=== PATIENT | male | born 1955 | race Caucasian/White ===

== ENCOUNTER 2020-04-15 15:09 | Outpatient (REF) | payer OTHER, SELFPAY | END 2020-04-15 15:10 | disposition home or self-care (01) | LOC: HO.LNP 15:09 | PROVIDERS: Visit Provider Internal Medicine | DX: Z20.828 Contact with and (suspected) exposure to other viral communicable diseases (principal) | CPT/HCPCS: U0003 ==

== ENCOUNTER 2020-08-21 10:48 | Outpatient (REF) | payer OTHER, SELFPAY ==
[2020-08-21 13:49] LABS: MANUAL DIFF FLAG NO
[2020-08-21 13:53] LABS: Basophils Percent Auto 0.5 % (0-2); Eosinophils Absolute Auto 0.4 X10*3/uL (0.0-0.4); Eosinophils Percent Auto 4.9 % (0-4); Hematocrit 45.4 % (42-52); Hemoglobin 14.7 g/dl (14.0-18.0); Imm Gran Abs Auto 0.04 X10*3/uL (0.00-0.03); Imm Gran Pct Auto 0.5 % (0.0-0.4); Lymphocytes Absolute Auto 2.1 X10*3/uL (1.2-4.9); Lymphocytes Percent Auto 26.3 % (20-40); Mean Corpuscular HGB Conc 32.4 g/dl (31.0-36.0); Mean Corpuscular Hemoglobin 25.2 pg (27.0-33.0); Mean Corpuscular Volume 77.7 fL (80-98); Mean Platelet Volume 9.8 fL (9.4-12.4); Monocytes Absolute Auto 0.7 X10*3/uL (0.1-1.2); Monocytes Percent Auto 8.3 % (2-11); Neutrophils Absolute Auto 4.6 X10*3/uL (2.0-8.3); Neutrophils Percent Auto 59.5 % (45-73); Platelet Count 201 X10*3/uL (160-400); Red Blood Count 5.84 X10*6/uL (4.60-5.80); Red Cell Distribution Width 14.2 % (11.0-16.0); White Blood Count 7.8 X10*3/uL (4.8-10.8)
[2020-08-21 14:07] LABS: Estimated Average Glucose 263 mg/dL; Hemoglobin A1c % 10.8 %
[2020-08-21 14:26] LABS: Alanine Aminotransferase 37 U/L (0-40); Albumin Level 4.2 g/dL (3.5-5.0); Alkaline Phosphatase 53 U/L (39-117); Anion Gap 18 (12-20); Aspartate Amino Transferase 29 U/L (5-37); Bilirubin Total 0.6 mg/dL (0.0-1.0); Blood Urea Nitrogen 12 mg/dL (9-16); Calcium 9.2 mg/dL (8.4-10.2); Carbon Dioxide 22 mmol/L (22-29); Chloride 100 mmol/L (96-108); Estimated Glomerular Filt Rate > 60; Glucose Fasting 243 mg/dL (60-99); Potassium 4.5 mmol/L (3.3-5.1); Sodium 135 mmol/L (135-145); Total Protein 7.4 g/dL (6.5-8.0)
== END 2020-08-21 10:49 | disposition home or self-care (01) ==
LOC: HO.10HDL 10:48
PROVIDERS: Visit Provider Internal Medicine
DX: K21.9 Gastro-esophageal reflux disease without esophagitis (principal); E11.9 Type 2 diabetes mellitus without complications; I10 Essential (primary) hypertension; E78.00 Pure hypercholesterolemia, unspecified
CPT/HCPCS: 36415; 80053; 83036; 85025

== ENCOUNTER 2021-02-09 11:32 | Outpatient (REF) | payer OTHER, SELFPAY ==
[2021-02-09 13:59] LABS: MANUAL DIFF FLAG NO
[2021-02-09 14:10] LABS: Basophils Percent Auto 0.4 % (0-2); Eosinophils Absolute Auto 0.4 X10*3/uL (0.0-0.4); Eosinophils Percent Auto 4.3 % (0-4); Hematocrit 47.5 % (42-52); Hemoglobin 15.3 g/dl (14.0-18.0); Imm Gran Abs Auto 0.06 X10*3/uL (0.00-0.03); Imm Gran Pct Auto 0.7 % (0.0-0.4); Lymphocytes Absolute Auto 2.4 X10*3/uL (1.2-4.9); Lymphocytes Percent Auto 29.5 % (20-40); Mean Corpuscular HGB Conc 32.2 g/dl (31.0-36.0); Mean Corpuscular Volume 77.6 fL (80-98); Mean Platelet Volume 10.3 fL (9.4-12.4); Monocytes Absolute Auto 0.7 X10*3/uL (0.1-1.2); Monocytes Percent Auto 8.5 % (2-11); Neutrophils Absolute Auto 4.6 X10*3/uL (2.0-8.3); Neutrophils Percent Auto 56.6 % (45-73); Platelet Count 232 X10*3/uL (160-400); Red Blood Count 6.12 X10*6/uL (4.60-5.80); Red Cell Distribution Width 14.2 % (11.0-16.0); White Blood Count 8.2 X10*3/uL (4.8-10.8)
[2021-02-09 14:25] LABS: Estimated Average Glucose 246 mg/dL; Hemoglobin A1c % 10.2 %
[2021-02-09 14:36] LABS: Alanine Aminotransferase 34 U/L (0-40); Albumin Level 4.4 g/dL (3.5-5.0); Alkaline Phosphatase 47 U/L (39-117); Anion Gap 18 (12-20); Aspartate Amino Transferase 31 U/L (5-37); Bilirubin Total 0.7 mg/dL (0.0-1.0); Blood Urea Nitrogen 9 mg/dL (9-16); Calcium 9.8 mg/dL (8.4-10.2); Carbon Dioxide 23 mmol/L (22-29); Chloride 101 mmol/L (96-108); Estimated Glomerular Filt Rate > 60; Glucose Random 260 mg/dL (60-115); Potassium 4.8 mmol/L (3.3-5.1); Sodium 137 mmol/L (135-145); Total Protein 7.4 g/dL (6.5-8.0)
== END 2021-02-09 11:33 | disposition home or self-care (01) ==
LOC: HO.10HDL 11:32
PROVIDERS: Visit Provider Internal Medicine
DX: E11.9 Type 2 diabetes mellitus without complications (principal); I25.10 Atherosclerotic heart disease of native coronary artery without angina pectoris; I10 Essential (primary) hypertension
CPT/HCPCS: 36415; 80053; 83036; 85025

== ENCOUNTER 2021-05-25 11:28 | Outpatient (REF) | payer OTHER, SELFPAY ==
[2021-05-25 13:41] LABS: Alanine Aminotransferase 33 U/L (0-40); Albumin Level 4.3 g/dL (3.5-5.0); Alkaline Phosphatase 50 U/L (39-117); Anion Gap 17 (12-20); Aspartate Amino Transferase 23 U/L (5-37); Bilirubin Total 0.6 mg/dL (0.0-1.0); Blood Urea Nitrogen 14 mg/dL (9-16); Carbon Dioxide 27 mmol/L (22-29); Chloride 100 mmol/L (96-108); Estimated Average Glucose 258 mg/dL; Estimated Glomerular Filt Rate > 60; Glucose Random 344 mg/dL (60-115); Hemoglobin A1c % 10.6 %; Potassium 4.9 mmol/L (3.3-5.1); Sodium 139 mmol/L (135-145); Total Protein 7.5 g/dL (6.5-8.0)
== END 2021-05-25 11:29 | disposition home or self-care (01) ==
LOC: HO.10HDL 11:28
PROVIDERS: Visit Provider Internal Medicine
DX: E11.9 Type 2 diabetes mellitus without complications (principal); I10 Essential (primary) hypertension; I25.10 Atherosclerotic heart disease of native coronary artery without angina pectoris
CPT/HCPCS: 36415; 80053; 83036

== ENCOUNTER 2022-03-18 11:19 | Outpatient (REF) | payer OTHER, SELFPAY ==
[2022-03-18 13:37] LABS: MANUAL DIFF FLAG NO
[2022-03-18 13:40] LABS: Basophils Absolute Auto 0.1 X10*3/uL (0.0-0.2); Basophils Percent Auto 0.6 % (0-2); Eosinophils Absolute Auto 0.5 X10*3/uL (0.0-0.4); Eosinophils Percent Auto 4.6 % (0-4); Hematocrit 47.5 % (42.0-52.0); Hemoglobin 14.9 g/dl (14.0-18.0); Imm Gran Abs Auto 0.07 X10*3/uL (0.00-0.03); Imm Gran Pct Auto 0.7 % (0.0-0.4); Lymphocytes Absolute Auto 2.6 X10*3/uL (1.2-4.9); Lymphocytes Percent Auto 25.9 % (20-40); Mean Corpuscular HGB Conc 31.4 g/dl (31.0-36.0); Mean Corpuscular Hemoglobin 24.5 pg (27.0-33.0); Mean Corpuscular Volume 78.1 fL (80.0-98.0); Mean Platelet Volume 9.7 fL (9.4-12.4); Monocytes Absolute Auto 0.9 X10*3/uL (0.1-1.2); Monocytes Percent Auto 9.1 % (2-11); Neutrophils Absolute Auto 5.8 x10*3/uL (2.0-8.3); Neutrophils Percent Auto 59.1 % (45-73); Platelet Count 228 X10*3/uL (160-400); Red Blood Count 6.08 X10*6/uL (4.60-5.80); Red Cell Distribution Width 14.1 % (11.0-16.0); White Blood Count 9.8 X10*3/uL (4.8-10.8)
[2022-03-18 13:50] LABS: Estimated Average Glucose 229 mg/dL; Hemoglobin A1c % 9.6 %
[2022-03-18 14:14] LABS: Alanine Aminotransferase 31 U/L (0-40); Albumin Level 4.2 g/dL (3.5-5.0); Alkaline Phosphatase 58 U/L (39-117); Anion Gap 19 (12-20); Aspartate Amino Transferase 31 U/L (5-37); Blood Urea Nitrogen 17 mg/dL (9-16); Calcium 9.8 mg/dL (8.4-10.2); Carbon Dioxide 23 mmol/L (22-29); Chloride 98 mmol/L (96-108); Cholesterol 185 mg/dL; Estimated Glomerular Filt Rate > 60; Glucose Fasting 281 mg/dL (60-99); HDL Cholesterol 32 mg/dL; Potassium 5.3 mmol/L (3.3-5.1); Sodium 135 mmol/L (135-145); Total Protein 7.6 g/dL (6.5-8.0); Triglycerides 582 mg/dL
[2022-03-18 14:19] LABS: Prostate Specific Antigen Scr 0.42 ng/mL (<0.05-4.0)
[2022-03-18 14:29] LABS: Microalbum/Creatinine Ratio Ur 18.8 ug/mg cr
[2022-03-18 14:49] LABS: Bilirubin Total 0.8 mg/dL (0.0-1.0)
== END 2022-03-18 11:20 | disposition home or self-care (01) ==
LOC: HO.10HDL 11:19
PROVIDERS: Visit Provider Internal Medicine
DX: Z12.5 Encounter for screening for malignant neoplasm of prostate (principal); E11.9 Type 2 diabetes mellitus without complications; I25.10 Atherosclerotic heart disease of native coronary artery without angina pectoris; E78.5 Hyperlipidemia, unspecified; G47.33 Obstructive sleep apnea (adult) (pediatric); N40.0 Benign prostatic hyperplasia without lower urinary tract symptoms
CPT/HCPCS: 36415; 80053; 80061; 82043; 83036; 84153; 85025

== ENCOUNTER 2023-06-03 12:11 | Outpatient (REF) | payer MEDICARE, SELFPAY | END 2023-06-03 12:12 | disposition home or self-care (01) | LOC: HO.LAB 12:11 | PROVIDERS: PCP Internal Medicine; Visit Provider Internal Medicine | DX: E11.9 Type 2 diabetes mellitus without complications (principal); E78.00 Pure hypercholesterolemia, unspecified; I25.10 Atherosclerotic heart disease of native coronary artery without angina pectoris | CPT/HCPCS: 36415; 80053; 80061; 82043; 82570; 83036; 85025 ==

== ENCOUNTER 2024-06-05 08:24 | Outpatient (REF) | payer MEDICARE, SELFPAY ==
--- OUTSIDE RECORDS SUMMARY | 2024-06-05 08:36 | XMS_ITS ---
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 This section includes the names of all active insurance providers for the patient. Insurance Provider Type of Coverage Plan Name Start of Policy Coverage End of Policy Coverage Group Number Member ID Insurance Provider's Telephone Number Policy Workman's Name Patient's Relationship to Policy Workman [employer] [facility] (WNR) MEDICARE ADVANTAGE [facility] (WNR) May 30, 2023 [id number] AG [place]PENTER PATIENT MEDICAID MEDICAID [facility] May 30, 2017 MEDICAI D [id number] AG [place]PENTER PATIENT Selected Encounter This section includes the information on record at [place] for the Encounter. Date/Time Encounter Type Encounter Description Reason Pro vider Source May 01, 2024 03:37 PM Outpatient Encounter ADMIN PAT ACTIVTIES (MASNONCT) IHE Encounter Template Text not used by [place] Plan of Treatment: Future Appointments (+ 6 months) and Future Tests (+/- 45 days) The Plan of Treatment section includes future care activities for the patient from all [facility] treatmentfacilities. This section includes future appointments and future orders which are active, pending or scheduled. Future Appointments This section includes appointments that were scheduled to occur 6 months from the date of the Encounter, up to a maximum of 20 appointments. The data comes from all [place] treatment facilities. Appointment Date/Time Appointment Type Appointme nt Facility Name Jul 10, 2024 01:30 PM AMBULATORY - [place]ICINE [place] [facility] [place] [facility] Advance Directives: All historical and current Section Date Range: From patient's date of to the date document was created. This section includes ALL of a patient's completed or amended VA Advance and Rescinded Directives. The entries below indicate that a directive exists for the patient, but an actual copy is not included with this document. The data comes from all [place] facilities. Date Advance Directives Provider Source Jun 15, 2018 ADVANCE DIRECTIVE ROYA ARCE [facility] Encounter Notes: All associated encounter notes This section contains the clinical notes associated to the Encounter. Date/Time Encounter Note(s) Provider Source May 01, 2024 04:15 PM ADDENDUM: LOCAL TITLE: Addendum STANDARD TITLE: ADDENDUM DATE OF NOTE: MAY 01, 2024@16:15:13 ENTRY DATE: MAY 01, 2024@16:15:14 AUTHOR: EULALIA BRAXTON EXP COSIGNER: URGENCY: STATUS: COMPLETED Will forward to [facility]. /lynnette/ EULALIA BRAXTON RN REGISTERED NURSE Signed: 05/01/2024 16:15 Receipt Acknowledged By: 05/02/2024 07:40 /lynnette/ Marilynn Stack, PharmD, BCPS, BCACP VISN1 [facility] PACT Clinical Pharmacist Practitioner === --- Original Document --- 05/01/24 OUTPATIENT MEDICATION REQUEST: Medication Request Date of Request: Apr Is this a New Medication? No GLUCOSE SENSOR FREESTYLE VLADISLAV 3 (N/F) [facility]: [id number] Verb: USE (3) *Dosage: 1 SENSOR *Route: MISCELLANEOUS *Schedule: Q14D The following actions were performed: PACT Team RN and Provider added as additional Signers to this request *Please let patient know that this request may take up to 72 hours to process.* /nuzhat QUEZADA Signed: 05/01/2024 15:38 Receipt Acknowledged By: 05/01/2024 16:15 /nuzhat BRAXTON RN REGISTERED NURSE * AWAITING SIGNATURE * JORDY PONCE [facility] May 01, 2024 03:37 PM MEDICATION MGT NOT E: LOCAL TITLE: OUTPATIENT MEDICATION REQUEST STANDARD TITLE: MEDICATION MGT NOTE DATE OF NOTE: MAY 01, 2024@15:37 ENTRY DATE: MAY 01, 2024@15:38:06 AUTHOR: FARRUKH QUEZADA EXP COSIGNER: URGENCY: STATUS: COMPLETED OUTPATIENT MEDICATION REQUEST Has ADDENDA Medication Request Date of Request: Apr Is this a New Medication? No GLUCOSE SENSOR FREESTYLE VLADISLAV 3 (N/F) [facility]: [id number] Verb: USE (3) *Dosage: 1 SENSOR *Route: MISCELLANEOUS *Schedule: Q14D The following actions were performed: PACT Team RN and Provider added as additional Signers to this request *Please let patient know that this request may take up to 72 hours to process.* /nuzhat QUEZADA Signed: 05/01/2024 15:38 Receipt Acknowledged By: 05/01/2024 16:15 /lynnette/ EULALIA BRAXTON RN REGISTERED NURSE 05/02/2024 13:38 /lynnette/ JORDY PONCE MD Primary Care Physician 05/01/2024 ADDENDUM STATUS: COMPLETED Will forward to [facility]. /nuzhat BRAXTON RN REGISTERED NURSE Signed: 05/01/2024 16:15 Receipt Acknowledged By: 05/02/2024 07:40 /lynnette/ Marilynn Stack, PharmD, BCPS, BCACP VISN1 [facility] PACT Clinical Pharmacist Practitioner FARRUKH QUEZADA [facility]
--- OUTSIDE RECORDS SUMMARY | 2024-06-05 08:36 | XMS_ITS ---
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 Date/Time Encounter Type Encounter Description Reason Pro vider Source Mar 13, 2024 10:27 AM Outpatient Encounter PRIMARY CARE/MEDICINE IHE Encounter Template Text not used by VA Plan of Treatment: Future Appointments (+ 6 [...] 20 appointments. The data comes from all [place] treatment facilities. Appointment Date/Time Appointment Type Appointme nt Facility Name Jul 10, 2024 01:30 PM AMBULATORY - MEDICINE [place] [facility] [place] [facility] Advance Directives: All historical and current Section Date Range: From patient's date of to the date document was created. This section includes ALL of a patient's completed or amended VA Advance and Rescinded Directives. The entries below indicate that a directive exists for the patient, but an actual copy is not included with this document. The data comes from all [place] facilities. Date Advance Directives Provider Source Jun 15, 2018 ADVANCE DIRECTIVE ROYA ARCE [facility] Encounter Notes: All associated encounter notes This section contains the clinical notes associated to the Encounter. Date/Time Encounter Note(s) Provider Source Mar 13, 2024 10:32 AM NURSING ADMINISTRA TIVE NOTE: LOCAL TITLE: NON-VA PRESCRIPTION STANDARD TITLE: NURSING ADMINISTRATIVE NOTE DATE OF NOTE: MAR 13, 2024@10:32 ENTRY DATE: MAR 13, 2024@10:33:10 AUTHOR: EULALIA BRAXTON EXP COSIGNER: URGENCY: STATUS: COMPLETED NON VA Prescription Date: Feb Prescriber Name/Tel/Fax : Skinny Garcia MD PH: [phone] RX : Atorvastatin 40 mg tablet Sig: Take 1 tab by mouth daily QTY: 90 Refills: 3 DOSAGE CHANGE: NO RX : Lisinopril 5 mg tablet Sig: Take 1 tab by mouth daily QTY: 90 Refills: 3 DOSAGE CHANGE: NO RX : Glipizide 5 mg tablet Sig: Take 1 tab by mouth twice a day QTY: 360 Refills: 3 DOSAGE CHANGE: NO 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 Jul /lynnette/ EULALIA BRAXTON RN REGISTERED NURSE Signed: 03/13/2024 10:35 Receipt Acknowledged By: 03/13/2024 15:21 /nuzhat PONCE MD Primary Care Physician EULALIA BRAXTON Mar 13, 2024 10:27 AM NURSING ADMINISTRA TIVE NOTE: LOCAL TITLE: NON-VA PRESCRIPTION STANDARD TITLE: NURSING ADMINISTRATIVE NOTE DATE OF NOTE: MAR 13, 2024@10:27 ENTRY DATE: MAR 13, 2024@10:27:37 AUTHOR: EULALIA BRAXTON EXP COSIGNER: URGENCY: STATUS: COMPLETED NON VA Prescription Date: Feb Prescriber Name/Tel/Fax : Skinny Garcia MD PH: [phone] RX : Metoprolol Succinate SA 100 mg tablet Sig: Take 1 tab by mouth daily QTY: 90 Refills: 3 DOSAGE CHANGE: NO PICK-UP SAMEER [facility]PENTER [facility] /lynnette/ EULALIA BRAXTON RN REGISTERED NURSE Signed: 03/13/2024 10:32 Receipt Acknowledged By: 03/15/2024 05:38 /nuzhat PONCE MD Primary Care Physician EULALIA BRAXTON
--- OUTSIDE RECORDS SUMMARY | 2024-06-05 08:37 | XMS_ITS | Encounter Summary ---
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 Date/Time Encounter Type Encounter Description Reason Provider Source Nov 09, 2023 01:00 PM PSYTX W PT 30 MINUTES PCMHI INDIV ICD-10-CM F32.A Depression, unspecified SAGAR LAZARO Encounter Template Text not used by VA Assessments - Encounter Diagnoses This section includes the primary and secondary diagnoses documented for the Encounter. Date/Time Primary/Secondary Diagnosis Diagnosis Name Provider Source Nov 10, 2023 10:59 PM PRIMARY Depression, unspecified SAGAR LAZARO Plan of Treatment: Future Appointments (+ 6 months) and Future Tests (+/- 45 days) The Plan of Treatment section includes future care activities for the patient from all [place] [facility]. This section includes future appointments and future orders which are active, pending or scheduled. Future Appointments This section includes appointments that were scheduled to occur 6 months from the date of the Encounter, up to a maximum of 20 appointments. The data comes from all [place] treatment facilities. Appointment Date/Time Appointment Type Appointme nt Facility Name Nov 10, 2023 01:00 PM AMBULATORY - MEDICINE [facility] Nov 15, 2023 01:00 PM [facility]ULAT[facility] - MEDICINE [facility] Jan 11, 2024 12:30 PM [facility]ULAT[facility] - MEDICINE [facility] Feb 29, 2024 01:00 PM AMBULATORY - PSYCHIATRY [facility] Social History: Smoking Status (Most current) and Tobacco Use (All prior to encounter date) This section includes the most current, and the historical, smoking and tobacco- related health factors from the [place] facility where the Encounter took place. Current Smoking Status This section includes the most current smoking, or tobacco-related health factor, from the [place] facility where the Encounter took place. Date/Time Current Smoking Status Comment Facil ity Jul 13, 2023 12:30 PM VA-TOBACCO FORMER USER [place] Tobacco Use History This section includes a history of the smoking, or tobacco-related health factors, that were collected on or before the date of the Encounter. The data comes from the [place] facility where the Encounter took place. Date/Time Smoking Status/Tobacco Use Comment F acility Jul 13, 2023 12:30 PM VA-TOBACCO QUIT 5 TO < 15 YRS [place] Jul 13, 2022 01:30 PM VA-TOBACCO FORMER USER [place] Jul 13, 2022 01:30 PM VA-TOBACCO QUIT 5 TO < 15 YRS [place] Jun 24, 2021 02:00 PM VA-TOBACCO FORMER USER [place] Jun 24, 2021 02:00 PM VA-TOBACCO QUIT 15 YRS OR MORE [place] October 25, 2018 02:45 PM VA-TOBACCO FORMER USER [place] October 25, 2018 02:45 PM VA-TOBACCO QUIT 5 TO < 15 YRS [place] October 10, 2017 09:12 AM QUIT TOBACCO USE > 7 YEARS AGO [facility] Advance Directives: All historical and current Section Date Range: From patient's date of to the date document was created. This section includes ALL of a patient's completed or amended VA Advance and Rescinded Directives. The entries below indicate that a directive exists for the patient, but an actual copy is not included with this document. The data comes from all [place] facilities. Date Advance Directives Provider Source Jun 15, 2018 ADVANCE DIRECTIVE ROYA ARCE [facility] Encounter Notes: All associated encounter notes This section contains the clinical notes associated to the Encounter. Date/Time Encounter Note(s) Provider Source Nov 09, 2023 01:00 PM MENTAL HEALTH OUTP ATIENT NOTE: LOCAL TITLE: PRIMARY MENTAL HEALTH OUTPATIENT FOLLOW UP NOTE STANDARD TITLE: MENTAL HEALTH OUTPATIENT NOTE DATE OF NOTE: NOV 09, 2023@13:00 ENTRY DATE: NOV 09, 2023@13:57:36 AUTHOR: SAGAR LAZARO COSIGNER: URGENCY: STATUS: COMPLETED VISIT DURATION: 30 min VISIT TYPE: Individual, [id number], follow-up visit PCP: JORDY PONCE DIAGNOSIS: Depressive Disorder, unspecified REASON FOR FOLLOW UP: Anger, depression, insomnia. VET'S STATEMENT OF GOAL AND CONCERNS: The reports he is doing excellent . He is very pleased to have learned he will be scheduled for cataract surgery in the near term. He reports he has been biking on a local trail 1-2x/wk. 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 I am trying to take things as they come . MEDICATION: VENLAFAXINE - Maybe more relaxed since dose was increased INTERVENTION: Reviewed progress toward goal of improving mood and better managing anger. DIAGNOSTIC IMPRESSIONS/PLAN: is a 68-year-old single man referred by clinical pharmacist to [facility] psychologist for anger, depression and insomnia. The [place] is coping with mild symptoms of depression and anxiety with mild interference in psychosocial functioning at this time. Today, he expresses feeling as though his situation has improved and voices adequate coping. No [facility] follow-up planned at this time. CURRENT IMPRESSION OF LETHALITY RISK / PLAN FOR RISK MANAGEMENT: presents at low risk of harm to self or others at this time. INTERDICIPLINARY TREATMENT PLANNING INVOLVING: PACT PLAN FOR FOLLOW-UP: Treatment goals met. [facility] will call for [facility] follow-up visit as needed in the future. /lynnette/ SAGAR LAZARO PSYD CLINICAL PSYCHOLOGIST Signed: 11/10/2023 23:00 SAGAR LAZARO
--- OUTSIDE RECORDS SUMMARY | 2024-06-05 08:37 | XMS_ITS | Encounter Summary ---
Author Name [facility] [place] [facility] [place] Address [address] [place] [address] Care Team Providers Care Bucket Turner Name Role Phone ROSARIOJORDY Primary Care Provider Unavailabl e Insurance Providers: [...] Workman's Name Patient's Relationship to Policy Workman [facility] (WNR) MEDICARE ADVANTAGE [facility] (WNR) May 30, 2023 [id number] AG CARPENTER PATIENT MEDICAID MEDICAID [facility] May 30, 2017 MEDICAI D [id number] AG CARPENTER PATIENT Selected Encounter This section includes the information on record at CT for the Encounter. Date/Time Encounter Type Encounter Description Reason Provider Source Aug 10, 2023 01:00 PM MTMS BY PHARM ADDL 15 MIN CLINICAL PHARMACY ICD-10-CM E11.9 Type 2 diabetes mellitus without complications BELIA FLOR Keshia Encounter Template Text not used by CT Assessments - Encounter Diagnoses This section includes the primary and secondary diagnoses documented for the Encounter. Date/Time Primary/Secondary Diagnosis Diagnosis Name Provider Source Aug 10, 2023 02:48 PM PRIMARY Type 2 diabetes mellitus without complications BELIA FLOR Plan of Treatment: Future Appointments (+ 6 months) and Future Tests (+/- 45 days) The Plan of Treatment section includes future care activities for the [facility] This section includes future appointments and future orders which are active, pending or scheduled. Future Appointments This section includes appointments that were scheduled to occur 6 months from the date of the Encounter, up to a maximum of 20 appointments. The data comes from all [facility]. Appointment Date/Time Appointment Type Appointme nt Facility Name Sep 21, 2023 12:30 PM AMBULATORY - MEDICINE [facility] C [facility] [place] [facility] October 17, 2023 01:00 PM AMBULATORY - PSYCHIATRY [facility] Nov 08, 2023 02:30 PM AMBULATORY - MEDICINE [facility] C [facility] [place] [facility] Nov 09, 2023 01:00 PM AMBULATORY - PSYCHIATRY [facility] Nov 10, 2023 01:00 PM AMBULATORY - MEDICINE [facility] C [facility] [place] [facility] Nov 15, 2023 01:00 PM AMBULATORY - MEDICINE [facility] Jan 11, 2024 12:30 PM [facility] Lab Results: +/- 30 days of the encounter This section includes the Chemistry and Hematology Lab Results on record with CT for the patient. Radiology Reports and Pathology Reports are provided separately, in subsequent sections. Lab Results This section contains the Chemistry/Hematology Results that were resulted 30 days before or 30 daysafter the date of the Encounter. Date/Time Source Result Type Result - Unit Interpretation Reference Range Comment Jul 12, 2023 02:27 PM [facility] MICROALBUMIN CREATININE RATIO PANEL Specimen Type: URINE No comment entered. Ordering Provider: JORDY PONCE Report Released Date/Time: Jul 13, 2022 05:58 AM Reporting Lab: [facility] [address] [id number] Performing Lab: [facility] [address] [id number] MICROALBUMIN/C REATININE RATIO 64.7 mg/g H 0-29.9 MICROALBUMIN,Q UANTITATIVE 3.8 mg/dL RR UNAVAIL CREATININE URINE 58.70 mg/dL Social History: Smoking Status (Most current) and Tobacco Use (All prior to encounter date) This section includes the most current, and the historical, smoking and tobacco- related health factors from the [place] facility where the Encounter took place. Current Smoking Status This section includes the most current smoking, or tobacco-related health factor, from the [place] facility where the Encounter took place. Date/Time Current Smoking Status Comment Mg ity Jul 13, 2023 12:30 PM VA-TOBACCO FORMER USER [place] Tobacco Use History This section includes a history of the smoking, or tobacco-related health factors, that were collected on or before the date of the Encounter. The data comes from the [facility] where the Encounter took place. Date/Time Smoking Status/Tobacco Use Comment F acility Jul 13, 2023 12:30 PM VA-TOBACCO QUIT 5 TO < 15 YRS [place] Jul 13, 2022 01:30 PM VA-TOBACCO FORMER USER [place] Jul 13, 2022 01:30 PM VA-TOBACCO QUIT 5 TO < 15 YRS [place] Jun 24, 2021 02:00 PM VA-TOBACCO FORMER USER [place] Jun 24, 2021 02:00 PM VA-TOBACCO QUIT 15 YRS OR MORE [place] October 25, 2018 02:45 PM VA-TOBACCO FORMER USER [place] October 25, 2018 02:45 PM VA-TOBACCO QUIT 5 TO < 15 YRS [place] October 10, 2017 09:12 AM QUIT TOBACCO USE > 7 YEARS AGO [facility] Advance Directives: All historical and current Section Date Range: From patient's date of to the date document was created. This section includes ALL of a patient's completed or amended CT Advance and Rescinded Directives. The entries below indicate that a directive exists for the patient, but an actual copy is not included with this document. The data comes from all [facility]. Date Advance Directives Provider Source Jun 15, 2018 ADVANCE DIRECTIVE ROYA ARCE [facility] Encounter Notes: All associated encounter notes This section contains the clinical notes associated to the Encounter. Date/Time Encounter Note(s) Provider Source Aug 10, 2023 02:58 PM DIABETOLOGY NOTE: LOCAL TITLE: INSULIN PUMP/CGM DOWNLOAD (T) STANDARD TITLE: DIABETOLOGY NOTE DATE OF NOTE: AUG 10, 2023@14:58 ENTRY DATE: AUG 10, 2023@14:58:08 AUTHOR: BELIA FLOR EXP COSIGNER: URGENCY: STATUS: COMPLETED Please select: Personal Continuous Glucose Monitor - [facility] 3 Date of Documentation:Jul Please see attached scanned document in [facility]. /lynnette/ Belia lFor PharmD Clinical Pharmacist Practitioner Signed: 08/10/2023 14:58 BELIA FLOR [place] Aug 10, 2023 01:04 PM PHARMACY OUTPATIEN T NOTE: LOCAL TITLE: PHARMACY CLINIC NOTE STANDARD TITLE: PHARMACY OUTPATIENT NOTE DATE OF NOTE: AUG 10, 2023@13:04 ENTRY DATE: AUG 10, 2023@13:04:36 AUTHOR: BELIA FLOR EXP COSIGNER: URGENCY: STATUS: COMPLETED Briefly, SAMEER CARPENTER is a 68 year old WHITE MALE referred to the [facility] clinical pharmacist practitioner clinic for comprehensive medication management. Patient's identity was confirmed using at least two indicators. Subjective: CURRENT DIABETES MEDICATIONS: - Empagliflozin 25mg/metformin 1000mg SA once daily - Insulin glargine - using 25 units QHS - Glipizide 5mg BID - still thinks he might be taking 10mg BID - mixed bottles of 5 and 10mg takes morning with food and evening at bedtime - Trulicity 0.75mg qweekly PREVIOUS DIABETES MEDICATIONS: - GI side effects with metformin > 1000mg/day Medication Adherence: States he rarely misses doses. Tobacco: None since [place] in 2010 Alcohol: 2-3 drinks most weeks, sometimes a little more. Only drinks socially Marijuana/Illicit Drugs: None Typical Diet: Eating more salads again B: Coffee and PB toast L: Usually skips unless he goes out; [place] or chicken wrap D: Sauce with meatballs (with or without pasta); protein with salad; baked potato Snacks: carrots with ranch; tortilla chips; potato chips; cutting back on ice cream Drinks: Water, coffee Exercise/Activity: less lately -Activities: Walks during warmer months -Minutes/week spent doing moderate intensity or greater: Not much lately SMBG: Summary of [facility] Report (see [facility] for full report) Date >250 181-250 70-180 <70 <54 Avg Gluc GMI (%) ----(mg/dl) (%) 08/10/23 4% 17% 78% 1% 0% 142 6.7% *used 4 week report d/t missing data 07/13/23 14% 29% 57% 0% 0% 179 7.6% 06/29/23 1% 10% 84% 5% 0% 119 6.2 05/31/23 1% 19% 80% 0% 0% 140 6.7% Hypoglycemia: had a few low readings overnight, asymptomatic. Treats with bread Objectives: Vitals SVSO - Vital Select Outpat. Measurement DT TEMP RESP PULSE POx BP F(C) (L/MIN)(%) 07/13/2023 14:00 130/76 Labs: HEMOGLOBIN A1C TREND Collection DT Spec HGBA1c 07/08/2023 12:04 BLOOD 6.5 H 04/07/2023 13:21 BLOOD 6.4 H 12/17/2022 11:22 BLOOD 6.8 H 09/23/2022 10:51 BLOOD 7.4 H 07/07/2022 10:56 BLOOD 9.7 H BMP (NONFASTING) Collection DT Specimen Test Name Result Units Ref Range 07/08/2023 12:04 SERUM UREA NITROGEN 26 H mg/dL 7 - 25 07/08/2023 12:04 SERUM GLUCOSE 131 H mg/dL 65 - 100 07/08/2023 12:04 SERUM SODIUM 136 mmol/L 135 - 145 07/08/2023 12:04 SERUM POTASSIUM 4.7 mmol/L 3.5 - 5.0 07/08/2023 12:04 SERUM CHLORIDE 105 mmol/L 100 - 110 07/08/2023 12:04 SERUM CO2 21 mEq/L 20 - 30 07/08/2023 12:04 SERUM CREATININE, Serum 1.09 mg/dL 0.50 - 1.40 07/08/2023 12:04 SERUM eGFR(CKD-EPI 2020 75 mL/min Ref: >=60 CBC TREND Collection DT Spec WBC RBC HGB HCT MCV MCH PLT 07/08/2023 12:04 BLOOD 8.06 5.82 H 14.6 46.1 79.2 L 25.1 L 192 07/07/2022 10:56 BLOOD 8.07 5.99 H 14.7 46.9 78.3 L 24.5 L 194 05/27/2021 09:58 BLOOD 7.81 5.89 H 14.7 47.0 79.8 L 25.0 L 198 12/05/2018 13:22 BLOOD 8.31 6.32 H 16.0 50.1 79.3 L 25.3 L 237 12/02/2017 11:03 BLOOD 7.18 6.07 H 15.1 47.3 77.9 L 24.9 L 191 LIVER PANEL TREND Collection DT Spec AST ALT T BILI ALK DANIA T. PROT ALBUMIN 07/08/2023 12:04 SERUM 28 35 0.5 39 L 7.3 3.9 07/07/2022 10:56 SERUM 26 30 0.5 48 7.4 3.7 05/27/2021 09:58 SERUM 27 32 0.5 48 7.3 3.6 06/11/2019 11:20 SERUM 23 34 0.5 51 7.4 3.9 12/05/2018 13:22 SERUM 39 H 46 0.8 57 7.9 4.1 LIPID PANEL TREND Collection DT Spec CHOL HDL CHO/HDL LDL-d LDL-c TRIG 07/08/2023 12:04 SERUM 178 34 L 5.2 106 Reflex to dLDL 320 H 12/17/2022 11:22 SERUM 133 31 L 4.3 49 264 H 09/23/2022 10:51 SERUM 154 33 L 4.7 74 234 H 07/07/2022 10:56 SERUM 189 35 L 5.4 92 Reflex to dLDL 493 H 05/27/2021 09:58 SERUM 184 34 L 5.4 83 Reflex to dLDL 493 H THYROID PANEL Collection DT Specimen Test Name Result Units Ref Range 07/07/2022 10:56 SERUM TSH 1.30 uIU/mL 0.35 - 5.00 VITAMIN D 25-OH Collection DT Specimen Test Name Result Units Ref Range 05/27/2021 09:58 SERUM VITAMIN D (25-OH) 29 ng/mL 20 - 50 Medications: Active and Recently Outpatient Medications (including Supplies): Active Outpatient Medications Status 1) ATORVASTATIN CALCIUM 40MG TAB TAKE ONE TABLET BY ACTIVE MOUTH ONCE DAILY FOR HIGH CHOLESTEROL 2) EMPAGLIFLOZIN 25/METFORM 1000MG 24HR TAB TAKE 1 ACTIVE TABLET BY MOUTH ONCE DAILY FOR TYPE 2 DIABETES 3) FENOFIBRATE 145MG TAB TAKE ONE TABLET BY MOUTH ONCE ACTIVE DAILY FOR HIGH CHOLESTEROL REPLACES GEMFIBROZIL 4) GLIPIZIDE 5MG TAB TAKE ONE TABLET BY MOUTH TWICE ACTIVE DAILY BEFORE A MEAL FOR TYPE 2 DIABETES MELLITUS 5) GLUCOSE SENSOR FREESTYLE LAMAR 3 USE 1 SENSOR ACTIVE DIRECTED EVERY 14 DAYS 6) LISINOPRIL 5MG TAB TAKE ONE TABLET BY MOUTH ONCE ACTIVE DAILY TO CONTROL BLOOD PRESSURE (FROM DR FABBY MEDINA) 7) METOPROLOL SUCCINATE 100MG SA TAB TAKE ONE TABLET BY ACTIVE MOUTH ONCE DAILY FOR CHRONIC HEART FAILURE FOR BLOOD PRESSURE/HEART Inactive Outpatient Medications Status 1) ACCU-CHEK GUIDE (GLUCOSE) TEST STRIP USE 1 STRIP TO TEST BLOOD SUGARS TWICE DAILY 2) LANCET,SOFTCLIX USE 1 LANCET TOPICALLY TWICE DAILY TO TEST BLOOD SUGAR Active Non-VA Medications Status 1) Non-VA ASPIRIN 81MG EC TAB 81MG BY MOUTH DAILY ACTIVE 2) Non-VA DULAGLUTIDE 0.75MG/0.5ML INJ PEN 0.75MG ACTIVE SUBCUTANEOUSLY ONCE A WEEK 3) Non-VA INSULIN,GLARGINE-YFGN 100UNIT/ML PEN 3ML 25 ACTIVE UNITS SUBCUTANEOUSLY ONCE DAILY 4) Non-VA METOPROLOL SUCCINATE 25MG SA TAB 25MG BY MOUTH ACTIVE AT BEDTIME 5) Non-VA MULTIVITAMIN/MINERALS CAP/TAB 1 TABLET BY ACTIVE MOUTH ONCE DAILY 6) Non-VA VENLAFAXINE HCL 75MG TAB 75MG BY MOUTH ONCE ACTIVE DAILY 15 Total Medications Remote Medications: No Active Remote Medications for this patient Allergy Assessment: Patient has answered NKA Assessment: DIABETES Diabetes control is at goal with some overnight hypoglycemia. Adherence to glipizide dose and adherence to taking it with meals might help mitigate some of these lows. If not, he can slightly taper his insulin. Hypoglycemia may be in part due to improved diet, as well. Hgb A1c Goal Fasting/Preprandial BG Goal Bedtime BG Goal <7-7.5% 80-130 mg/dL 80-180 mg/dL CARDIOVASCULAR - Hypertension - Blood Pressure - at goal - ASCVD - CPK was elevated with rosuvastatin and complained of muscle pain. Muscle pain has improved since changing back to atorvastatin. PREVENTIVE CARE - Most recent visit to Podiatry: Consult was discontinued by Podiatry - Most recent visit to Optometry: 11/05/22: Type II diabetes without retinopathy or macular edema OU. Plan: -Only take glipizide with meals, and throw out old glipizide bottle to assure 5mg dose -If continued hypoglycemia, reduce insulin glargine-yfgn to 23 units once daily -Reviewed signs, symptoms, and treatmetn of hypoglycemia. -Medications reconciled -Otherwise continue current medications EDUCATION -A shared decision-making approach was used in the development of this plan, involving the Carey, clinician, and any caregivers present. The Carey was provided the opportunity express questions or concerns, and the plan was adjusted as needed to address these concerns. -Reviewed with Carey any new medications, changes to the medication list, education, and plan from today's visit. Patient (and/or caregiver) verbalized understanding of the plan, including possible known risks and benefits, and had no additional questions. RTC: 4 weeks Time spent with patient: 30 minutes PharmD tool: PBAbby PharmGregoria Pharmacotherapy Rem V12: PHARMACIST INTERVENTIONS: TYPE 2 DIABETES MELLITUS Medication Intervention(s) Adjust dose or frequency of current medication due to hypoglycemia Address adherence Medication reconciliation (changes to active VA and non-VA medication lists to reconcile differences) No changes to medication lists made (medication review completed, no discrepancies identified) /es/ Belia Flor PharmD Clinical Pharmacist Practitioner Signed: 08/10/2023 14:57 BELIA FLOR
--- OUTSIDE RECORDS SUMMARY | 2024-06-05 08:37 | XMS_ITS ---
Author Name [facility] [place] [facility] [place] Address [address] [place] [address] Care Team Providers Care Dermatological Surgeon Name Role Phone JORDY PONCE Primary Care [...] Workman's Name Patient's Relationship to Policy Workman [facility] MCR (WNR) MEDICARE ADVANTAGE M[facility] (WNR) May 30, 2023 [id number] AG CARPENTER PATIENT MEDICAID MEDICAID [facility] May 30, 2017 MEDICAI D [id number] AG CARPENTER PATIENT Selected Encounter This section includes the information on record at [place] for the Encounter. Date/Time Encounter Type Encounter Description Reason Pro vider Source Nov 21, 2023 06:25 PM Outpatient Encounter [facility] CONSULT IHE Encounter Template Text not used by [...] 20 appointments. The data comes from all [place] treatment facilities. Appointment Date/Time Appointment Type Appointme nt Facility Name Jan 11, 2024 12:30 PM AMBULATORY [place]ICINE [place] [facility] Feb 29, 2024 01:00 PM AMBULATORY - PSYCHIATRY [facility] Advance Directives: All historical and current Section Date Range: From patient's date of to the date document was created. This section includes ALL of a patient's completed or amended [place] Advance and Rescinded Directives. The entries below indicate that a directive exists for the patient, but an actual copy is not included with this document. The data comes from all [place] facilities. Date Advance Directives Provider Source Jun 15, 2018 ADVANCE DIRECTIVE ROYA ARCE [facility] Encounter Notes: All associated encounter notes This section contains the clinical notes associated to the Encounter. Date/Time Encounter Note(s) Provider Source Nov 21, 2023 06:25 PM ADMINISTRATIVE NOTE: LOCAL TITLE: ADMINISTRATIVE NOTE STANDARD TITLE: ADMINISTRATIVE NOTE DATE OF NOTE: NOV 21, 2023@18:25 ENTRY DATE: NOV 21, 2023@18:25:57 AUTHOR: DRAKE ANN EXP COSIGNER: URGENCY: STATUS: COMPLETED ADMINISTRATIVE NOTE Has ADDENDA Patient is seen in [xx] [facility] [] [facility] [] [facility] [] [facility] [place] leaving message on [facility] Call Center voicemail wanting to: [] Speak to provider (name): Concern: [] Schedule a new appointment/ reschedule missed appt.: [] Cancelling an existing appt. [xx] Other: Referral to Ophthalmology Clinic: ([place]) [x] [facility] calling to check on status of referral from Dr. Vazquez to [facility] Dr. Byrne to make sure everything is in order for his appt. which 's message states is scheduled for next week. Vet [xx] would like [] does not need [] did not specify if they wanted a call back regarding this matter. Call back phone number left on confirmed same as phone contact on file: /lynnette/ ZHENG SCHNEIDER PHYSICAL THERAPIST Signed: 11/21/2023 18:30 Receipt Acknowledged By: 11/24/2023 15:28 /lynnette/ [employer] TENDERADJUNCT FACULTY INSTRUCTOR [facility] 11/24/2023 ADDENDUM STATUS: COMPLETED Made attempts to reach LVM 11/24/23 with my contact information, also remailing veterans referral letter which is good for 9 more visits until 11/10/2024. /lynnette/ [employer] TENDERADJUNCT FACULTY INSTRUCTOR [facility] Signed: 11/24/2023 15:31 DRAKE ANN [place] [facility]
--- OUTSIDE RECORDS SUMMARY | 2024-06-05 08:37 | XMS_ITS | Encounter Summary ---
Author Name [facility] [place] [facility] [place] [facility] [place] Address [address] [place] [address] Care Team Providers Care Slate Worker Name Role Phone JORDY PONCE Primary Care [...] Workman's Name Patient's Relationship to Policy Workman [facility] (WNR) MEDICARE ADVANTAGE [facility] (WNR) May 30, 2023 [id number] AG CARPENTER PATIENT MEDICAID MEDICAID [facility] May 30, 2017 MEDICAI D [id number] AG CARPENTER PATIENT Selected Encounter This section includes the information on record at [place] for the Encounter. Date/Time Encounter Type Encounter Description Reason Provider Source October 17, 2023 01:00 PM PSYTX W PT 45 MINUTES PCMHI INDIV ICD-10-CM F32.A Depression, unspecified SAGAR LAZARO Encounter Template Text not used by VA Assessments - Encounter Diagnoses This section includes the primary and secondary diagnoses documented for the Encounter. Date/Time Primary/Secondary Diagnosis Diagnosis Name Provider Source Nov 04, 2023 01:47 PM PRIMARY Depression, unspecified SAGAR LAZARO Plan of Treatment: Future Appointments (+ 6 months) and Future Tests (+/- 45 days) The Plan of Treatment section includes future care activities for the patient from [facility] [place] [facility] This section includes future appointments and future orders which are active, pending or scheduled. Future Appointments This section includes appointments that were scheduled to occur 6 months from the date of the Encounter, up to a maximum of 20 appointments. The data comes from all [facility]. Appointment Date/Time Appointment Type Appointme nt Facility Name Nov 08, 2023 02:30 PM [facility] Nov 09, 2023 01:00 PM [facility]ULAT[facility] - [facility]ATRY [facility] Nov 10, 2023 01:00 PM [facility] Nov 15, 2023 01:00 PM [facility] [place] [place] [facility] [place] [facility] Jan 11, 2024 12:30 PM AMBULATORY - MEDICINE [place] [facility] [place] [facility] Feb 29, 2024 01:00 PM AMBULATORY - PSYCHIATRY [facility] Social History: Smoking Status (Most current) and Tobacco Use (All prior to encounter date) This section includes the most current, and the historical, smoking and tobacco- related health factors from the [place] facility where the Encounter took place. Current Smoking Status This section includes the most current smoking, or tobacco-related health factor, from the [facility] where the Encounter took place. Date/Time Current Smoking Status Comment Facil ity Jul 13, 2023 12:30 PM VA-TOBACCO FORMER USER [facility] Tobacco Use History This section includes a history of the smoking, or tobacco-related health factors, that were collected on or before the date of the Encounter. The data comes from the [facility] where the Encounter took place. Date/Time Smoking Status/Tobacco Use Comment F acility Jul 13, 2023 12:30 PM VA-TOBACCO QUIT 5 TO < 15 YRS [facility] Jul 13, 2022 01:30 PM VA-TOBACCO FORMER USER [facility] Jul 13, 2022 01:30 PM VA-TOBACCO QUIT 5 TO < 15 YRS [facility] Jun 24, 2021 02:00 PM VA-TOBACCO FORMER USER [facility] Jun 24, 2021 02:00 PM VA-TOBACCO QUIT 15 YRS OR MORE [facility] October 25, 2018 02:45 PM VA-TOBACCO FORMER USER [facility] October 25, 2018 02:45 PM VA-TOBACCO QUIT 5 TO < 15 YRS [facility] October 10, 2017 09:12 AM QUIT TOBACCO USE > 7 YEARS AGO [facility] Advance Directives: All historical and current Section Date Range: From patient's date of to the date document was created. This section includes ALL of a patient's completed or amended [place] Advance and Rescinded Directives. The entries below indicate that a directive exists for the patient, but an actual copy is not included with this document. The data comes from all [place] facilities. Date Advance Directives Provider Source Jun 15, 2018 ADVANCE DIRECTIVE ROYA ARCE [facility] Encounter Notes: All associated encounter notes This section contains the clinical notes associated to the Encounter. Date/Time Encounter Note(s) Provider Source October 17, 2023 01:03 PM MENTAL HEALTH CONS ULT: LOCAL TITLE: PC-MH INTEGRATION/CONSULT REPORT STANDARD TITLE: MENTAL HEALTH CONSULT DATE OF NOTE: OCTOBER 17, 2023@13:03 ENTRY DATE: OCTOBER 17, 2023@13:03:26 AUTHOR: SAGAR LAZARO COSIGNER: URGENCY: STATUS: COMPLETED VISIT DURATION: 50 min VISIT TYPE: Individual REFERRED BY: Aj Roblero, PharmD PCP: DR. PONCE REFERRAL TYPE: Scheduled Consult Visit DIAGNOSIS: Depressive disorder, unspecified REASON FOR REFERRAL / CHIEF COMPLAINT: Anger, depression, insomnia. [facility] Psychologist's role was explained to the [place]. Informed consent and limits of confidentiality were reviewed. SCREENING: PHQ-9, 8, MILD symptoms of Depression, Somewhat Difficult ROYER-7, 4, MILD symptoms of Anxiety, Not Difficult at All SESSION FOCUS: Initial Assessment of Presenting Symptoms and Concerns VET'S STATEMENT OF GOAL AND CONCERNS: The [place] shares that for the past few years, his anger has been triggered by specific things, e.g. 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 He states, I went off on her . He relfects that he is psychologically minded and they were able to talk things out and come to an understanding. He expresses feeling pleased that she incorporated some of his ideas. I am always the nice naif and what is it getting me? MEDICATION: VENLAFAXINE, 75mg for years. Increased to 150mg two weeks ago. No noticable effect. PAST BEHAVIORAL HEALTH TREATMENT: Saw psychologist twice before d/t loss of parents. In saw Riccardo Cohen in [place]. FUNCTIONAL ASSESSMENT: o CLOSE RELATIONSHIPS: Lives alone in apartment. Comfortable there. Likes to live alone. Takes care of others. 42yo niece with breast cancer. Father and sister had strokes. Both parents are . Had 5 siblings. Always put in friend zone . Family hx of mild depression. o ETOH: Socially o TOBACCO: Quit 2010. o NON-PRESCRIPTION DRUGS: Denies o HEALTH AND MEDICAL CONCERNS: Cataract. Heart attack 12 years ago, led to weight gain. Went as high as 330, goal 200. Currently 275 lbs. Diabetes - has brought A1C down. o MOOD: Frustrated, depressed, angry. Frustration vs anger - swearing is the difference . Gets very quiet, shuts down, avoids others. States he is currently getting along with people. Ago APPETITE: Has gone down. Enjoys food. Eats at irregular hours. -Peanut butter toast and coffee -Dinner - restaurant leftovers, or eggs, salad, chicken tenders, deli meat and cheese. Stopped buying ice cream. More protein, fewer carbs. o SLEEP: Worked second shift for [employer] for many years 4pm-12am. to bed 11pm, falls asleep between 3-6am. Wakes 2x during night, back to sleep, sometimes does not wake until noon. Sometimes does not sleep for 2 days. 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 Stopped using it. Uses Z-Quil on occasion. o PAIN (0-10) Pain everywhere - back. Can't wear flop-flops anymore, cannot curl toes. o PHYSICAL ACTIVITY: Less active since heart attack. Less energy. Used to work out at [employer], walking. Would like to be more active again. Has a bike and local path. Weather is big factor. 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 Helps two friends who are disabled. o WORK: Retired -laid off in 2016, worked a couple of jobs after that. A big loss. Misses the people at work. 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 INTERVENTION: Assessed presenting symptoms and concerns and impact on psychosocial functioning Assessed suicide and homicide risk - Denies SI/HI Advised about treatment options -[place] is agreeable to [facility] follow-up. Elicited 's goals for change: - I want to win the lottery ...fantasizes about it a lot, buying an RV and traveling, bringing friends on vacation. MEANING AND PURPOSE: Singing and helping friends. DIAGNOSTIC IMPRESSIONS/PLAN: [place] is a 68-year-old single man referred by clinical pharmacist to [facility] psychologist for anger, depression and insomnia. Based on initial assessment, the [place] is coping with mild symptoms of depression and anxiety with mild interference in psychosocial functioning at this time. He is agreeable to [facility] follow-up visit, at which time we will clarify treatment goals. No immediate risk concerns. LETHALITY Suicidal or homicidal ideation: No Suicidal or homicidal plans: No Suicidal or homicidal intention: No RISK LEVEL IMPRESSION: [place] presents at low risk of harm to self or others at this time. INTERDICIPLINARY TREATMENT PLANNING INVOLVING: PACT FOLLOW-UP: Return to [facility] in 3 weeks, f2f. PCP PROVIDED WITH FEEDBACK: View Augie /lynnette/ SAGAR LAZARO PSYD CLINICAL PSYCHOLOGIST Signed: 11/04/2023 13:48 SAGAR LAZARO
--- OUTSIDE RECORDS SUMMARY | 2024-06-05 08:37 | XMS_ITS ---
Author Name [facility] [place] Organization [facility] [place] Address [address] [place] [address] Care Team Providers Care Back Office Medical Assistant Name Role Phone JORDY PONCE Primary Care [...] Name Patient's Relationship to Policy [facility] ([facility]) MEDICARE ADVANTAGE [facility] (WNR) May 30, 2023 [id number] 62 AG CARPENTER PATIENT MEDICAID MEDICAID [facility] May 30, 2017 MEDICAI D [id number] AG CARPENTER PATIENT Selected Encounter This section includes the information on record at [place] for the Encounter. Date/Time Encounter Type Encounter Description Reason Pro vider Source Nov 10, 2023 12:00 AM Outpatient Encounter COMMUNITY CARE CONSULT IHE Encounter [...] 20 appointments. The data comes from all [place] treatment facilities. Appointment Date/Time Appointment Type Appointme nt Facility Name Nov 15, 2023 01:00 PM AMBULATORY - MEDICINE [facility] Jan 11, 2024 12:30 PM AMBULATORY - MEDICINE [facility] Feb 29, 2024 01:00 PM AMBULATORY - PSYCHIATRY [facility] Advance Directives: All historical and current Section Date Range: From patient's date of to the date document was created. This section includes ALL of a patient's completed or amended [place] Advance and Rescinded Directives. The entries below indicate that a directive exists for the patient, but an actual copy is not included with this document. The data comes from all [place] facilities. Date Advance Directives Provider Source Jun 15, 2018 ADVANCE DIRECTIVE ROYA ARCE [facility] Encounter Notes: All associated encounter notes This section contains the clinical notes associated to the Encounter. Date/Time Encounter Note(s) Provider Source Nov 10, 2023 12:00 AM NONVA CONSULT: LOCAL TITLE: COMMUNITY CARE-CONSULT RESULT NOTE STANDARD TITLE: NONVA CONSULT DATE OF NOTE: NOV 10, 2023 ENTRY DATE: MAR 07, 2024@11:59:32 AUTHOR: FREDERICK MURILLO EXP COSIGNER: URGENCY: STATUS: COMPLETED VistA Imaging - Scanned Document SCANNED DOCUMENT SIGNATURE NOT REQUIRED Electronically Filed: 03/07/2024 by: FREDERICK MURILLO TRACK PATROL FREDERICK MURILLO [facility]
--- OUTSIDE RECORDS SUMMARY | 2024-06-05 08:37 | XMS_ITS | Encounter Summary ---
Author Name [facility] [place] Address [address] [place] [address] Care Team Providers Care Trade Analyst Name Role Phone JORDY PONCE Primary Care [...] Name Patient's Relationship to Policy Workman AARP [facility] (WNR) MEDICARE ADVANTAGE [facility] (WNR) May 30, 2023 [id number] AG CARPENTER PATIENT MEDICAID MEDICAID [facility] May 30, 2017 MEDICAI D [id number] AG CARPENTER PATIENT Selected Encounter This section includes the information on record at [place] for the Encounter. Date/Time Encounter Type Encounter Description Reason Provider Source Sep 22, 2023 12:14 PM QNHP OL DIG ASSMT&MGMT 5-10 CLINICAL PHARMACY ICD-10-CM I51.9 Heart disease, unspecified GDULA,ARYA A IHE Encounter Template Text not used by VA Assessments - Encounter Diagnoses This section includes the primary and secondary diagnoses documented for the Encounter. Date/Time Primary/Secondary Diagnosis Diagnosis Name Provider Source Sep 22, 2023 12:20 PM PRIMARY Heart disease, unspecified [facility] Plan of Treatment: Future Appointments (+ 6 months) and Future Tests (+/- 45 days) The Plan of Treatment section includes future care activities for the [place] [facility] [place] [facility]. This section includes future appointments and future orders which are active, pending or scheduled. Future Appointments This section includes appointments that were scheduled to occur 6 months from the date of the Encounter, up to a maximum of 20 appointments. The data comes from all [facility]. Appointment Date/Time Appointment Type Appointme nt Facility Name October 17, 2023 01:00 PM AMBULATORY - PSYCHIATRY [facility] Nov 08, 2023 02:30 PM [facility] Nov 09, 2023 01:00 PM AMBULATORY - PSYCHIATRY [facility] Nov 10, 2023 01:00 PM AMBULATORY MEDICINE [facility] Nov 15, 2023 01:00 PM [facility] Jan 11, 2024 12:30 PM [facility] Feb 29, 2024 01:00 PM AMBULATORY - PSYCHIATRY [facility] Advance Directives: All historical and current Section Date Range: From patient's date of to the date document was created. This section includes ALL of a patient's completed or amended [place] Advance and Rescinded Directives. The entries below indicate that a directive exists for the patient, but an actual copy is not included with this document. The data comes from all [facility]. Date Advance Directives Provider Source Jun 15, 2018 ADVANCE DIRECTIVE ROYA ARCE [facility] Encounter Notes: All associated encounter notes This section contains the clinical notes associated to the Encounter. Date/Time Encounter Note(s) Provider Source Sep 22, 2023 12:14 PM MEDICATION MGT CON SULT: LOCAL TITLE: CONSULT REPORT/NON FORMULARY PADR STANDARD TITLE: MEDICATION MGT CONSULT DATE OF NOTE: SEP 22, 2023@12:14 ENTRY DATE: SEP 22, 2023@12:15:03 AUTHOR: ARYA LOVELL EXP COSIGNER: URGENCY: STATUS: COMPLETED The medical record has been reviewed with regard to this restricted drug request. Medication requested: ICOSAPENT ETHYL 1GM CAP Medication indication: CAD Medical history relevant to this request: SERUM Jul 082023 12:04 Units Ranges -- CHOL 178 mg/dL <7 - 199 TRIG 320 H mg/dL 0 - 150 HDL 34 L mg/dL 40 - 60 LDL-d 106 mg/dL <10 - 120 LDL Reflex to dLDL mg/dL0 - 129 BLOOD Jul 08 Apr 07 Reference 2023 2022 12:04 13:21 Units Ranges -- HgbA1c Hgb-A1c % 4.4 - 6.1 Hgb-A1c % 3 - 6.1 HGB A1C % 4.4 - 6.4 Hgb-A1C % 3.4 - 6.1 HGB-A1c 6.5 H 6.4 H % 4 - 5.6 SERUM Jul 08 Apr 07 Reference 2023 2022 12:04 13:21 Units Ranges -- GLUCOSE 131 H 159 H mg/dL 65 - 100 BUN 26 H 15 mg/dL 7 - 25 CREATININE 1.09 1.03 mg/dL .5 - 1.4 eGFR(IDMS) Ref: >=60 CREAT mg/dL .5 - 1.5 eGFR See Eval Ref: See Eval Sodium 136 137 mmol/L 135 - 145 K+/Pot 4.7 4.6 mmol/L 3.5 - 5 CL 105 103 mmol/L 100 - 110 CO2 21 23 mEq/L 20 - 30 CA mg/dL 8.5 - 10.2 UricAci mg/dL 3.5 - 7.2 NH3/Amm PO4 mg/dL 2.5 - 5 T. PROT 7.3 g/dL 6 - 8.3 ALBUMIN 3.9 g/dL 3.5 - 5 T BILI 0.5 mg/dL .2 - 1.2 D. BILI mg/dL 0 - .5 AST 28 U/L 5 - 34 ALT 35 U/L <6 - 55 GGT U/L 10 - 65 ALK DANIA 39 L U/L 40 - 150 Exclusion Criteria If the answer to ANY item below is met, then the patient should NOT receive icosapent ethyl. [] Contraindication: History of hypersensitivity to icosapent ethyl or to any of its components1 [] Not on a statin or unable to tolerate statins [] Severe NYHA Class IV congestive heart failure [] Severe renal insufficiency (e.g., creatinine clearance <30 mL/min) or on dialysis [] Severe comorbid non-cardiovascular condition(s) expected to limit life expectancy to <2 years [] Uncontrolled or poorly controlled diabetes (e.g., HGB A1C > 10 %) [x]> 45 years of age with established cardiovascular disease* [x] Receiving a moderate to high dose statin (or maximally tolerated statin) and LDL is between 41 mg/dL and 100 mg/dL. Statin doses should be maximized (as tolerated) prior to adding icosapent ethyl. [x] Fasting triglyceride level of > 150 mg/dL The request is approved - A documented therapeutic failure of the preferred formulary alternative(s) exists Time spent: 5 mins /lynnette/ ARYA LOVELL PHARMD,BCPS CLINICAL PHARMACY PRACTITIONER Signed: 09/22/2023 12:20 ARYA LOVELL [facility]
--- OUTSIDE RECORDS SUMMARY | 2024-06-05 08:37 | XMS_ITS | Encounter Summary ---
Author Name [facility] Organization [facility] Address [address] [place] [address] Care Team Providers Care Architect Internship Name Role Phone JORDY PONCE Primary Care [...] Workman's Name Patient's Relationship to Policy Workman [facility] (WNR) MEDICARE ADVANTAGE [facility] (WNR) May 30, 2023 [id number] AG CARPENTER PATIENT MEDICAID MEDICAID [facility] May 30, 2017 MEDICAI D [id number] AG CARPENTER PATIENT Selected Encounter This section includes the information on record at MD for the Encounter. Date/Time Encounter Type Encounter Description Reason Provider Source Jul 13, 2023 01:30 PM OFFICE O/P EST MOD 30 MIN PRIMARY CARE/MEDICINE ICD-10-CM I10 Essential (primary) hypertension JORDY PONCE Encounter Template Text not used by [facility] Assessments - Encounter Diagnoses This section includes the primary and secondary diagnoses documented for the Encounter. Date/Time Primary/Secondary Diagnosis Diagnosis Name Provider Source Jul 13, 2023 02:13 PM PRIMARY Essential (primary) hypertension JORDY PONCE Jul 13, 2023 02:13 PM SECONDARY Heart disease, unspecified JORDY PONCE [place] Jul 13, 2023 02:13 PM SECONDARY Hyperlipidemia, unspecified JORDY PONCE [place] Jul 13, 2023 02:13 PM SECONDARY Obesity, unspecified JORDY PONCE [place] Jul 13, 2023 02:13 PM SECONDARY Type 2 diabetes mellitus without complications JORDY PONCE [place] Plan of Treatment: Future Appointments (+ 6 months) and Future Tests (+/- 45 days) The Plan of Treatment section includes future care activities for the [facility] This section includes future appointments and future orders which are active, pending or scheduled. Future Appointments This section includes appointments that were scheduled to occur 6 months from the date of the Encounter, up to a maximum of 20 appointments. The data comes from all MD treatment facilities. Appointment Date/Time Appointment Type Appointme nt Facility Name Aug 10, 2023 01:00 PM AMBULATORY - MEDICINE [facility] Sep 21, 2023 12:30 PM AMBULATORY - MEDICINE [facility] [place] [facility] October 17, 2023 01:00 PM AMBULATORY - PSYCHIATRY [facility] Nov 08, 2023 02:30 PM AMBULATORY - MEDICINE [facility] [place] Nov 09, 2023 01:00 PM AMBULATORY - PSYCHIATRY [facility] Nov 10, 2023 01:00 PM AMBULATORY - MEDICINE [facility] [place] Nov 15, 2023 01:00 PM AMBULATORY - MEDICINE [facility] [place] Jan 11, 2024 12:30 PM AMBULATORY - MEDICINE [facility] Lab Results: +/- 30 days of the encounter This section includes the Chemistry and Hematology Lab Results on record with MD for the patient. Radiology Reports and Pathology Reports are provided separately, in subsequent sections. Lab Results This section contains the Chemistry/Hematology Results that were resulted 30 days before or 30 daysafter the date of the Encounter. Date/Time Source Result Type Result - Unit Interpretation Reference Range Comment Jul 12, 2023 02:27 PM [facility] MICROALBUMIN CREATININE RATIO PANEL Specimen Type: URINE No comment entered. Ordering Provider: JORDY PONCE Report Released Date/Time: Jul 13, 2022 05:58 AM Reporting Lab: [address] [address] Performing Lab: [address] [address] MICROALBUMIN/C REATININE RATIO 64.7 mg/g H 0-29.9 MICROALBUMIN,Q UANTITATIVE 3.8 mg/dL RR UNAVAIL CREATININE URINE 58.70 mg/dL Jul 08, 2023 12:04 PM [facility] LIPID PANEL FASTING Specimen Type: SERUM No comment entered. Ordering Provider: JORDY PONCE Report Released Date/Time: Jul 13, 2022 05:58 AM Reporting Lab: [address] [phone] Performing Lab: [address] [address] CHOLESTEROL 178 mg/dL TRIGLYCERIDE 320 mg/dL H 0-150 LDL calculated Reflex to dLD L mg/dL 0-129 CHOL/HDL 5.2 HDL CHOLESTEROL 34 mg/dL L 40-60 LDL DIRECT 106 mg/dL Jul 08, 2023 12:04 PM [facility] LIVER FUNCTION Specimen Type: SERUM No comment entered. Ordering Provider: JORDY PONCE Report Released Date/Time: Jul 13, 2022 05:58 AM Reporting Lab: [address] [address] Performing Lab: [address] [address] PROTEIN,TOTAL 7.3 g/dL 6.0-8.3 ALBUMIN 3.9 g/dL 3.5-5.0 ALKALINE PHOSPHATASE 39 U/L L 40-150 AST 28 U/L 5-34 ALT 35 U/L BILIRUBIN, TOTAL 0.5 mg/dL 0.2-1.2 Jul 08, 2023 12:04 PM [facility] HEMOGLOBIN A1C PANEL Specimen Type: BLOOD Comment: Values obtained from A1C measurements can vary. For atypical A1C assays, a reported value of 7.0 could actually be between 6.72 and 7.28 if measured by a reference method. A reported value of 9.0 could actually be between 8.73 and 9.27. Ref: http://www.ngs p.org/CAPdata. asp Ordering Provider: JORDY PONCE Report Released Date/Time: Jul 13, 2022 05:58 AM Reporting Lab: [address] [address] Performing Lab: [address] [address] HEMOGLOBIN A1C 6.5 H 4.0-5.6 Jul 08, 2023 12:04 PM [facility] BASIC METABOLIC PANEL (fasting) Specimen Type: SERUM No comment entered. Ordering Provider: JORDY PONCE Report Released Date/Time: Jul 13, 2022 05:58 AM Reporting Lab: [address] [address] Performing Lab: [address] [address] UREA NITROGEN 26 mg/dL H 7-25 GLUCOSE 131 mg/dL H 65-100 SODIUM 136 mmol/L 135-145 POTASSIUM 4.7 mmol/L 3.5-5.0 CHLORIDE 105 mmol/L 100-110 CO2 21 meq/L 20-30 CREATININE, Serum 1.09 mg/dL 0.50-1.40 eGFR(CKD-EPI 2020) 75 mL/min >60 Jul 08, 2023 12:04 PM [facility] CBC Specimen Type: BLOOD No comment entered. Ordering Provider: JORDY PONCE Report Released Date/Time: Jul 13, 2022 05:58 AM Reporting Lab: [address] [address] Performing Lab: [address] [address] WBC 8.06 10*3/uL 4.50-11.00 RBC 5.82 10*6/uL H 4.23-5.66 HGB 14.6 g/dL 12.8-17 HCT 46.1 39.2-50.4 MCV 79.2 fL L 82-99 MCHC 31.7 g/dL 30.8-35.1 PLT 192 10*3/uL 140-360 RDW-CV 14.3 12.0-16.0 MCH 25.1 pg L 26.2-32.6 Social History: Smoking Status (Most current) and Tobacco Use (All prior to encounter date) This section includes the most current, and the historical, smoking and tobacco- related health factors from the MD facility where the Encounter took place. Current Smoking Status This section includes the most current smoking, or tobacco-related health factor, from the MD facility where the Encounter took place. Date/Time Current Smoking Status Comment Facil ity Jul 13, 2023 12:30 PM VA-TOBACCO FORMER USER [place] Tobacco Use History This section includes a history of the smoking, or tobacco-related health factors, that were collected on or before the date of the Encounter. The data comes from the MD facility where the Encounter took place. Date/Time Smoking Status/Tobacco Use Comment F acility Jul 13, 2023 12:30 PM VA-TOBACCO QUIT 5 TO < 15 YRS [place] Jul 13, 2022 01:30 PM VA-TOBACCO FORMER USER [place] Jul 13, 2022 01:30 PM VA-TOBACCO QUIT 5 TO < 15 YRS [place] Jun 24, 2021 02:00 PM VA-TOBACCO FORMER USER [place] Jun 24, 2021 02:00 PM VA-TOBACCO QUIT 15 YRS OR MORE [place] October 25, 2018 02:45 PM VA-TOBACCO FORMER USER [place] October 25, 2018 02:45 PM VA-TOBACCO QUIT 5 TO < 15 YRS [place] October 10, 2017 09:12 AM QUIT TOBACCO USE > 7 YEARS AGO [place] Advance Directives: All historical and current Section Date Range: From patient's date of to the date document was created. This section includes ALL of a patient's completed or amended MD Advance and Rescinded Directives. The entries below indicate that a directive exists for the patient, but an actual copy is not included with this document. The data comes from all [facility]. Date Advance Directives Provider Source Jun 15, 2018 ADVANCE DIRECTIVE ROYA ARCE [facility] Encounter Notes: All associated encounter notes This section contains the clinical notes associated to the Encounter. Date/Time Encounter Note(s) Provider Source Jul 13, 2023 02:00 PM PREVENTIVE MEDICIN E NURSING NOTE: LOCAL TITLE: CLINICAL REMINDERS/NURSING STANDARD TITLE: PREVENTIVE MEDICINE NURSING NOTE DATE OF NOTE: JUL 13, 2023@14:00 ENTRY DATE: JUL 13, 2023@14:00:50 AUTHOR: KALYAN BROWN EXP COSIGNER: URGENCY: STATUS: COMPLETED Tobacco Pack Year History: Patient used cigarettes in the past, but quit and does not currently use them: Quit smoking LESS THAN 15 years. Year the patient quit smoking: Date: 2022 ? Exact date is unknown How many years has the patient smoked? # of years 8 Average number of packs/day over the entire time patient smoked: Packs/day 1 BMI>30/>24.99 High Risk: Patient declines to discuss weight management. Patient declined weight discussion. Discussed revisiting at a future visit. Pneumococcal Conjugate Vaccine (PCV15/PCV20): Refuses PCV vaccine Immunization: PNEUMOCOCCAL CONJUGATE, UNSPECIFIED FORMULATION Refusal Reason: PATIENT DECISION Patient refuses all immunization(s) in the PneumoPCV group Date Documented: 07/13/23 14:02 Herpes Zoster (Shingles) Vaccine: The patient declines to receive the recommended dose of zoster (shingles) vaccine. Immunization: ZOSTER RECOMBINANT Refusal Reason: PATIENT DECISION Patient refuses all immunization(s) in the ZOSTER group Date Documented: 07/13/23 14:02 /lynnette/ KALYAN BROWN LPN PACT 10 Signed: 07/13/2023 14:03 KALYAN BROWN [place] Jul 13, 2023 06:55 AM PHYSICIAN NOTE: LOCAL TITLE: MD NOTE STANDARD TITLE: PHYSICIAN NOTE DATE OF NOTE: JUL 13, 2023@06:55 ENTRY DATE: JUL 13, 2023@06:55:56 AUTHOR: JORDY PONCE EXP COSIGNER: URGENCY: STATUS: COMPLETED HISTORY OF PRESENT ILLNESS: SAMEER CARPENTER, is a 67 yo MALE [place], who presents at the [facility] for his annual visit. He maintains a nonVA PCP: Dr Medina and a nonVA Veterinary Technician: Dr Beal. utilizes [facility] the [facility]. Active problems - Computerized Problem List is the source for the followin. Obesity 2. Obstructive sleep apnea syndrome 3. HTN - Hypertension 4. Hyperlipidemia 5. Diabetes Mellitus Type 2 6. Coronary artery disease 7. NON VA PCP 8. Colonoscopy Screening 9. History of IN Active and Recently Outpatient Medications (including Supplies): Active Outpatient Medications Status ======= 1) ACCU-CHEK GUIDE (GLUCOSE) TEST STRIP USE 1 STRIP TO ACTIVE TEST BLOOD SUGARS TWICE DAILY 2) ATORVASTATIN CALCIUM 40MG TAB TAKE ONE TABLET BY ACTIVE MOUTH ONCE DAILY FOR HIGH CHOLESTEROL 3) EMPAGLIFLOZIN 25/METFORM 1000MG 24HR TAB TAKE 1 ACTIVE TABLET BY MOUTH ONCE DAILY FOR TYPE 2 DIABETES 4) FENOFIBRATE 145MG TAB TAKE ONE TABLET BY MOUTH ONCE ACTIVE DAILY FOR HIGH CHOLESTEROL REPLACES GEMFIBROZIL 5) GLIPIZIDE 5MG TAB TAKE ONE TABLET BY MOUTH TWICE ACTIVE DAILY BEFORE A MEAL FOR TYPE 2 DIABETES MELLITUS 6) GLUCOSE SENSOR FREESTYLE VLADISLAV 3 USE 1 SENSOR ACTIVE DIRECTED EVERY 14 DAYS 7) LANCET,SOFTCLIX USE 1 LANCET TOPICALLY TWICE DAILY TO ACTIVE TEST BLOOD SUGAR 8) LISINOPRIL 5MG TAB TAKE ONE TABLET BY MOUTH ONCE ACTIVE DAILY TO CONTROL BLOOD PRESSURE (FROM DR FABBY MEDINA) 9) METOPROLOL SUCCINATE 100MG SA TAB TAKE ONE TABLET BY ACTIVE MOUTH ONCE DAILY FOR CHRONIC HEART FAILURE FOR BLOOD PRESSURE/HEART Inactive Outpatient Medications Status ======= 1) MEDICATION DISPOSAL PATIENT PKT USE 1 ENVELOPE DIRECTED ONE TIME TO DISPOSE OF UNUSED MEDICATIONS Active Non-VA Medications Status ======= 1) Non-VA ASPIRIN 81MG EC TAB 81MG [...] TAB 75MG BY MOUTH ONCE ACTIVE DAILY 16 Total Medications ALLERGIES: ========= Patient has answered NK[facility] LAB HISTORY: CHEM 7 TREND Collection DT Spec GLUCOSE BUN CREATIN Sodium K+/Pot CL CO2 07/08/2023 12:04 SERUM 131 H 26 H 1.09 136 4.7 105 21 04/07/2023 13:21 SERUM 159 H 15 1.03 137 4.6 103 23 12/17/2022 11:22 SERUM 102 H 20 1.08 138 4.8 103 23 09/23/2022 10:51 SERUM 84 14 0.98 138 4.4 103 25 07/07/2022 10:56 SERUM 215 H 15 1.01 135 5.1 H 99 L 27 CBC TREND Collection DT Spec WBC RBC [...] 15.1 47.3 77.9 L 24.9 L 191 HEMOGLOBIN A1C TREND Collection DT Spec HGBA1c 07/08/2023 12:04 BLOOD 6.5 H 04/07/2023 13:21 BLOOD 6.4 H 12/17/2022 11:22 BLOOD 6.8 H 09/23/2022 10:51 BLOOD 7.4 H 07/07/2022 10:56 BLOOD 9.7 H LIPID PANEL TREND Collection DT Spec CHOL [...] 5.4 83 Reflex to dLDL 493 H LIVER PANEL TREND Collection DT Spec AST ALT T BILI ALK DANIA T. PROT ALBUMIN 07/08/2023 12:04 SERUM 28 35 0.5 39 L 7.3 3.9 07/07/2022 10:56 SERUM 26 30 0.5 48 7.4 3.7 05/27/2021 09:58 SERUM 27 32 0.5 48 7.3 3.6 06/11/2019 11:20 SERUM 23 34 0.5 51 7.4 3.9 12/05/2018 13:22 SERUM 39 H 46 0.8 57 7.9 4.1 HISTORY: PERIOD OF SERVICE - [place] [facility] [employer] FROM Jun TO Mar COMBAT SERVICE INDICATED: No VITAL SIGNS: Blood Pressure 130/76 (07/13/2023 14:00) Pulse 80 (07/13/2023 13:47) Respiration 16 (07/13/2022 13:34) Pulse Oximetry 96% (07/13/2023 13:47) Temperature 98.6 F [37.0 C] (07/13/2022 13:34) Pain 0 (07/13/2022 13:34) Height 68 in [172.7 cm] (07/13/2022 13:34) Weight 275.6 lb [125.01 kg] (07/13/2022 13:34) BMI BMI: 42.0 REVIEW OF SYSTEMS: CARDIOVASCULAR: No chest pain RESPIRATORY: No SOB, no wheezing GASTROINTESTINAL: No abd pain, no N/V/D GENITOURINARY: No dysuria, no hematuria MUSCULOSKELETAL: No joint pain, no joint swelling PSYCHIATRIC: No anxiety, no trouble sleeping, no depression NEUROLOGIC: No H/A, no numbness, no weakness, no tingling EXAMINATION: GENERAL: WD/WN , pleasant & in NAD HEENT: Moist mucosa NECK: Supple, no carotid bruits HEART: RRR, S1-S2, no murmurs LUNGS: CTA B/L, no wheezes ABDOMEN: Soft, NT/ND, + BS x 4 Quads PERIPH PULSES: 2+ B/L EXTREMITIES: FROM x 4, no edema NEUROLOGIC: AAO x3, no focal neurological deficits PSYCHIATRIC: Good eye contact, affect normal ASSESSMENT/PLAN: 1. CAD s/p IN 07/13/2010 (totally occluded RCA): managed by cardiology/Dr Beal annually, on nitroglycerin 0.4mg prn 2. Hypertension: well controlled on lisinopril 5mg/day and metoprolol succinate 100mg/QAM and 25mg/QHS 3. Mixed Hyperlipidemia: well controlled on atorvastatin 80mg/QHS and fenofibrate 145mg/day Collection DT Spec CHOL HDL CHO/HDL LDL-d LDL-c TRIG 07/08/2023 12:04 SERUM 178 34 L 5.2 106 320 H 4. DM II: well controlled on empagliflozin/metformin 25mg/1000mg BID and glipizide 5mg BID, and basaglar qwikpen (Glargine) 30U/QHS, managed by MD DM pharm FBS 131 - A1c 6.5% Eye exam: 11/04/22 - [facility] neg DR Podiatry exam: 2022 - nonVA PCP - pos PVD Microalbuminuria: 07/08/23 - mildly pos 5. Sleep Apnea: compliant with CPAP 6. Obesity: BMI ~42, counseled on weight loss 7. Depression and Anxiety: on medication >12 yrs now, stable on venlafaxine 75mg/day 8. Colonoscopy Screening: due 06/06/24 - Dr Arriaza FOLLOW UP: 1 year - Annual - FBW prior ========= UPCOMING APPOINTMENTS: 07/13/2023 12:30 CWM/SO/PHARM PACT 3 11/08/2023 14:30 CWM/NO/OPTOMETRY/MERHAR No barriers; Patient understands and agrees to current treatment plan. If pt has any questions, concerns, or changes in current health status he/she will call or come in to the [facility]. Medication Reconciliation: Outpatient: Has the patient been taking medications as documented in the EMLR? YES: The patient has been taking medications as documented in the EMLR. Essential Medication List for Review used to complete this medication reconciliation. INCLUDED IN THIS LIST: Alphabetical list of active outpatient prescriptions dispensed from this VA (local) and dispensed from another VA or DoD facility (remote) as well as inpatient orders (local, pending and active), local clinic medications, locally documented non-VA medications, and local prescriptions that have or been discontinued in the past 90 days. - All changes in medications, including all non-VA/Herbal/OTC medications were entered into CPRS. - If there were any medications the patient should no longer take, they were discontinued. - The patient/caregiver was instructed to update this list, discard old lists, and take this list to the next appointment, whether with a VA or non-VA provider. JLV Link Data on this list may not be complete. Please check JLV. Allergies/ADRs (Tool #5) FACILITY ALLERGY/ADR -------- No Remote Allergy/ADR Data available for this patient [facility] [place] [facility] No Known Allergies Med Recon NoGlossary (Tool #1) INCLUDED IN THIS LIST: Alphabetical list of active outpatient prescriptions dispensed from this MD (local) and dispensed from another VA or DoD facility (remote) as well as inpatient orders (local pending and active), local clinic medications, locally documented non-VA medications, and local prescriptions that have or been discontinued in the past 90 days. Non-VA Meds Last Documented On: Jul 13, 2023 NOTE The display of VA prescriptions dispensed from another VA or DoD facility (remote) is limited to active outpatient prescription entries matched to National Drug File at the originating site and may not include some items such as investigational drugs, compounds, etc. NOT INCLUDED IN THIS LIST: Medications self-entered by the patient into personal health records (i.e. [employer]) are NOT included in this list. Non-VA medications documented outside this MD, remote inpatient orders (regardless of status) and remote clinic medications are NOT included in this list. The patient and provider must always discuss medications the patient is taking, regardless of where the medication was dispensed or obtained. ------ Non-VA ASPIRIN 81MG EC TAB TAKE ONE TABLET BY MOUTH DAILY Non-VA medication not recommended by VA provider. OUTPT ATORVASTATIN CALCIUM 40MG TAB (Status = Active) TAKE ONE TABLET BY MOUTH ONCE DAILY FOR HIGH CHOLESTEROL Rx# [id number] Last Released: 07/08/23 Qty/Days Supply: Rx Expiration Date: 04/12/24 Refills Remainin Indication: FOR HIGH CHOLESTEROL Non-VA DULAGLUTIDE 0.75MG/0.5ML INJ PEN INJECT 0.75MG SUBCUTANEOUSLY ONCE A WEEK Medication prescribed by Non-VA provider. by Dr. Medina Indication: FOR TYPE 2 DIABETES MELLITUS OUTPT EMPAGLIFLOZIN 25/METFORM 1000MG 24HR TAB (Status = Active) TAKE 1 TABLET BY MOUTH ONCE DAILY FOR TYPE 2 DIABETES Rx# [id number] Last Released: 07/12/23 Qty/Days Supply: Rx Expiration Date: 05/31/24 Refills Remainin Indication: FOR TYPE 2 DIABETES OUTPT EMPAGLIFLOZIN 25MG TAB (Status = Discontinued) TAKE ONE TABLET BY MOUTH ONCE DAILY Rx# [id number] Last Released: 03/17/23 Qty/Days Supply: Rx Expiration Date: 11/11/23 Refills Remainin Indication: FOR TYPE 2 DIABETES MELLITUS OUTPT FENOFIBRATE 145MG TAB (Status = Active) TAKE ONE TABLET BY MOUTH ONCE DAILY FOR HIGH CHOLESTEROL REPLACES GEMFIBROZIL Rx# [id number] Last Released: 05/19/23 Qty/Days Supply: 90/90 Rx Expiration Date: 02/16/24 Refills Remainin Indication: FOR HIGH CHOLESTEROL OUTPT GLIPIZIDE 10MG TAB (Status = Discontinued) TAKE ONE TABLET BY MOUTH TWICE DAILY Rx# [id number] Last Released: 04/25/23 Qty/Days Supply: 180/90 Rx Expiration Date: 02/16/24 Refills Remainin OUTPT GLIPIZIDE 5MG TAB (Status = Active) TAKE ONE TABLET BY MOUTH TWICE DAILY BEFORE A MEAL FOR TYPE 2 DIABETES MELLITUS Rx# [id number] Last Released: 05/31/23 Qty/Days Supply: 120/60 Rx Expiration Date: 05/31/24 Refills Remainin Indication: FOR TYPE 2 DIABETES MELLITUS Non-VA INSULIN,GLARGINE-YFGN 100UNIT/ML PEN 3ML INJECT 25 UNITS SUBCUTANEOUSLY ONCE DAILY Medication prescribed by Non-VA provider. actually Lantus OUTPT LISINOPRIL 5MG TAB (Status = Active) TAKE ONE TABLET BY MOUTH ONCE DAILY TO CONTROL BLOOD PRESSURE (FROM DR FABBY MEDINA) Rx# [id number] Last Released: 07/08/23 Qty/Days Supply: 9090 Rx Expiration Date: 02/16/24 Refills Remainin OUTPT METFORMIN HCL 500MG 24HR SA TAB (Status = Discontinued) TAKE ONE TABLET BY MOUTH EVERY MORNING AND TAKE ONE TABLET EVERY EVENING Rx# [id number] Last Released: 08/20/22 Qty/Days Supply: 180/90 Rx Expiration Date: 08/19/23 Refills Remainin Indication: FOR TYPE 2 DIABETES MELLITUS OUTPT METOPROLOL SUCCINATE 100MG SA TAB (Status = Active) TAKE ONE TABLET BY MOUTH ONCE DAILY FOR CHRONIC HEART FAILURE FOR BLOOD PRESSURE/HEART Rx# [id number] Last Released: 05/31/23 Qty/Days Supply: 9090 Rx Expiration Date: 01/01/24 Refills Remainin Indication: FOR CHRONIC HEART FAILURE Non-VA METOPROLOL SUCCINATE 25MG SA TAB TAKE ONE TABLET BY MOUTH AT BEDTIME Non-VA medication not recommended by VA provider. Medication prescribed by Non-VA provider. Non-VA MULTIVITAMIN/MINERALS CAP/TAB TAKE ONE TABLET BY MOUTH ONCE DAILY Non-VA medication not recommended by VA provider. Indication: UNKNOWN Non-VA VENLAFAXINE HCL 75MG TAB TAKE ONE TABLET BY MOUTH ONCE DAILY Medication prescribed by Non-VA provider. ------ SUPPLIES ------ OUTPT ACCU-CHEK GUIDE (GLUCOSE) TEST STRIP (Status = Active) USE 1 STRIP TO TEST BLOOD SUGARS TWICE DAILY Rx# [id number] Last Released: 04/07/23 Qty/Days Supply: 100/50 Rx Expiration Date: 07/22/23 Refills Remainin OUTPT GLUCOSE SENSOR FREESTYLE VLADISLAV 2 (Status = Discontinued) USE 1 SENSOR DIRECTED EVERY 14 DAYS Rx# [id number] Last Released: 05/19/23 Qty/Days Supply: 07/27 Rx Expiration Date: 04/13/24 Refills Remainin OUTPT GLUCOSE SENSOR FREESTYLE VLADISLAV 3 (Status = Active) USE 1 SENSOR DIRECTED EVERY 14 DAYS Rx# [id number] Last Released: 07/08/23 Qty/Days Supply: 07/27 Rx Expiration Date: 05/31/24 Refills Remainin OUTPT LANCET,SOFTCLIX (Status = Active) USE 1 LANCET TOPICALLY TWICE DAILY TO TEST BLOOD SUGAR Rx# [id number] Last Released: 04/07/23 Qty/Days Supply: 100/50 Rx Expiration Date: 07/22/23 Refills Remainin OUTPT MEDICATION DISPOSAL PATIENT PKT (Status = ) USE 1 ENVELOPE DIRECTED ONE TIME TO DISPOSE OF UNUSED MEDICATIONS Rx# [id number] Last Released: 05/31/23 Qty/Days Supply: 06/28 Rx Expiration Date: 06/30/23 Refills Remainin Screen for Abd Aortic Aneurysm: The patient declines to undergo ultrasound to screen for possible abdominal aortic aneurysm. Comment: performed by outside provider /lynnette/ JORDY PONCE MD Primary Care Physician Signed: 07/13/2023 14:37 JORDY PONCE
--- OUTSIDE RECORDS SUMMARY | 2024-06-05 08:37 | XMS_ITS ---
Author Name [facility] [place] [facility] [place] [facility] [place] Address [address] [place] [address] Care Team Providers Care Technical Professional Name Role Phone JORDY PONCE Primary Care Provider Unavaildenzel e Insurance Providers: All historical and current [...] Workman's Name Patient's Relationship to Policy [facility] (WNR) MEDICARE ADVANTAGE [facility] (WNR) May 30, 2023 [id number] AG CARPENTER PATIENT MEDICAID MEDICAID [facility] May 30, 2017 MEDICAI D [id number] AG CARPENTER PATIENT Selected Encounter This section includes the information on record at [place] for the Encounter. Date/Time Encounter Type Encounter Description Reason Pro vider Source Nov 09, 2023 10:24 AM Outpatient Encounter [facility] INDIV E Encounter Template Text not used by VA [...] 20 appointments. The data comes from all [place] treatment facilities. Appointment Date/Time Appointment Type Appointme nt Facility Name Nov 10, 2023 01:00 PM AM[place]ULATORY [place]ICINE [place] [facility] [place] [facility] Nov 15, 2023 01:00 PM AM[place]UL[place]ORY [place] [facility] Jan 11, 2024 12:30 PM AM[place]ULATORY [place]ICINE [place] [facility] [facility] Feb 29, 2024 01:00 PM AMBULATORY - PSYCHIATRY [facility] Advance Directives: All historical and current Section Date Range: From patient's date of to the date document was created. This section includes ALL of a patient's completed or amended [place] Advance and Rescinded Directives. The entries below indicate that a directive exists for the patient, but an actual copy is not included with this document. The data comes from all [facility]. Date Advance Directives Provider Source Jun 15, 2018 ADVANCE DIRECTIVE ROYA ARCE [facility] Encounter Notes: All associated encounter notes This section contains the clinical notes associated to the Encounter. Date/Time Encounter Note(s) Provider Source Nov 09, 2023 10:25 AM MENTAL HEALTH DIAG NOSTIC STUDY NOTE: LOCAL TITLE: MENTAL HEALTH DIAGNOSTIC STUDY STANDARD TITLE: MENTAL HEALTH DIAGNOSTIC STUDY NOTE DATE OF NOTE: NOV 09, 2023@10:25:30 ENTRY DATE: NOV 09, 2023@10:25:30 AUTHOR: SAGAR LAZARO COSIGNER: URGENCY: STATUS: COMPLETED These assessments were completed by SAMEER CARPENTER via provider direct entry on 11/09/2023 10:24:25 AM. PATIENT HEALTH QUESTIONNAIRE-9 (PHQ-9) The patient reported some symptoms of depression; symptoms are not consistent with a major depressive episode. Patient reported being bothered by the following over the last 2 weeks: 1. Little interest or pleasure: Several Days 2. Feeling down, depressed or hopeless: Not at all 3. Trouble sleeping: Nearly every day 4. Tired, low energy: More than half the days 5. Poor appetite, over-eating: Several Days 6. Feelings of failure, guilt: Several Days 7. Trouble concentrating: Not at all 8. Motor retardation, agitation: Not at all 9. Thoughts better off /hurting self: Not at all PHQ-9 total score = 8 1-4 = minimal symptoms 5-9= mild symptoms 10-14= moderate symptoms 15-19= moderately severe symptoms 20-27= severe depressive symptoms The patient stated that the depressive symptoms made it somewhat difficult to work, take care of things at home, or get along with others. GENERAL ANXIETY DISORDER-7 (ROYER-7) Patient reported being bothered by the following over the last two weeks: 1. Feeling nervous, anxious or on edge: Not at all 2. Not being able to stop or control worrying: Not at all 3. Worrying too much about different things: Several days 4. Trouble relaxing: Not at all 5. Feeling restless (hard to sit still): Not at all 6. Becoming easily annoyed or irritable: Several days 7. Afraid as if something awful might happen: More than half the days ROYER-7 total score = 4 0-4=minimal symptoms 5-9=mild symptoms 10-14=moderate symptoms 15-21=severe symptoms The patient stated that the anxiety symptoms made it not at all difficult to work, take care of things at home, or get along with others. /lynnette/ SAGAR LAZARO PSYD CLINICAL PSYCHOLOGIST Signed: 11/09/2023 12:45 SAGAR LAZARO [place]
--- OUTSIDE RECORDS SUMMARY | 2024-06-05 08:37 | XMS_ITS ---
Author Name [facility] [place] Organization [facility] [place] Address [address] [place] [address] Care Team Providers Care Cigar Packer And Shader Name Role Phone JORDY PONCE Primary Care [...] Workman's Name Patient's Relationship to Policy Workman [facility] MCR (WNR) MEDICARE ADVANTAGE [facility] (WNR) May 30, 2023 [id number] 62 AG CARPENTER PATIENT MEDICAID MEDICAID [facility] May 30, 2017 MEDICAI D [id number] AG CRAPENTER PATIENT Selected Encounter This section includes the information on record at [place] for the Encounter. Date/Time Encounter Type Encounter Description Reason Pro vider Source Mar 09, 2024 12:27 PM Outpatient Encounter PRIMARY CARE/MEDICINE [facility] Encounter Template Text not used by [place] Plan of Treatment: Future Appointments (+ 6 [...] 20 appointments. The data comes from all [place] treatment facilities. Appointment Date/Time Appointment Type Appointme nt Facility Name Jul 10, 2024 01:30 PM AM[place]ULATORY - [place]ICINE [place] [facility] [place] [facility] Advance Directives: All historical and current Section Date Range: From patient's date of to the date document was created. This section includes ALL of a patient's completed or amended [place] Advance and Rescinded Directives. The entries below indicate that a directive exists for the patient, but an actual copy is not included with this document. The data comes from all [place] facilities. Date Advance Directives Provider Source Jun 15, 2018 ADVANCE DIRECTIVE ROYA ARCE [facility] Encounter Notes: All associated encounter notes This section contains the clinical notes associated to the Encounter. Date/Time Encounter Note(s) Provider Source Mar 09, 2024 12:39 PM ADDENDUM: LOCAL TITLE: Addendum STANDARD TITLE: ADDENDUM DATE OF NOTE: MAR 09, 2024@12:39:01 ENTRY DATE: MAR 09, 2024@12:39:01 AUTHOR: ANA LAURA GOMEZ EXP COSIGNER: URGENCY: STATUS: COMPLETED Prscriptions placed in provider's box for review. 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 /lynnette/ ANA LAURA ROMAN Signed: 03/09/2024 12:40 Receipt Acknowledged By: 03/13/2024 10:27 /es/ EULALIA BRAXTON RN REGISTERED NURSE 03/13/2024 09:38 /es/ KALYAN BROWN LPN PACArya 10 ====== --- Original Document --- 03/09/24 WALK-IN NOTE PRIMARY CARE (T): <====Click to Start Advanced Medical Support presents to the Primary Care clinic with the following request: [ X ]Medication Renewal/Refill [ ]Consultation with Team RN [ ]Symptoms [ ]Other The states they are: [ ]Waiting [ X ]Not Waiting No Walk in visit scheduled with PACT Nurse [ X ] At this encounter the [employer]'s demographics were verified. [ X ] At this encounter the [employer]'s Insurance information was verified. [ X ] At this encounter the below scheduled visits for the were discussed and appointment reminder card was offered. Future appointments: 07/12/2024 13:00 CWM/SO/PACT 11/12/2024 15:30 CWM/NO/OPTOMETRY/[place] [employer] dropped off four prescriptions from Dr. Skinny Garcia for: metoprolol Atorvastatin Lisinopril Glipizide /es/ ANA LAURA ROMAN Signed: 03/09/2024 12:38 ANA LAURA GOMEZ [place] Mar 09, 2024 12:27 PM PRIMARY CARE NOTE: LOCAL TITLE: WALK-IN NOTE PRIMARY CARE (T) STANDARD TITLE: PRIMARY CARE NOTE DATE OF NOTE: MAR 09, 2024@12:27 ENTRY DATE: MAR 09, 2024@12:27:44 AUTHOR: ANA LAURA GOMEZ EXP COSIGNER: URGENCY: STATUS: COMPLETED WALK-IN NOTE PRIMARY CARE (T) Has ADDENDA <====Click to Start Advanced Medical Support [employer] presents to the Primary Care clinic with the following request: [ X ]Medication Renewal/Refill [ ]Consultation with Team RN [ ]Symptoms [ ]Other The states they are: [ ]Waiting [ X ]Not Waiting No Walk in visit scheduled with PACT Nurse [ X ] At this encounter the 's demographics were verified. [ X ] At this encounter the [employer]'s Insurance information was verified. [ X ] At this encounter the below scheduled visits for the [employer] were discussed and appointment reminder card was offered. Future appointments: 07/12/2024 13:00 CWM/SO/PACT 11/12/2024 15:30 CWM/NO/OPTOMETRY/[place] dropped off four prescriptions [address] Dr. Skinny Garcia for: metoprolol Atorvastatin Lisinopril Glipizide /es/ ANA LAURA ROMAN Signed: 03/09/2024 12:38 03/09/2024 ADDENDUM STATUS: COMPLETED Prscriptions placed in provider's box for review. 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 /lynnette/ ANA LAURA ROMAN Signed: 03/09/2024 12:40 Receipt Acknowledged By: 03/13/2024 10:27 /lynnette/ EULALIA BRAXTON RN REGISTERED NURSE 03/13/2024 09:38 /lynnette/ KALYAN BROWN LPN PACT 10 03/13/2024 ADDENDUM STATUS: COMPLETED Medication requests sent to the provider. /lynnette/ EULALIA BRAXTON RN REGISTERED NURSE Signed: 03/13/2024 10:36 ANA LAURA GOMEZ
--- OUTSIDE RECORDS SUMMARY | 2024-06-05 08:37 | XMS_ITS | Encounter Summary ---
Author Name [facility] [place] [facility] [place] Address [address] [place] [address] Care Team Providers Care Warehouse Handler Name Role Phone JORDY PONCE Primary Care [...] Workman's Name Patient's Relationship to Policy Workman [facility] (WNR) MEDICARE ADVANTAGE [facility] (WNR) May 30, 2023 [id number] 62 AG CARPENTER PATIENT MEDICAID MEDICAID [facility] May 30, 2017 MEDICAI D [id number] AG CARPENTER PATIENT Selected Encounter This section includes the information on record at [place] for the Encounter. Date/Time Encounter Type Encounter Description Reason Provider Source Feb 29, 2024 01:00 PM PSYTX W PT 30 MINUTES [facility] INDIV ICD-10-CM F32.A Depression, unspecified SAGAR LAZARO Encounter Template Text not used by [place] Assessments - Encounter Diagnoses This section includes the primary and secondary diagnoses documented for the Encounter. Date/Time Primary/Secondary Diagnosis Diagnosis Name Provider Source Feb 29, 2024 02:10 PM PRIMARY Depression, unspecified SAGAR LAZARO Plan of Treatment: Future Appointments (+ 6 months) and Future Tests (+/- 45 days) The Plan of Treatment section includes future care activities for the patient from all [place] treatmentfacilities. This section includes future appointments and future orders which are active, pending or scheduled. Future Appointments This section includes appointments that were scheduled to occur 6 months from the date of the Encounter, up to a maximum of 20 appointments. The data comes from all [place] treatment facilities. Appointment Date/Time Appointment Type Appointme nt Facility Name Jul 10, 2024 01:30 PM AM[place]ULATORY - MEDICINE [place] [facility] [place] [facility] Social History: Smoking Status (Most current) and Tobacco Use (All prior to encounter date) This section includes the most current, and the historical, smoking and tobacco- related health factors from the [place] facility where the Encounter took place. Current Smoking Status This section includes the most current smoking, or tobacco-related health factor, from the [place] facility where the Encounter took place. Date/Time Current Smoking Status Comment Facil ity Jul 13, 2023 12:30 PM VA-TOBACCO FORMER USER [facility] Tobacco Use History This section includes a history of the smoking, or tobacco-related health factors, that were collected on or before the date of the Encounter. The data comes from the [place] facility where the Encounter took place. Date/Time Smoking Status/Tobacco Use Comment F acility Jul 13, 2023 12:30 PM VA-TOBACCO QUIT 5 TO < 15 YRS [facility] Jul 13, 2022 01:30 PM VA-TOBACCO FORMER USER [facility] Jul 13, 2022 01:30 PM VA-TOBACCO QUIT 5 TO < 15 YRS [facility] Jun 24, 2021 02:00 PM VA-TOBACCO FORMER USER [facility] Jun 24, 2021 02:00 PM VA-TOBACCO QUIT 15 YRS OR MORE [facility] October 25, 2018 02:45 PM VA-TOBACCO FORMER USER [facility] October 25, 2018 02:45 PM VA-TOBACCO QUIT 5 TO < 15 YRS [facility] October 10, 2017 09:12 AM QUIT TOBACCO USE > 7 YEARS AGO [facility] Advance Directives: All historical and current Section Date Range: From patient's date of to the date document was created. This section includes ALL of a patient's completed or amended [place] Advance and Rescinded Directives. The entries below indicate that a directive exists for the patient, but an actual copy is not included with this document. The data comes from all [place] facilities. Date Advance Directives Provider Source Jun 15, 2018 ADVANCE DIRECTIVE ROYA ARCE [facility] Encounter Notes: All associated encounter notes This section contains the clinical notes associated to the Encounter. Date/Time Encounter Note(s) Provider Source Feb 29, 2024 01:00 PM MENTAL HEALTH OUTP ATIENT NOTE: LOCAL TITLE: PRIMARY MENTAL HEALTH OUTPATIENT FOLLOW UP NOTE STANDARD TITLE: MENTAL HEALTH OUTPATIENT NOTE DATE OF NOTE: FEB 29, 2024@13:00 ENTRY DATE: FEB 29, 2024@14:02:51 AUTHOR: SAGAR LAZARO EXP COSIGNER: URGENCY: STATUS: COMPLETED VISIT DURATION: 35 min VISIT TYPE: Individual, adwe-ox-htlc, follow-up visit PCP: JORDY PONCE DIAGNOSIS: Depressive Disorder, unspecified REASON FOR FOLLOW UP: Anger, depression, insomnia. 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 Stressors: Concerned about a large bill for cataract surgery. [facility] paid a [facility]. Unclear if claims were sent to secondary insurance. He will look into it. Sleep: Struggling with sleep onset insomnia Bedtime between 11pm-1am, falls asleep around 6am Wakes around 11am, though time out of bed is inconsistent Exercise: Not active lately. has been considering engaging in exercise with a friend who recently has cardiac surgery, for their mutual benefit. MEDICATION: VENLAFAXINE - Maybe more relaxed since dose was increased INTERVENTION: Reviewed progress toward goal of improving mood and better managing anger. -Denies anger, mood is generally good. Discussed sleep-related behavior change: -Benefits from breathing, white noise machine -Will try to limit cell phone internet use -Will try to end the night with reading on his Tyra instead the phone, so he does not stay up later than intended. Tyra makes him sleepy. DIAGNOSTIC IMPRESSIONS/PLAN: [place] is a 68-year-old single man referred by clinical pharmacist to [facility] psychologist for anger, depression and insomnia. The is coping with mild symptoms of depression and anxiety with mild interference in psychosocial functioning at this time. Today, he expresses feeling as though his situation has improved and voices adequate coping. No [facility] follow-up planned at this time. CURRENT IMPRESSION OF LETHALITY RISK / PLAN FOR RISK MANAGEMENT: [place] presents at low risk of harm to self or others at this time. INTERDICIPLINARY TREATMENT PLANNING INVOLVING: PACT PLAN FOR FOLLOW-UP: Treatment goals met. [place] will call for [facility] follow-up visit as needed in the future. /lynnette/ SAGAR LAZARO PSYD CLINICAL PSYCHOLOGIST Signed: 02/29/2024 14:11 SAGAR LAZARO
--- OUTSIDE RECORDS SUMMARY | 2024-06-05 08:37 | XMS_ITS | Encounter Summary ---
Author Name [facility] [place] Address [address] [place] [address] Care Team Providers Care Powerhouse Attendant Name Role Phone ROSARIOJORDY Primary Care Provider [...] Workman's Name Patient's Relationship to Policy Workman [facility] (WNR) MEDICARE ADVANTAGE [facility] (WNR) May 30, 2023 [id number] AG CARPENTER PATIENT MEDICAID MEDICAID [facility] May 30, 2017 MEDICAI D [id number] AG CARPENTER PATIENT Selected Encounter This section includes the information on record at [place] for the Encounter. Date/Time Encounter Type Encounter Description Reason Provider Source Jan 11, 2024 12:30 PM MTMS BY PHARM ADDL 15 MIN CLINICAL PHARMACY ICD-10-CM E11.9 Type 2 diabetes mellitus without complications BELIA FLOR K[place]ia Encounter Template Text not used by [place] Assessments - Encounter Diagnoses This section includes the primary and secondary diagnoses documented for the Encounter. Date/Time Primary/Secondary Diagnosis Diagnosis Name Provider Source Jan 11, 2024 12:50 PM PRIMARY Type 2 diabetes mellitus without complications BELIA FLOR Plan of Treatment: Future Appointments (+ 6 months) and Future Tests (+/- 45 days) The Plan of Treatment section includes future care activities for the patient from all [place] [facility]. This section includes future appointments and future orders which are active, pending or scheduled. Future Appointments This section includes appointments that were scheduled to occur 6 months from the date of the Encounter, up to a maximum of 20 appointments. The data comes from all [place] treatment facilities. Appointment Date/Time Appointment Type Appointme nt Facility Name Feb 29, 2024 01:00 PM AMBULATORY - PSYCHIATRY [facility] Jul 10, 2024 01:30 PM AMBULATORY - MEDICINE [facility] Lab Results: +/- 30 days of the encounter This section includes the Chemistry and Hematology Lab Results on record with [place] for the patient. Radiology Reports and Pathology Reports are provided separately, in subsequent sections. Lab Results This section contains the Chemistry/Hematology Results that were resulted 30 days before or 30 daysafter the date of the Encounter. Date/Time Source Result Type Result - Unit Interpretation Reference Range Comment Jan 11, 2024 01:05 PM [facility] HEMOGLOBIN A1C PANEL Specimen Type: BLOOD Comment: Values obtained from A1C measurements can vary. For atypical A1C assays, a reported value of 7.0 could actually be between 6.72 and 7.28 if measured by a reference method. A reported value of 9.0 could actually be between 8.73 and 9.27. Ref: http://www.ngs p.org/CAPdata. asp Ordering Provider: BELIA FLOR Report Released Date/Time: Jan 11, 2024 01:00 PM Reporting Lab: [facility] [address] [facility] [id number] Performing Lab: [facility] [address] [facility] [id number] HEMOGLOBIN A1C 6.4 H 4.0-5.6 Social History: Smoking Status (Most current) and Tobacco Use (All prior to encounter date) This section includes the most current, and the historical, smoking and tobacco- related health factors from the [place] facility where the Encounter took place. Current Smoking Status This section includes the most current smoking, or tobacco-related health factor, from the [place] facility where the Encounter took place. Date/Time Current Smoking Status Comment Mg cameron Jul 13, 2023 12:30 PM VA-TOBACCO FORMER USER [place] Tobacco Use History This section includes a history of the smoking, or tobacco-related health factors, that were collected on or before the date of the Encounter. The data comes from the [place] facility where the Encounter took place. Date/Time Smoking Status/Tobacco Use Comment F acility Jul 13, 2023 12:30 PM VA-TOBACCO QUIT 5 TO < 15 YRS [place] Jul 13, 2022 01:30 PM VA-TOBACCO FORMER USER [place] Jul 13, 2022 01:30 PM VA-TOBACCO QUIT 5 TO < 15 YRS [place] Jun 24, 2021 02:00 PM VA-TOBACCO FORMER USER [place] Jun 24, 2021 02:00 PM VA-TOBACCO QUIT 15 YRS OR MORE [place] October 25, 2018 02:45 PM VA-TOBACCO FORMER USER [place] October 25, 2018 02:45 PM VA-TOBACCO QUIT 5 TO < 15 YRS [place] October 10, 2017 09:12 AM QUIT TOBACCO USE > 7 YEARS AGO [place] Advance Directives: All historical and current Section Date Range: From patient's date of to the date document was created. This section includes ALL of a patient's completed or amended [place] Advance and Rescinded Directives. The entries below indicate that a directive exists for the patient, but an actual copy is not included with this document. The data comes from all [facility]. Date Advance Directives Provider Source Jun 15, 2018 ADVANCE DIRECTIVE CLAUDE,ROYA [facility] Encounter Notes: All associated encounter notes This section contains the clinical notes associated to the Encounter. Date/Time Encounter Note(s) Provider Source Jan 11, 2024 04:09 PM LETTERS: LOCAL TITLE: PATIENT LETTER (B) STANDARD TITLE: LETTERS DATE OF NOTE: JAN 11, 2024@16:09 ENTRY DATE: JAN 11, 2024@16:09:11 AUTHOR: BELIA FLOR EXP COSIGNER: URGENCY: STATUS: COMPLETED JAN 11, 2024 SAMEER CARPENTER [address] [place] [address], [phone] Dear , Attached are the results of your laboratory tests. Your A1c is very well controlled, and no changes are indicated. Please contact the clinic if you start having issues with low blood sugar readings (less than 70) on a regular basis. Please contact me if you have any questions. Sincerely, Pharm. DangeloD. Clinical Pharmacist Practitioner Patient Aligned Care Team (PACT) [facility] BLOOD Jan 10 Reference 2023 13:05 Units Ranges HGB-A1c 6.4 H % 4 - 5.6 BELIA FLOR [place] Jan 11, 2024 01:02 PM ADDENDUM: LOCAL TITLE: Addendum STANDARD TITLE: ADDENDUM DATE OF NOTE: JAN 11, 2024@13:02:16 ENTRY DATE: JAN 11, 2024@13:02:17 AUTHOR: BELIA FLRO EXP COSIGNER: URGENCY: STATUS: COMPLETED DM well controlled, tolerating medications with out hypoglycemia. Will hand off to primary care for routine f/u in June. Please refer back to PACT Pharmacy clinic PRN. /es/ Belia Flor PharmD, [facility] Clinical Pharmacist Practitioner (PACT) Signed: 01/11/2024 13:03 Receipt Acknowledged By: 01/11/2024 13:51 /es/ JORDY PONCE MD Primary Care Physician --- Original Document --- 01/11/24 PHARMACY CLINIC NOTE: Briefly, SAMEER CARPENTER is a 68 year old WHITE MALE referred to the PACT clinical pharmacist practitioner clinic for comprehensive medication management. Patient's identity was confirmed using at least two indicators. Subjective: He recently had cataract surgery, was a bit more sedentary. He feels much better. CURRENT DIABETES MEDICATIONS: - Empagliflozin 25mg/metformin 1000mg SA once daily - Insulin glargine - using 23 units QHS - Glipizide 5mg BID - Trulicity 0.75mg qweekly PREVIOUS DIABETES MEDICATIONS: - GI side effects with metformin > 1000mg/day Medication Adherence: States he rarely misses doses. Tobacco: None since [place] in 2010 Alcohol: 2-3 drinks most weeks, sometimes a little more. Only drinks socially Marijuana/Illicit Drugs: None Typical Diet: B: Coffee and PB toast L: Usually skips unless he goes out; [place] or chicken wrap D: Sauce with meatballs (with or without pasta); protein with salad; baked potato Snacks: carrots with ranch; tortilla chips; potato chips; cutting back on ice cream Drinks: Water, coffee Exercise/Activity: -Activities: Walks, rides the bike; hard to do during hot weather -Minutes/week spent doing moderate intensity or greater: a few times per week SMBG: Summary of [facility] Report (see [facility] for full report) Date >250 181-250 70-180 <70 <54 Avg Gluc GMI (%) ----(mg/dl) (%) 01/11/24 4% 21% 75% 0% 0% 146 6.8% 11/15/23 2% 20% 77% 1% 0% 142 6.7% 09/21/23 1% 19% 80% 0% 0% 139 6.6% 08/10/23 4% 17% 78% 1% 0% 142 6.7% *used 4 week report d/t missing data 07/13/23 14% 29% 57% 0% 0% 179 7.6% 06/29/23 1% 10% 84% 5% 0% 119 6.2 05/31/23 1% 19% 80% 0% 0% 140 6.7% Hypoglycemia: No lows in past 2 weeks Objectives: Vitals SVSO - Vital Select Outpat. [...] 12:04 SERUM CO2 21 mEq/L 20 - 07/08/2023 12:04 SERUM CREATININE, Serum 1.09 mg/dL [...] SENSOR ACTIVE DIRECTED EVERY 14 DAYS 6) ICOSAPENT ETHYL 1GM CAP TAKE TWO CAPSULES BY MOUTH ACTIVE TWICE DAILY FOR CORONARY ARTERY DISEASE WITH FOOD 7) LISINOPRIL 5MG TAB TAKE ONE TABLET BY MOUTH ONCE ACTIVE DAILY TO CONTROL BLOOD PRESSURE (FROM DR FABBY MEDINA) Inactive Outpatient Medications Status 1) METOPROLOL SUCCINATE 100MG SA TAB TAKE ONE TABLET BY MOUTH ONCE DAILY FOR CHRONIC HEART FAILURE FOR BLOOD PRESSURE/HEART Active Non-VA Medications Status 1) Non-VA ASPIRIN 81MG EC TAB 81MG BY MOUTH DAILY ACTIVE 2) Non-VA DULAGLUTIDE 0.75MG/0.5ML INJ PEN 0.75MG ACTIVE SUBCUTANEOUSLY ONCE A WEEK 3) Non-VA INSULIN,GLARGINE-YFGN 100UNIT/ML PEN 3ML 23 ACTIVE UNITS SUBCUTANEOUSLY ONCE DAILY 4) Non-VA METOPROLOL SUCCINATE 25MG SA TAB 25MG BY MOUTH ACTIVE AT BEDTIME 5) Non-VA MULTIVITAMIN/MINERALS CAP/TAB 1 TABLET BY ACTIVE MOUTH ONCE DAILY 6) Non-VA VENLAFAXINE HCL 75MG TAB 75MG BY MOUTH ONCE ACTIVE DAILY 14 Total Medications Remote Medications: No Active Remote Medications for this patient Allergy Assessment: Patient has answered NKA Assessment: DIABETES Diabetes control is at goal. He is doing very well. He would like to transition back to routine PCP f/u. He will contact clinic for new referral if his CGM starts showing frequent low readings or excessive high readings. Hgb A1c Goal Fasting/Preprandial BG Goal Bedtime BG Goal <7-7.5% 80-130 mg/dL 80-180 mg/dL CARDIOVASCULAR - Hypertension - Blood Pressure - at goal - ASCVD - on statin, icosapent ethyl, ASA, and cardiorenal protective meds PREVENTIVE CARE - Most recent visit to Podiatry: Consult was discontinued by Podiatry - Most recent visit to Optometry: 11/05/22: Type II diabetes without retinopathy or macular edema [facility]. Plan: -Hand off to primary care -LSM -Medications reconciled -Otherwise continue current medications EDUCATION -A shared decision-making approach was used in the development of this plan, involving the [place], clinician, and any caregivers present. The was provided the opportunity express questions or concerns, and the plan was adjusted as needed to address these concerns. -Reviewed with [place] any new medications, changes to the medication list, education, and plan from today's visit. Patient (and/or caregiver) verbalized understanding of the plan, including possible known risks and benefits, and had no additional questions. RTC: 3 months Time spent with patient: 30 minutes PharmD tool: XUAN Hugo Pharmacotherapy Rem V12: PHARMACIST INTERVENTIONS: TYPE 2 DIABETES MELLITUS Medication monitoring, no dosage change required, continue to monitor and assess Medication reconciliation (changes to active VA and non-VA medication lists to reconcile differences) No changes to medication lists made (medication review completed, no discrepancies identified) /lynnette/ Belia Flor PharmD, [facility] Clinical Pharmacist Practitioner (PACT) Signed: 01/11/2024 13:01 BELIA FLOR [place] Jan 11, 2024 01:01 PM DIABETOLOGY NOTE: LOCAL TITLE: INSULIN PUMP/CGM DOWNLOAD (T) STANDARD TITLE: DIABETOLOGY NOTE DATE OF NOTE: JAN 11, 2024@13:01 ENTRY DATE: JAN 11, 2024@13:01:58 AUTHOR: BELIA FLOR EXP COSIGNER: URGENCY: STATUS: COMPLETED Please select: Personal Continuous Glucose Monitor Date of Documentation:Dec Please see attached scanned document in [facility]. /nuzhat Flor PharmD, [facility] Clinical Pharmacist Practitioner (PACT) Signed: 01/11/2024 13:02 BELIA FLOR [place] Jan 11, 2024 12:38 PM PHARMACY OUTPATIEN T NOTE: LOCAL TITLE: PHARMACY CLINIC NOTE STANDARD TITLE: PHARMACY OUTPATIENT NOTE DATE OF NOTE: JAN 11, 2024@12:38 ENTRY DATE: JAN 11, 2024@12:38:30 AUTHOR: BELIA FLOR EXP COSIGNER: URGENCY: STATUS: COMPLETED PHARMACY CLINIC NOTE Has ADDENDA Briefly, SAMEER CARPENTER is a 68 year old WHITE MALE referred to the PACT clinical pharmacist practitioner clinic for comprehensive medication management. Patient's identity was confirmed using at least two indicators. Subjective: He recently had cataract surgery, was a bit more sedentary. He feels much better. CURRENT DIABETES MEDICATIONS: - Empagliflozin 25mg/metformin 1000mg SA once daily - Insulin glargine - using 23 units QHS - Glipizide 5mg BID - Trulicity 0.75mg qweekly PREVIOUS DIABETES MEDICATIONS: - GI side effects with metformin > 1000mg/day Medication Adherence: States he rarely misses doses. Tobacco: None since [place] in 2010 Alcohol: 2-3 drinks most weeks, sometimes a little more. Only drinks socially Marijuana/Illicit Drugs: None Typical Diet: B: Coffee and PB toast L: Usually skips unless he goes out; [place] or chicken wrap D: Sauce with meatballs (with or without pasta); protein with salad; baked potato Snacks: carrots with ranch; tortilla chips; potato chips; cutting back on ice cream Drinks: Water, coffee Exercise/Activity: -Activities: Walks, rides the bike; hard to do during hot weather -Minutes/week spent doing moderate intensity or greater: a few times per week SMBG: Summary of [place] Report (see [facility] for full report) Date >250 181-250 70-180 <70 <54 Avg Gluc GMI (%) ----(mg/dl) (%) 01/11/24 4% 21% 75% 0% 0% 146 6.8% 11/15/23 2% 20% 77% 1% 0% 142 6.7% 09/21/23 1% 19% 80% 0% 0% 139 6.6% 08/10/23 4% 17% 78% 1% 0% 142 6.7% *used 4 week report d/t missing data 07/13/23 14% 29% 57% 0% 0% 179 7.6% 06/29/23 1% 10% 84% 5% 0% 119 6.2 05/31/23 1% 19% 80% 0% 0% 140 6.7% Hypoglycemia: No lows in past 2 weeks Objectives: Vitals SVSO - Vital Select Outpat. [...] SENSOR ACTIVE DIRECTED EVERY 14 DAYS 6) ICOSAPENT ETHYL 1GM CAP TAKE TWO CAPSULES BY MOUTH ACTIVE TWICE DAILY FOR CORONARY ARTERY DISEASE WITH FOOD 7) LISINOPRIL 5MG TAB TAKE ONE TABLET BY MOUTH ONCE ACTIVE DAILY TO CONTROL BLOOD PRESSURE (FROM DR FABBY MEDINA) Inactive Outpatient Medications Status 1) METOPROLOL SUCCINATE 100MG SA TAB TAKE ONE TABLET BY MOUTH ONCE DAILY FOR CHRONIC HEART FAILURE FOR BLOOD PRESSURE/HEART Active Non-VA Medications Status 1) Non-VA ASPIRIN 81MG EC TAB 81MG BY MOUTH DAILY ACTIVE 2) Non-VA DULAGLUTIDE 0.75MG/0.5ML INJ PEN 0.75MG ACTIVE SUBCUTANEOUSLY ONCE A WEEK 3) Non-VA INSULIN,GLARGINE-YFGN 100UNIT/ML PEN 3ML 23 ACTIVE UNITS SUBCUTANEOUSLY ONCE DAILY 4) Non-VA METOPROLOL SUCCINATE 25MG SA TAB 25MG BY MOUTH ACTIVE AT BEDTIME 5) Non-VA MULTIVITAMIN/MINERALS CAP/TAB 1 TABLET BY ACTIVE MOUTH ONCE DAILY 6) Non-VA VENLAFAXINE HCL 75MG TAB 75MG BY MOUTH ONCE ACTIVE DAILY 14 Total Medications Remote Medications: No Active Remote Medications for this patient Allergy Assessment: Patient has answered NKA Assessment: DIABETES Diabetes control is at goal. He is doing very well. He would like to transition back to routine PCP f/u. He will contact clinic for new referral if his CGM starts showing frequent low readings or excessive high readings. Hgb A1c Goal Fasting/Preprandial BG Goal Bedtime BG Goal <7-7.5% 80-130 mg/dL 80-180 mg/dL CARDIOVASCULAR - Hypertension - Blood Pressure - at goal - ASCVD - on statin, icosapent ethyl, ASA, and cardiorenal protective meds PREVENTIVE CARE - Most recent visit to Podiatry: Consult was discontinued by Podiatry - Most recent visit to Optometry: 11/05/22: Type II diabetes without retinopathy or macular edema [facility]. Plan: -Hand off to primary care -LSM -Medications reconciled -Otherwise continue current medications EDUCATION -A shared decision-making approach was used in the development of this plan, involving the , clinician, and any caregivers present. The [place] was provided the opportunity express questions or concerns, and the plan was adjusted as needed to address these concerns. -Reviewed with any new medications, changes to the medication list, education, and plan from today's visit. Patient (and/or caregiver) verbalized understanding of the plan, including possible known risks and benefits, and had no additional questions. RTC: 3 months Time spent with patient: 30 minutes PharmD tool: PBM PharmD Pharmacotherapy Rem V12: PHARMACIST INTERVENTIONS: TYPE 2 DIABETES MELLITUS Medication monitoring, no dosage change required, continue to monitor and assess Medication reconciliation (changes to active VA and non-VA medication lists to reconcile differences) No changes to medication lists made (medication review completed, no discrepancies identified) /lynnette/ Belia Flor PharmD, [facility] Clinical Pharmacist Practitioner (PACT) Signed: 01/11/2024 13:01 01/11/2024 ADDENDUM STATUS: COMPLETED DM well controlled, tolerating medications with out hypoglycemia. Will hand off to primary care for routine f/u in June. Please refer back to PACT Pharmacy clinic PRN. /lynnette/ Belia Flor, PharmD, [facility] Clinical Pharmacist Practitioner (PACT) Signed: 01/11/2024 13:03 Receipt Acknowledged By: * AWAITING SIGNATURE * JORDY PONCE,BELIA SALAZAR
--- OUTSIDE RECORDS SUMMARY | 2024-06-05 08:37 | XMS_ITS | Encounter Summary ---
Author Name [facility] Address [address] [place] [address] Care Team Providers Care Traffic Engineering Technician Name Role Phone ROSARIOJORDY Primary Care Provider [...] Workman's Name Patient's Relationship to Policy Workman [facility] (WNR) MEDICARE ADVANTAGE [facility] (WNR) May 30, 2023 [id number] AG CARPENTER PATIENT MEDICAID MEDICAID [facility] May 30, 2017 MEDICAI D [id number] AG CARPENTER PATIENT Selected Encounter This section includes the information on record at [facility] for the Encounter. Date/Time Encounter Type Encounter Description Reason Provider Source Sep 21, 2023 12:30 PM MTMS BY PHARM ADDL 15 MIN CLINICAL PHARMACY ICD-10-CM E11.9 Type 2 diabetes mellitus without complications BELIA FLOR [place] Encounter Template Text not used by [facility] Assessments - Encounter Diagnoses This section includes the primary and secondary diagnoses documented for the Encounter. Date/Time Primary/Secondary Diagnosis Diagnosis Name Provider Source Sep 21, 2023 01:24 PM PRIMARY Type 2 diabetes mellitus without complications BELIA FLOR Sep 21, 2023 01:24 PM SECONDARY Hyperlipidemia, unspecified BELIA FLOR [facility] Plan of Treatment: Future Appointments (+ 6 months) and Future Tests (+/- 45 days) The Plan of Treatment section includes future care activities for the [facility] This section includes future appointments and future orders which are active, pending or scheduled. Future Appointments This section includes appointments that were scheduled to occur 6 months from the date of the Encounter, up to a maximum of 20 appointments. The data comes from all [facility] facilities. Appointment Date/Time Appointment Type Appointme nt Facility Name October 17, 2023 01:00 PM AMBULATORY - PSYCHIATRY [facility] Nov 08, 2023 02:30 PM AMBULATORY - MEDICINE [facility] [place] [facility] Nov 09, 2023 01:00 PM AMBULATORY - PSYCHIATRY [facility] Nov 10, 2023 01:00 PM AMBULATORY MEDICINE [facility] [place] [facility] Nov 15, 2023 01:00 PM AMBULATORY MEDICINE [facility] [place] [facility] Jan 11, 2024 12:30 PM AMBULATORY - MEDICINE [facility] [place] [facility] Feb 29, 2024 01:00 PM AMBULATORY - PSYCHIATRY [facility] Social History: Smoking Status (Most current) and Tobacco Use (All prior to encounter date) This section includes the most current, and the historical, smoking and tobacco- related health factors from the ID facility where the Encounter took place. Current Smoking Status This section includes the most current smoking, or tobacco-related health factor, from the ID facility where the Encounter took place. Date/Time Current Smoking Status Comment Mg ity Jul 13, 2023 12:30 PM VA-TOBACCO FORMER USER [facility] Tobacco Use History This section includes a history of the smoking, or tobacco-related health factors, that were collected on or before the date of the Encounter. The data comes from the ID facility where the Encounter took place. Date/Time Smoking Status/Tobacco Use Comment F acility Jul 13, 2023 12:30 PM VA-TOBACCO QUIT 5 TO < 15 YRS [facility] Jul 13, 2022 01:30 PM VA-TOBACCO FORMER USER [facility] Jul 13, 2022 01:30 PM VA-TOBACCO QUIT 5 TO < 15 YRS [facility] Jun 24, 2021 02:00 PM VA-TOBACCO FORMER USER [facility] Jun 24, 2021 02:00 PM VA-TOBACCO QUIT 15 YRS OR MORE [facility] October 25, 2018 02:45 PM VA-TOBACCO FORMER USER [facility] October 25, 2018 02:45 PM VA-TOBACCO QUIT 5 TO < 15 YRS [facility] October 10, 2017 09:12 AM QUIT TOBACCO USE > 7 YEARS AGO [facility] Advance Directives: All historical and current Section Date Range: From patient's date of to the date document was created. This section includes ALL of a patient's completed or amended [facility] Advance and Rescinded Directives. The entries below indicate that a directive exists for the patient, but an actual copy is not included with this document. The data comes from all ID facilities. Date Advance Directives Provider Source Jun 15, 2018 ADVANCE DIRECTIVE ROYA ARCE [facility] Encounter Notes: All associated encounter notes This section contains the clinical notes associated to the Encounter. Date/Time Encounter Note(s) Provider Source Sep 21, 2023 12:42 PM DIABETOLOGY NOTE: LOCAL TITLE: INSULIN PUMP/CGM DOWNLOAD (T) STANDARD TITLE: DIABETOLOGY NOTE DATE OF NOTE: SEP 21, 2023@12:42 ENTRY DATE: SEP 21, 2023@12:42:16 AUTHOR: BELIA FLOR EXP COSIGNER: URGENCY: STATUS: COMPLETED Please select: Personal Continuous Glucose Monitor Date of Documentation:Aug Please see attached scanned document in [facility]. /lynnette/ Belia Flor PharmD Clinical Pharmacist Practitioner Signed: 09/21/2023 13:47 BELIA FLOR [facility] Sep 21, 2023 12:33 PM PHARMACY OUTPATIEN T NOTE: LOCAL TITLE: PHARMACY CLINIC NOTE STANDARD TITLE: PHARMACY OUTPATIENT NOTE DATE OF NOTE: SEP 21, 2023@12:33 ENTRY DATE: SEP 21, 2023@12:33:04 AUTHOR: BELIA FLOR EXP COSIGNER: URGENCY: STATUS: COMPLETED Briefly, JAYDENSAMEER MCKEON is a 68 year old WHITE MALE [place] referred to the [facility] clinical pharmacist practitioner [...] he rarely misses doses. Tobacco: None since ID in 2010 Alcohol: 2-3 drinks most weeks, sometimes a little more. Only drinks socially Marijuana/Illicit Drugs: None Typical Diet: No recent changes, except eating more salads B: Coffee and PB toast L: Usually skips unless he goes out; [place] or chicken wrap D: Sauce with meatballs (with or without pasta); protein with salad; baked potato Snacks: carrots with ranch; tortilla chips; potato chips; cutting back on ice cream Drinks: Water, coffee Exercise/Activity: -Activities: Walks -Minutes/week spent doing moderate intensity or greater: a few times per week SMBG: Summary of [place] Report (see [facility] for full report) Date >250 181-250 70-180 <70 <54 Avg Gluc GMI (%) ----(mg/dl) (%) 09/21/23 1% 19% 80% 0% 0% 139 [...] TAB 75MG BY MOUTH ONCE ACTIVE DAILY 13 Total Medications Remote Medications: No Active Remote Medications for this patient Allergy Assessment: Patient has answered NKA Assessment: DIABETES Diabetes control is at goal. Doing well on current medications and working on diet, especially eating more salads. Hgb A1c Goal Fasting/Preprandial BG Goal Bedtime BG Goal <7-7.5% 80-130 mg/dL 80-180 mg/dL HYPERLIPIDEMIA Interested in pursuing a substitute for fish oil to reduce his risk of cardiovascular events and better control his triglycerides. MENTAL HEALTH CONCERNS -Reporting anger/depression centered around interactions with a person in his social life. After discussion, he is agreeable to [facility] referral. He denied SI/HI or preparatory behavior, and he was given a copy of the number for [facility]. CARDIOVASCULAR - Hypertension - Blood Pressure - at goal - ASCVD - CPK was elevated with rosuvastatin and complained of muscle pain. Muscle pain has improved since changing back to atorvastatin. PREVENTIVE CARE - Most recent visit to Podiatry: Consult was discontinued by Podiatry - Most recent visit to Optometry: 11/05/22: Type II diabetes without retinopathy or macular edema OU. Plan: -NF for icosapent ethyl - reviewed side effects and how to monitor for potential bleeding, including melena [facility] -Adjust insulin glargine dose to reflect current use -Start icosapent ethyl 2 grams twice daily with food -TLC -Medications reconciled -Otherwise continue current medications EDUCATION -A shared decision-making approach was used in the development of this plan, involving the , clinician, and any caregivers present. The [place] was provided the opportunity express questions or concerns, and the plan was adjusted as needed to address these concerns. -Reviewed with [place] any new medications, changes to the medication list, education, and plan from today's visit. Patient (and/or caregiver) verbalized understanding of the plan, including possible known risks and benefits, and had no additional questions. RTC: 8 weeks Time spent with patient: 45 minutes PharmD tool: XUAN Hugo Pharmacotherapy Rem V12: PHARMACIST INTERVENTIONS: LIPID MANAGEMENT Medication Intervention(s) Initiate new medication TYPE 2 DIABETES MELLITUS Medication Intervention(s) Adjust dose or frequency of current medication due to other reason MENTAL HEALTH ADDITIONAL INTERVENTION(S) Referral/consultation made by pharmacist for additional care: Therapeutic support (e.g., therapist, peer support, hardboard supervisor services) Medication reconciliation (changes to active VA and non-VA medication lists to reconcile differences) No changes to medication lists made (medication review completed, no discrepancies identified) Referral/consultation made by pharmacist for additional care Suicide risk assessment, screening and/or education Suicide screening Provided [place] Crisis Hotline number /es/ Belia Flor PharmD Clinical Pharmacist Practitioner Signed: 09/21/2023 13:29 BELIA FLOR [facility]
--- OUTSIDE RECORDS SUMMARY | 2024-06-05 08:37 | XMS_ITS | Encounter Summary ---
Author Name [facility] [place] Organization [place] Address [address] [place] [address] Care Team Providers Care Bundle Helper Name Role Phone JORDY PONCE Primary Care [...] Workman's Name Patient's Relationship to Policy [facility] (WNR) MEDICARE ADVANTAGE [facility] (WNR) May 30, 2023 [id number] AG CARPENTER PATIENT MEDICAID MEDICAID [facility] May 30, 2017 MEDICAI D [id number] AG CARPENTER PATIENT Selected Encounter This section includes the information on record at [place] for the Encounter. Date/Time Encounter Type Encounter Description Reason Provider Source Nov 08, 2023 02:30 PM COMPRE OPH EXAM EST PT 1/> OPTOMETRY ICD-10-CM E11.9 Type 2 diabetes mellitus without complications PITA NOBLES Encounter Template Text not used by [place] Assessments - Encounter Diagnoses This section includes the primary and secondary diagnoses documented for the Encounter. 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 This section includes future appointments and future orders which are active, pending or scheduled. Future Appointments This section includes appointments that were scheduled to occur 6 months from the date of the Encounter, up to a maximum of 20 appointments. The data comes from all [place] treatment facilities. Appointment Date/Time Appointment Type Appointme nt Facility Name Nov 09, 2023 01:00 PM AMBULATORY - PSYCHIATRY [facility] Nov 10, 2023 01:00 PM AMBULATORY [place]ICINE [place] [facility] [place] [facility] Nov 15, 2023 01:00 PM AM[place]ULATORY [place]ICINE [place] [facility] [place] [facility] Jan 11, 2024 12:30 PM AM[place]ULATORY [place]ICINE [place] [facility] [place] [facility] Feb 29, 2024 01:00 PM AMBULATORY - PSYCHIATRY [facility] Advance Directives: All historical and current Section Date Range: From patient's date of to the date document was created. This section includes ALL of a patient's completed or amended [place] Advance and Rescinded Directives. The entries below indicate that a directive exists for the patient, but an actual copy is not included with this document. The data comes from all [facility]. Date Advance Directives Provider Source Jun 15, [address] [facility] Encounter Notes: All associated encounter notes This section contains the clinical notes associated to the Encounter. Date/Time Encounter Note(s) Provider Source Nov 08, 2023 02:35 PM OPTOMETRY NOTE: LOCAL TITLE: OPTOMETRY NOTE STANDARD TITLE: OPTOMETRY NOTE DATE OF NOTE: NOV 08, 2023@14:35 ENTRY DATE: NOV 08, 2023@14:35:31 AUTHOR: PITA NOBLES EXP COSIGNER: URGENCY: STATUS: COMPLETED 68 WHITE MALE NOT OR Last eye exam: 11/04/22 Reason for Visit/CC: patient here for a comprehensive eye exam. Vision in left eye seems much worse for the last few months. He is scheduled to see Dr. Chakraborty on . OHx: 1. Type II diabetes without retinopathy or macular edema OU 2. Combined cataracts OU 3. presbyopia OU (-) Pain: (-) CALLAHAN: (-) Diplopia: (-) Flashes: (-) Floaters: (-) Amaurosis Fugax/Tia's: (-) Eye Injury: (-) Eye Surgery: (-) TBI (-) FOHx: MHx: Code Description E66.9 Obesity ([facility] 965992352) G47.30 Obstructive sleep apnea syndrome ([facility] 24960537) I10. HTN - Hypertension ([facility] 35915528) E78.5 Hyperlipidemia ([facility] 16372578) E11.9 Diabetes Mellitus Type 2 ([facility] 17381195) I51.9 Coronary artery disease ([facility] 76400187) R69. NON VA PCP (ICD-10-CM R69.) R69. Colonoscopy Screening (ICD-10-CM R69.) R69. History of [place] (ICD-10-CM R69.) Other: SYSTEMIC MEDICATIONS/OCULAR MEDICATIONS: Active and Recently Outpatient Medications (excluding Supplies): Active Outpatient Medications Status 1) ATORVASTATIN [...] MEAL FOR TYPE 2 DIABETES MELLITUS 5) ICOSAPENT ETHYL 1GM CAP TAKE TWO CAPSULES BY MOUTH ACTIVE TWICE DAILY FOR CORONARY ARTERY DISEASE WITH FOOD 6) LISINOPRIL 5MG TAB TAKE ONE TABLET [...] MOUTH ONCE ACTIVE DAILY 13 Total Medications ALLERGIES: Patient has answered NKA LAST BP: 130/76 (07/13/2023 14:00) PERTINENT LABS: HEMOGLOBIN A1C; BLOOD Yosef. Date: 07/08/23 12:04 04/07/23 13:21 Test Name Result Units Range HEMOGLOBIN A1C 6.5 H 6.4 H % 4.0 - 5.6 ++++++++++++++++++++++++++ ++++++++++++++++++++++++++ ++++++++++++++++++++++++++ + Patient history, visual acuity, entrance testing, refraction and tonometry all performed now by unit technician and reviewed by attending provider. Dilation drops instilled by unit technician after angle assessment and dilation warning given with verbal consent obtained. ++++++++++++++++++++++++++ ++++++++++++++++++++++++++ ++++++++++++++++++++++++++ + SLE: Lids/Lashes: clear OU Conjunctiva: white and quiet OU Corneas: clear OU Iris: flat and clear OU (-)NVI OU Anterior Chamber: deep and quiet OU Angles: open OU Lens: 2+ NS OU, 1-2+ ACC OS>OD, 2+ PSC OD, 3+ PSC OS DFE: Vitreous: Syneresis OU C/D (Size and Rim Description) OD 0.45 pink & healthy OS 0.40 pink & healthy (-)NVD OU Macula OD flat and clear OS flat and clear - hazy view (-)CSME OU A/V: normal caliber OU Posterior Pole: clear OU Periphery: Flat and intact (-)NVE, holes, tears, detachments 360 OU Assessment/Plan: 1. Type II diabetes without retinopathy or macular edema OU. Pt ed on findings and importance of good blood glucose control. Monitor annually 2. Combined cataracts OU, now with visually significant posterior subcapsular cataract OS>OD. Patient requests cataract surgery consult for Dr. Chakraborty which was entered today. Answered all of patient's questions regarding process. He understands that consult likely won't have been processed by and he may need to utilize other insurance for this visit. 3. presbyopia OU - continue with current Rx RTC 1 year or earlier PRN Patient Education: Diabetes: Patient was educated regarding diabetes and related ocular complications including retinopathy and cataract formation as well as other related systemic complications. The importance of good blood sugar control, blood sugar testing as recommended by their PCP and the importance of timely follow up were all emphasized. patient offered and declined printed medication list Medication Reconciliation: Outpatient: Has the patient been taking medications as documented in the EMLR? YES: The patient has been taking medications as documented in the EMLR. Essential Medication List for Review used to complete this medication reconciliation. INCLUDED IN THIS LIST: Alphabetical list of active outpatient prescriptions dispensed from this VA (local) and dispensed from another VA or [facility] facility (remote) as well as inpatient orders [...] Remote Allergy/ADR Data available for this patient [place] [facility] [place] [facility] No Known Allergies Med Recon NoGlossary [...] 90 days. Non-VA Meds Last Documented On: Sep 21, 2023 NOTE The display of VA prescriptions dispensed from another VA or [facility]D facility (remote) is limited to active outpatient prescription entries matched to National Drug File at the originating site and may not include some items such as investigational drugs, compounds, etc. NOT INCLUDED IN THIS LIST: Medications self-entered by the patient into personal health records (i.e. [employer]) are NOT included in this list. Non-VA medications documented outside this [place], remote inpatient orders (regardless of status) and remote clinic medications are NOT included in this list. The patient and provider must always discuss medications the patient is taking, regardless of where the medication was dispensed or obtained. Non-VA ASPIRIN 81MG EC TAB TAKE ONE TABLET BY MOUTH DAILY Non-VA medication not recommended by VA provider. OUTPT ATORVASTATIN CALCIUM 40MG TAB (Status = Active) TAKE ONE TABLET BY MOUTH ONCE DAILY FOR HIGH CHOLESTEROL Rx# [id number] Last Released: 10/11/23 Qty/Days Supply: Rx Expiration Date: 04/12/24 Refills Remainin Indication: FOR HIGH CHOLESTEROL Non-VA DULAGLUTIDE 0.75MG/0.5ML INJ PEN INJECT 0.75MG SUBCUTANEOUSLY ONCE A WEEK Medication prescribed by Non-VA provider. by Dr. Medina Indication: FOR TYPE 2 DIABETES MELLITUS OUTPT EMPAGLIFLOZIN 25/METFORM 1000MG 24HR TAB (Status = Discontinued) TAKE 1 TABLET BY MOUTH ONCE DAILY FOR TYPE 2 DIABETES Rx# [id number] Last Released: 07/12/23 Qty/Days Supply: Rx Expiration Date: 05/31/24 Refills Remainin Indication: FOR TYPE 2 DIABETES OUTPT EMPAGLIFLOZIN 25/METFORM 1000MG 24HR TAB (Status = Active) TAKE 1 TABLET BY MOUTH ONCE DAILY FOR TYPE 2 DIABETES Rx# [id number] Last Released: 08/11/23 Qty/Days Supply: Rx Expiration Date: 08/10/24 Refills Remainin Indication: FOR TYPE 2 DIABETES OUTPT FENOFIBRATE 145MG TAB (Status = Active) TAKE ONE TABLET BY MOUTH ONCE DAILY FOR HIGH CHOLESTEROL REPLACES GEMFIBROZIL Rx# [id number] Last Released: 08/24/23 Qty/Days Supply: Rx Expiration Date: 02/16/24 Refills Remainin Indication: FOR HIGH CHOLESTEROL OUTPT GLIPIZIDE 5MG TAB (Status = Active) TAKE ONE TABLET BY MOUTH TWICE DAILY BEFORE A MEAL FOR TYPE 2 DIABETES MELLITUS Rx# [id number] Last Released: 09/23/23 Qty/Days Supply: 120/60 Rx Expiration Date: 05/31/24 Refills Remainin Indication: FOR TYPE 2 DIABETES MELLITUS OUTPT ICOSAPENT ETHYL 1GM CAP (Status = Active) TAKE TWO CAPSULES BY MOUTH TWICE DAILY FOR CORONARY ARTERY DISEASE WITH FOOD Rx# [id number] Last Released: 09/26/23 Qty/Days Supply: 120/30 Rx Expiration Date: 09/21/24 Refills Remainin Indication: FOR CORONARY ARTERY DISEASE Non-VA INSULIN,GLARGINE-YFGN 100UNIT/ML PEN 3ML INJECT 23 UNITS SUBCUTANEOUSLY ONCE DAILY Medication prescribed by Non-VA provider. actually Lantus OUTPT LISINOPRIL 5MG TAB (Status = Active) TAKE ONE TABLET BY MOUTH ONCE DAILY TO CONTROL BLOOD PRESSURE (FROM DR FABBY MEDINA) Rx# [id number] Last Released: 07/08/23 Qty/Days Supply: Rx Expiration Date: 02/16/24 Refills Remainin OUTPT METOPROLOL SUCCINATE 100MG SA TAB (Status = Active) TAKE ONE TABLET BY MOUTH ONCE DAILY FOR CHRONIC HEART FAILURE FOR BLOOD PRESSURE/HEART Rx# [id number] Last Released: 09/05/23 Qty/Days Supply: Rx Expiration Date: 01/01/24 Refills Remainin Indication: [...] ONCE DAILY Medication prescribed by Non-VA provider. SUPPLIES OUTPT GLUCOSE SENSOR FREESTYLE VLADISLAV 3 (Status = Active) USE 1 SENSOR DIRECTED EVERY 14 DAYS Rx# [id number] Last Released: 10/17/23 Qty/Days Supply: 07/27 Rx Expiration Date: 05/31/24 Refills Remainin /es/ PITA NOBLES OD Quilting Machine Helper Signed: 11/08/2023 15:30 PITA NOBLES [place] [facility] [place] [facility] Nov 08, 2023 09:12 AM OPTOMETRY TECHNICI AN NOTE: LOCAL TITLE: OPTOMETRY AUTO SERVICE INSTRUCTOR NOTE STANDARD TITLE: OPTOMETRY AUTO SERVICE INSTRUCTOR NOTE DATE OF NOTE: NOV 08, 2023@09:12 ENTRY DATE: NOV 08, 2023@09:12:26 AUTHOR: MAN SAVAGE COSIGNER: URGENCY: STATUS: COMPLETED Active problems - Computerized Problem List is the source for the followin. Obesity 2. Obstructive sleep apnea syndrome 3. HTN - Hypertension ([facility] [id number]) 4. Hyperlipidemia ([facility] 38445056) 5. Diabetes Mellitus Type 2 ([facility] 50386942) 6. Coronary artery disease 7. NON VA PCP 8. Colonoscopy Screening 9. History of [place] Active Outpatient Medications (including Supplies): Active Outpatient Medications [...] 2 DIABETES MELLITUS 5) GLUCOSE SENSOR FREESTYLE VLADISLAV 3 USE 1 SENSOR ACTIVE DIRECTED EVERY 14 DAYS 6) ICOSAPENT ETHYL 1GM CAP TAKE TWO CAPSULES BY MOUTH ACTIVE TWICE DAILY FOR CORONARY ARTERY DISEASE WITH FOOD 7) LISINOPRIL 5MG TAB TAKE ONE TABLET BY MOUTH ONCE ACTIVE DAILY TO CONTROL BLOOD PRESSURE (FROM DR FABBY MEDINA) 8) METOPROLOL SUCCINATE 100MG SA TAB TAKE ONE [...] MOUTH ONCE ACTIVE DAILY 14 Total Medications Allergies: Patient has answered NKA All medications including those prescribed by outside VA's, community providers, and all OTC meds were reviewed and reconciled with patient to the best of their abilities. This 68 year old MALE is seen today for CEE Medical, eye, personal, and social history are all reviewed and is contributory or is not contributory to today's visit. Optometry Science And Operations Officer Attending Provider Note: Date of Last Exam:11/04/2022 Location: [facility] CLAUDIA VISIT 07/2023 Chief Complaint:I'm noticing my catarct left eye is noticable now, like cellopane. Also I get a star like effect with OS, when night driving. Noticed since the beggining of the year. Right eye stable. I did see Pedro Chakraborty MD in 07/2023, and I will see him again 11/10/2023. Can today's notes please be sent to him? HISTORY AND REVIEW OF SYSTEMS: OHX: Cataracts OU Refractive error (-) Pain: (-) CALLAHAN: (-) Diplopia: (-) Flashes: (+) Floaters:not new. (-) Amaurosis Fugax/Tia's: (-) Eye Injury: (-) Eye Surgery: (-) TBI (-) FOHx: (-) Smoker/Length of Time: DIABEIC: Yes LAST A1C: HEMOGLOBIN A1C PANEL BLOOD (LAV-BLOOD) MICHAEL LB #[id number] Collection time: Jul 08, 2023@12:04 Test Name Result Units Range --------- ------ ----- ----- HEMOGLOBIN A1C 6.5 H % 4.0 - 5.6 NEW ALLERGIES TO REPORT: No EYE MEDICATION(S):only lubricants prn CURRENT RX WITH BCVA: Subjective:10/2022 OD plano -0.25 x 165 20/20 OS -0.25 -0.50 x 170 20/20 Add: +2.25 20/20 OU DVA: ( )SC ( )CC (X)Phoropter ( )CL OD: 20/15 OS: 20/200-2 NVA OU: 20/ NVA OU 20/20 (using +3.00 OTC at 16 ) MANIFEST REFRACTION(MRx): OD:no change 20/15 OS:no improvement 20/200-2 ADD:+2.50 OU 20/20 CVF: Appear FTFC OU EOMS: Appear Full OU PUPILS: Appear ERRL(-)APD No NVI seen INTRAOCULAR PRESSURE (IOP) METHOD: Goldmann Time:2:48 OD:18 OS:17 ANTERIOR CHAMBER (AC): Penlight or slit lamp (if available) exam appears unremarkable. Pupils are dilated. Dilation and driving precautions reviewed with patient and patient expresses understanding. Medication: 1% Tropicamide, 2.5% Phenylephrine OU Time:2:50 Visual Imaging Performed Today:none Additional Comments: /lynnette/ MAN SAVAGE OPTOMETRY TECH Signed: 11/08/2023 14:54 MAN SAVAGE [facility]
--- OUTSIDE RECORDS SUMMARY | 2024-06-05 08:37 | XMS_ITS ---
Author Name [facility] [place] Organization [place] Address [address] [place] [address] Care Team Providers Care Seed Service Advisor Name Role Phone JORDY PONCE Primary Care [...] Name Patient's Relationship to Policy Workman [employer] [facility] (WNR) MEDICARE ADVANTAGE [facility] (WNR) May 30, 2023 [id number] AG CARPENTER PATIENT MEDICAID MEDICAID [facility] May 30, 2017 MEDICAI D [id number] AG CARPENTER PATIENT Selected Encounter This section includes the information on record at [place] for the Encounter. Date/Time Encounter Type Encounter Description Reason Pro vider Source Feb 14, 2024 12:52 PM Outpatient Encounter ADMIN PAT ACTIVTIES (MASNONCT) IHE Encounter Template Text not used by [place] Plan of Treatment: Future Appointments (+ 6 [...] 20 appointments. The data comes from all [place] treatment facilities. Appointment Date/Time Appointment Type Appointme nt Facility Name Feb 29, 2024 01:00 PM AMBULATORY - PSYCHIATRY [facility] Jul 10, 2024 01:30 PM AMBULATORY - [place]ICINE [place] [facility] [place] [facility] Advance Directives: All historical and current Section Date Range: From patient's date of to the date document was created. This section includes ALL of a patient's completed or amended VA Advance and Rescinded Directives. The entries below indicate that a directive exists for the patient, but an actual copy is not included with this document. The data comes from all [place] facilities. Date Advance Directives Provider Source Jun 15, 2018 ADVANCE DIRECTIVE ROYA ARCE [facility] Encounter Notes: All associated encounter notes This section contains the clinical notes associated to the Encounter. Date/Time Encounter Note(s) Provider Source Feb 20, 2024 03:21 PM ADDENDUM: LOCAL TITLE: Addendum STANDARD TITLE: ADDENDUM DATE OF NOTE: FEB 20, 2024@15:21:53 ENTRY DATE: FEB 20, 2024@15:21:53 AUTHOR: GABRIEL WALKER EXP COSIGNER: URGENCY: STATUS: COMPLETED Adding covering Prescriber for Aj Ruiz. /lynnette/ GABRIEL WALKER [facility] BRINE TANK SEPARATOR OPERATOR Signed: 02/20/2024 15:22 Receipt Acknowledged By: 02/20/2024 15:35 /lynnette/ Marilynn Stack, PharmD, BCPS, BCACP VISN1 [facility] PACT Clinical Pharmacist Practitioner ========= --- Original Document --- 02/14/24 OUTPATIENT MEDICATION REQUEST: Medication Request Date of Request: Jan Is this a New Medication? No ==> FENOFIBRATE 145MG TAB TAKE ONE TABLET BY MOUTH ONCE ACTIVE DAILY FOR HIGH CHOLESTEROL REPLACES GEMFIBROZIL The following actions were performed: PACT Team RN and Provider added as additional Signers to this request *Please let patient know that this request may take up to 72 hours to process.* /lynnette/ Laisha Dasilva PharmD Clinical Pharmacy Practitioner Signed: 02/14/2024 12:53 Receipt Acknowledged By: 02/14/2024 13:02 /nuzhat BRAXTON RN REGISTERED NURSE 02/14/2024 13:24 /lynnette/ JORDY PONCE MD Primary Care Physician 02/14/2024 13:25 /lynnette/ KALYAN BROWN LPN PACT 10 02/14/2024 ADDENDUM STATUS: COMPLETED Please call pt and inform him we will need a new RX for requested med from his prescriber. Thanks /nuzhat PONCE MD Primary Care Physician Signed: 02/14/2024 13:25 Receipt Acknowledged By: 02/14/2024 13:42 /nuzhat BRAXTON RN REGISTERED NURSE 02/14/2024 ADDENDUM STATUS: COMPLETED Electrocardiograph Operator left a vaoice mail letting Vet know he will need a new script faxed to the [place] in order to fill. /nuzhat BROWN LPN PACT 10 Signed: 02/14/2024 13:27 02/17/2024 ADDENDUM STATUS: COMPLETED Electrocardiograph Operator left a second message asking Vet to get a script faxed to the VA so we could fill his medicaiton. /nuzhat BROWN LPN PACT 10 Signed: 02/17/2024 13:53 GABRIEL WALKER [place] [facility] [facility] Feb 14, 2024 01:24 PM ADDENDUM: LOCAL TITLE: Addendum STANDARD TITLE: ADDENDUM DATE OF NOTE: FEB 14, 2024@13:24:55 ENTRY DATE: FEB 14, 2024@13:24:56 AUTHOR: JORDY PONCE EXP COSIGNER: URGENCY: STATUS: COMPLETED Please call pt and inform him we will need a new RX for requested med from his prescriber. Thanks /nuzhat PONCE MD Primary Care Physician Signed: 02/14/2024 13:25 Receipt Acknowledged By: 02/14/2024 13:42 /es/ EULALIA BRAXTON RN REGISTERED NURSE ========= --- Original Document --- 02/14/24 OUTPATIENT MEDICATION REQUEST: Medication Request Date of Request: Jan Is this a New Medication? No ==> FENOFIBRATE 145MG TAB TAKE ONE TABLET BY MOUTH ONCE ACTIVE DAILY FOR HIGH CHOLESTEROL REPLACES GEMFIBROZIL The following actions were performed: PACT Team RN and Provider added as additional Signers to this request *Please let patient know that this request may take up to 72 hours to process.* /lynnette/ Laisha Dasilva PharmD Clinical Pharmacy Practitioner Signed: 02/14/2024 12:53 Receipt Acknowledged By: 02/14/2024 13:02 /es/ EULALIA BRAXTON RN REGISTERED NURSE 02/14/2024 13:24 /es/ JORDY PONCE MD Primary Care Physician 02/14/2024 13:25 /es/ KALYAN BROWN LPN PACT 10 02/14/2024 ADDENDUM STATUS: COMPLETED Electrocardiograph Operator left a vaoice mail letting Vet know he will need a new script faxed to the [place] in order to fill. /lynnette/ KALYAN BROWN LPN PACT 10 Signed: 02/14/2024 13:27 JORDY PONCE [place] [facility] [facility] Feb 14, 2024 12:52 PM MEDICATION MGT NOT E: LOCAL TITLE: OUTPATIENT MEDICATION REQUEST STANDARD TITLE: MEDICATION MGT NOTE DATE OF NOTE: FEB 14, 2024@12:52 ENTRY DATE: FEB 14, 2024@12:53 AUTHOR: LAISHA DASILVA EXP COSIGNER: URGENCY: STATUS: COMPLETED OUTPATIENT MEDICATION REQUEST Has ADDENDA Medication Request Date of Request: Jan Is this a New Medication? No ==> FENOFIBRATE 145MG TAB TAKE ONE TABLET BY MOUTH ONCE ACTIVE DAILY FOR HIGH CHOLESTEROL REPLACES GEMFIBROZIL The following actions were performed: PACT Team RN and Provider added as additional Signers to this request *Please let patient know that this request may take up to 72 hours to process.* /lynnette/ Laisha Dasilva PharmD Clinical Pharmacy Practitioner Signed: 02/14/2024 12:53 Receipt Acknowledged By: 02/14/2024 13:02 /lynnette/ EULALIA BRAXTON RN REGISTERED NURSE 02/14/2024 13:24 /lynnette/ JORDY PONCE MD Primary Care Physician 02/14/2024 13:25 /lynnette/ KALYAN BROWN LPN PACT 10 02/14/2024 ADDENDUM STATUS: COMPLETED Please call pt and inform him we will need a new RX for requested med from his prescriber. Thanks /lynnette/ JORDY PONCE MD Primary Care Physician Signed: 02/14/2024 13:25 Receipt Acknowledged By: 02/14/2024 13:42 /lynnette/ EULALIA BRAXTON RN REGISTERED NURSE 02/14/2024 ADDENDUM STATUS: COMPLETED Electrocardiograph Operator left a vaoice mail letting Vet know he will need a new script [facility]ed to the [facility] in order to fill. /lynnette/ KALYAN BROWN LPN PACT 10 Signed: 02/14/2024 13:27 02/17/2024 ADDENDUM STATUS: COMPLETED Electrocardiograph Operator left a second message asking Vet to get a script faxed to the [facility] so we could fill his medicaiton. /lynnette/ KALYAN BROWN LPN PACT 10 Signed: 02/17/2024 13:53 02/20/2024 ADDENDUM STATUS: COMPLETED Adding covering Prescriber for Aj Ruiz. /es/ GABRIEL WALKER [facility] BRINE TANK SEPARATOR OPERATOR Signed: 02/20/2024 15:22 Receipt Acknowledged By: 02/20/2024 15:35 /lynnette/ Marilynn Stack PharmD, BETOS, RICARDO CLOUDN1 [facility] PACT Clinical Pharmacist Practitioner 02/20/2024 ADDENDUM STATUS: COMPLETED Renewed Rx for window medicinal plant picker /lynnette/ Marilynn Stack PharmD, CLINT, RICARDO CLOUDN1 [facility] PACT Clinical Pharmacist Practitioner Signed: 02/20/2024 15:38 LAISHA DASILVA [facility]
--- OUTSIDE RECORDS SUMMARY | 2024-06-05 08:37 | XMS_ITS | Encounter Summary ---
Author Name [facility] [place] [facility] [place] [facility] [place] Address [address] [place] [address] Care Team Providers Care Slots Manager Name Role Phone ROSARIOJORDY Primary Care Provider [...] Workman's Name Patient's Relationship to Policy Workman [facility] (WNR) MEDICARE ADVANTAGE [facility] (WNR) May 30, 2023 [id number] AG CARPENTER PATIENT MEDICAID MEDICAID [facility] May 30, 2017 MEDICAI D [id number] AG CARPENTER PATIENT Selected Encounter This section includes the information on record at [place] for the Encounter. Date/Time Encounter Type Encounter Description Reason Provider Source Nov 15, 2023 01:00 PM MTMS BY PHARM ADDL 15 MIN CLINICAL PHARMACY ICD-10-CM E11.9 Type 2 diabetes mellitus without complications BELIA FLOR [place] Encounter Template Text not used by [place] Assessments - Encounter Diagnoses This section includes the primary and secondary diagnoses documented for the Encounter. Date/Time Primary/Secondary Diagnosis Diagnosis Name Provider Source Nov 15, 2023 01:21 PM PRIMARY Type 2 diabetes mellitus without complications BELIA FLOR [place] Nov 15, 2023 01:21 PM SECONDARY Hyperlipidemia, unspecified BELIA FLOR [place] Plan of Treatment: Future Appointments (+ 6 months) and Future Tests (+/- 45 days) The Plan of Treatment section includes future care activities for the patient from all [place] treatmentfacilities. This section includes future appointments and future orders which are active, pending or scheduled. Future Appointments This section includes appointments that were scheduled to occur 6 months from the date of the Encounter, up to a maximum of 20 appointments. The data comes from all [place] treatment facilities. Appointment Date/Time Appointment Type Appointme nt Facility Name Jan 11, 2024 12:30 PM AMBULATORY - MEDICINE [place] C [facility] Feb 29, 2024 01:00 PM AMBULATORY - PSYCHIATRY [facility] Social History: Smoking Status (Most current) and Tobacco Use (All prior to encounter date) This section includes the most current, and the historical, smoking and tobacco- related health factors from the [place] facility where the Encounter took place. Current Smoking Status This section includes the most current smoking, or tobacco-related health factor, from the [place] facility where the Encounter took place. Date/Time Current Smoking Status Comment Facil ity Jul 13, 2023 12:30 PM VA-TOBACCO FORMER USER [place] Tobacco Use History This section includes a history of the smoking, or tobacco-related health factors, that were collected on or before the date of the Encounter. The data comes from the [place] facility where the Encounter took place. Date/Time Smoking Status/Tobacco Use Comment F acility Jul 13, 2023 12:30 PM VA-TOBACCO QUIT 5 TO < 15 YRS [place] Jul 13, 2022 01:30 PM VA-TOBACCO FORMER USER [place] Jul 13, 2022 01:30 PM VA-TOBACCO QUIT 5 TO < 15 YRS [place] Jun 24, 2021 02:00 PM VA-TOBACCO FORMER USER [place] Jun 24, 2021 02:00 PM VA-TOBACCO QUIT 15 YRS OR MORE [place] October 25, 2018 02:45 PM VA-TOBACCO FORMER USER [place] October 25, 2018 02:45 PM VA-TOBACCO QUIT 5 TO < 15 YRS [place] October 10, 2017 09:12 AM QUIT TOBACCO USE > 7 YEARS AGO [place] Advance Directives: All historical and current Section Date Range: From patient's date of to the date document was created. This section includes ALL of a patient's completed or amended [place] Advance and Rescinded Directives. The entries below indicate that a directive exists for the patient, but an actual copy is not included with this document. The data comes from all [place] facilities. Date Advance Directives Provider Source Jun 15, 2018 ADVANCE DIRECTIVE [facility] Encounter Notes: All associated encounter notes This section contains the clinical notes associated to the Encounter. Date/Time Encounter Note(s) Provider Source Nov 15, 2023 01:18 PM DIABETOLOGY NOTE: LOCAL TITLE: INSULIN PUMP/CGM DOWNLOAD (T) STANDARD TITLE: DIABETOLOGY NOTE DATE OF NOTE: NOV 15, 2023@13:18 ENTRY DATE: NOV 15, 2023@13:18:45 AUTHOR: BELIA FLOR EXP COSIGNER: URGENCY: STATUS: COMPLETED Please select: Personal Continuous Glucose Monitor Date of Documentation:Oct Please see attached scanned document in [facility]. /lynnette/ Belia Flor PharmD Clinical Pharmacist Practitioner Signed: 11/15/2023 13:19 BELIA FLOR [place] Nov 15, 2023 01:15 PM PHARMACY OUTPATIEN T NOTE: LOCAL TITLE: PHARMACY CLINIC NOTE STANDARD TITLE: PHARMACY OUTPATIENT NOTE DATE OF NOTE: NOV 15, 2023@13:15 ENTRY DATE: NOV 15, 2023@13:15:52 AUTHOR: BELIA FLOR EXP ANAHYIGNER: URGENCY: STATUS: COMPLETED Briefly, SAMEER CARPENTER is a 68 year old WHITE MALE referred to the [facility] clinical pharmacist practitioner clinic for comprehensive medication management. Patient's identity was confirmed using at least two indicators. Subjective: He states he is doing well. He had some visits with [facility], which he states have been very helpful. He is tolerating the icosapent ethyl well, which he started after last visit. CURRENT DIABETES MEDICATIONS: - Empagliflozin 25mg/metformin 1000mg SA once daily - Insulin glargine - using 23 units QHS - Glipizide 5mg BID - Trulicity 0.75mg qweekly PREVIOUS DIABETES MEDICATIONS: - GI side effects with metformin > 1000mg/day Medication Adherence: States he rarely misses doses. Tobacco: None since [place] in 2010 Alcohol: 2-3 drinks most weeks, sometimes a little more. Only drinks socially Marijuana/Illicit Drugs: None Typical Diet: Fewer salads lately B: Coffee and PB toast L: Usually skips unless he goes out; [place] or chicken wrap D: Sauce with meatballs (with or without pasta); protein with salad; baked potato Snacks: carrots with ranch; tortilla chips; potato chips; cutting back on ice cream Drinks: Water, coffee Exercise/Activity: -Activities: Walks, rides the bike; hard to do during hot weather -Minutes/week spent doing moderate intensity or greater: a few times per week SMBG: Summary of [place] Report (see [facility] for full report) Date >250 181-250 70-180 <70 <54 Avg Gluc GMI (%) ----(mg/dl) (%) 11/15/23 2% 20% 77% 1% 0% 142 [...] Assessment: DIABETES Diabetes control is at goal. Hgb A1c Goal Fasting/Preprandial BG Goal Bedtime [...] without retinopathy or macular edema OU. Plan: -TLC -Medications reconciled -Otherwise continue current medications EDUCATION -A shared decision-making approach was used in the development of this plan, involving the , clinician, and any caregivers present. The [place] was provided the opportunity express questions or concerns, and the plan was adjusted as needed to address these concerns. -Reviewed with any new medications, changes to the medication list, education, and plan from today's visit. Patient (and/or caregiver) verbalized understanding of the plan, including possible known risks and benefits, and had no additional questions. RTC: 8 weeks Time spent with patient: 30 minutes PharmD tool: XUAN PharmGregoria Pharmacotherapy Rem V12: PHARMACIST INTERVENTIONS: LIPID MANAGEMENT Medication monitoring, no dosage change required, continue to monitor and assess TYPE 2 DIABETES MELLITUS Medication monitoring, no dosage change required, continue to monitor and assess Medication reconciliation (changes to active VA and non-VA medication lists to reconcile differences) No changes to medication lists made (medication review completed, no discrepancies identified) /es/ Belia Flor PharmD Clinical Pharmacist Practitioner Signed: 11/15/2023 15:10 BELIA FLOR [place]
--- OUTSIDE RECORDS SUMMARY | 2024-06-05 08:38 | XMS_ITS | Encounter Summary ---
Author Name [facility] [place] Organization [facility] [place] Address [address] [place] [address] Care Team Providers Care Road Inspector Name Role Phone JORDY PONCE Primary Care [...] Workman's Name Patient's Relationship to Policy [facility] ([facility]) MEDICARE ADVANTAGE [facility] (WNR) May 30, 2023 [id number] AG CARPENTER PATIENT MEDICAID MEDICAID [facility] May 30, 2017 MEDICAI D [id number] AG CARPENTER PATIENT Selected Encounter This section includes the information on record at [place] for the Encounter. Date/Time Encounter Type Encounter Description Reason Pro vider Source Jul 13, 2023 03:53 PM Outpatient Encounter TELEPHONE TRIAGE IHE Encounter Template Text not used by [...] 20 appointments. The data comes from all [place] treatment facilities. Appointment Date/Time Appointment Type Appointme nt Facility Name Aug 10, 2023 01:00 PM AMBULATORY - MEDICINE [place] [facility] Sep 21, 2023 12:30 PM AMBULATORY - MEDICINE [facility] October 17, 2023 01:00 PM AMBULATORY - PSYCHIATRY [facility] Nov 08, 2023 02:30 PM AMBULATORY - MEDICINE [place] [facility] [place] [facility] Nov 09, 2023 01:00 PM AMBULATORY - PSYCHIATRY [facility] Nov 10, 2023 01:00 PM AMBULATORY - MEDICINE [facility] Nov 15, 2023 01:00 PM AMBULATORY - MEDICINE [place] [facility] [place] [facility] Jan 11, 2024 12:30 PM AMBULATORY - MEDICINE [place] [facility] [place] [facility] Lab Results: +/- 30 days of the encounter This section includes the Chemistry and Hematology Lab Results on record with [place] for the patient. Radiology Reports and Pathology Reports are provided separately, in subsequent sections. Lab Results This section contains the Chemistry/Hematology Results that were resulted 30 days before or 30 daysafter the date of the Encounter. Date/Time Source Result Type Result - Unit Interpretation Reference Range Comment Jul 12, 2023 02:27 PM [place] [facility] [place] [facility] MICROALBUMIN CREATININE RATIO PANEL Specimen Type: URINE No comment entered. Ordering Provider: JORDY PONCE Report Released Date/Time: Jul 13, 2022 05:58 AM Reporting Lab: [facility] [place] [facility] [address] [phone] Performing Lab: [place] [facility] [place] [facility] [address] [address] MICROALBUMIN/C REATININE RATIO 64.7 mg/g H 0-29.9 MICROALBUMIN,Q UANTITATIVE 3.8 mg/dL RR UNAVAIL CREATININE URINE 58.70 mg/dL Jul 08, 2023 12:04 PM [place] [facility] [place] [facility] LIPID PANEL FASTING Specimen Type: SERUM No comment entered. Ordering Provider: JORDY PONCE Report Released Date/Time: Jul 13, 2022 05:58 AM Reporting Lab: [facility] [address] [address] Performing Lab: [facility] [address] [address] CHOLESTEROL 178 mg/dL TRIGLYCERIDE 320 mg/dL H 0-150 LDL calculated Reflex to dLD L mg/dL 0-129 CHOL/HDL 5.2 HDL CHOLESTEROL 34 mg/dL L 40-60 LDL DIRECT 106 mg/dL Jul 08, 2023 12:04 PM [facility] LIVER FUNCTION Specimen Type: SERUM No comment entered. Ordering Provider: JORDY PONCE Report Released Date/Time: Jul 13, 2022 05:58 AM Reporting Lab: [facility] [address] [address] Performing Lab: [address] [address] PROTEIN,TOTAL 7.3 g/dL 6.0-8.3 ALBUMIN 3.9 g/dL 3.5-5.0 ALKALINE PHOSPHATASE 39 U/L L 40-150 AST 28 U/L 5-34 ALT 35 U/L BILIRUBIN, TOTAL 0.5 mg/dL 0.2-1.2 Jul 08, 2023 12:04 PM [facility] HEMOGLOBIN A1C PANEL Specimen Type: BLOOD [...] Jul 13, 2022 05:58 AM Reporting Lab: [address] [address] Performing Lab: [address] [address] HEMOGLOBIN A1C 6.5 H 4.0-5.6 Jul 08, 2023 12:04 PM [facility] BASIC METABOLIC PANEL (fasting) Specimen Type: SERUM No comment entered. Ordering Provider: JORDY PONCE Report Released Date/Time: Jul 13, 2022 05:58 AM Reporting Lab: [address] [address] Performing Lab: [address] [address] UREA NITROGEN 26 mg/dL H 7-25 GLUCOSE 131 mg/dL H 65-100 SODIUM 136 mmol/L 135-145 POTASSIUM 4.7 mmol/L 3.5-5.0 CHLORIDE 105 mmol/L 100-110 CO2 21 meq/L 20-30 CREATININE, Serum 1.09 mg/dL 0.50-1.40 eGFR(CKD-EPI 2020) 75 mL/min >60 Jul 08, 2023 12:04 PM [facility] CBC Specimen Type: BLOOD No comment entered. Ordering Provider: JORDY PONCE Report Released Date/Time: Jul 13, 2022 05:58 AM Reporting Lab: [address] [address] Performing Lab: [address] [address] WBC 8.06 10*3/uL 4.50-11.00 RBC 5.82 10*6/uL H 4.23-5.66 HGB 14.6 g/dL 12.8-17 HCT 46.1 39.2-50.4 MCV 79.2 fL L 82-99 MCHC 31.7 g/dL 30.8-35.1 PLT 192 10*3/uL 140-360 RDW-CV 14.3 12.0-16.0 MCH 25.1 pg L 26.2-32.6 Vital Signs: All taken on the encounter date This section contains inpatient and outpatient Vital Signs collected on the date of the Encounter. Date/Time Temperature Pulse Blood Pressure Respiratory Rate SP02 Pain Height Weight Body Mass Index Source Jul 13, 2023 02:00 PM 130/76 [facility] [place] Jul 13, 2023 01:47 PM 80 145/80 96 [facility] Advance Directives: All historical and current Section Date Range: From patient's date of to the date document was created. This section includes ALL of a patient's completed or amended [place] Advance and Rescinded Directives. The entries below indicate that a directive exists for the patient, but an actual copy is not included with this document. The data comes from all [place] facilities. Date Advance Directives Provider Source Jun 15, 2018 ADVANCE DIRECTIVE ROYA ARCE [place] [facility] Encounter Notes: All associated encounter notes This section contains the clinical notes associated to the Encounter. Date/Time Encounter Note(s) Provider Source Jul 13, 2023 03:53 PM RN PROGRESS NOTE: LOCAL TITLE: CCC: CLINICAL TRIAGE STANDARD TITLE: RN PROGRESS NOTE DATE OF NOTE: JUL 13, 2023@15:53:22 ENTRY DATE: JUL 13, 2023@15:53:22 AUTHOR: AUGUSTUS ROSS COSIGNER: URGENCY: STATUS: COMPLETED CCC: CLINICAL TRIAGE Has ADDENDA Patient Demographics Patient Name: SAMEER CARPENTER Patient Primary Address: [address] [place] [id number] Patient Primary Phone: [phone] Patient : 1955 Patient Age: 67 Caller/Recipient Relation to Patient: Self Emergency Contact: GIANA CARPENTER Triage Summary Conducted triage/discussed symptoms Utilized the Triage Tool: Yes Chief Complaint: Vision Change System WHEN: Within 8 Hours Nurse's Recommendation / WHEN: Now System WHERE: Urgent care center Nurse's Recommendation / WHERE: ED Other Patient Disposition Patient/Caregiver agrees to plan of care: No Patient WHEN: Within 8 hours Patient is Urgent or Emergent Nursing Plan and Disposition Referred patient to higher level of care Other course(s) of action Instructed to go to Emergency Room (ER) Generated msg to PACT/Provider Provided guidance for worsening symptoms: *Caller/Patient* advised to call facilities [place] Clinical Contact Center or seek immediate medical attention for new or worsening symptoms Nurse Summary Nurse Summary: SITUATION: STATES THAT HE WANTS TO SEE EYE CLINIC. STATES HE HAS 1 MONTH HISTORY OF HAVING A CLOUDY FILM ON THE L EYE. THIS IS CAUSING BLURRY/HAZY VISION MAKING READING AND DRIVING DIFFICULT. STATES THE SYMPTOMS STARTED OFF TEARING OF THE LEFT EYE THEN THE FILM DEVELOPED. DENIES INJURY. *See [facility] details below for additional +/- signs & symptoms. RN RECOMMENDATION: GIVEN TIME OF DAY AND THE SYMPTOMS DESCRIBED, UPTRIAGED TO ER NOW. HE DECLINED, ASKING TO BE SEEN BY EYE CLINIC INSTEAD. WILL FORWARD TO PACT FOR FURTHER OUT REACH. Clinical Contact Center Codes Clinic/Location: V1 CWM PHONE CCC RN [facility] Triage Complete Triage Note: Phone Triage 13 Jul 2023 20:39:24 +0000 UTC Demographics 67 y/o Male Results CC: Vision Change Software suggested: Within 8 Hours Software suggested follow-up location: Urgent care center, consider virtual care Values and Measures Duration of CC: 1 Months Positive Responses HPI: blurry vision, new HPI: corneal opacification Negative Responses Denies: HPI: diplopia, developed over hours to days Denies: HPI: diplopia, episodic Denies: HPI: diplopia, sudden onset Denies: HPI: eye injury Denies: HPI: eye pain Denies: HPI: eye redness Denies: HPI: vision loss, new /nuzhat ROSS [id number] Signed: 07/13/2023 15:53 Receipt Acknowledged By: 07/13/2023 16:21 /lynnette/ EULALIA BRAXTON RN REGISTERED NURSE 07/13/2023 16:23 /lynnette/ KALYAN BROWN LPN PACT 10 07/13/2023 ADDENDUM STATUS: COMPLETED Spoke with the and he spoke with Optometry and they are trying to get him in to be seen. Advised to go to the ER if any further changes or if Optometry is unable to see sooner. /nuzhat BRAXTON RN REGISTERED NURSE Signed: 07/13/2023 16:22 AUGUSTUS ROSS [facility]
--- OUTSIDE RECORDS SUMMARY | 2024-06-05 08:38 | XMS_ITS ---
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 Date/Time Encounter Type Encounter Description Reason Pro vider Source Jul 13, 2023 01:48 PM Outpatient Encounter PRIMARY CARE/MEDICINE [facility] Encounter Template Text not used by [facility] Plan of Treatment: Future Appointments (+ 6 [...] 20 appointments. The data comes from all [place] treatment facilities. Appointment Date/Time Appointment Type Appointme nt Facility Name Aug 10, 2023 01:00 PM AMBULATORY - MEDICINE [facility] [place] [facility] Sep 21, 2023 12:30 PM AMBULATORY - MEDICINE [facility] [place] [facility] October 17, 2023 01:00 PM AMBULATORY - PSYCHIATRY [facility] Nov 08, 2023 02:30 PM AMBULATORY - MEDICINE [facility] [place] [facility] Nov 09, 2023 01:00 PM AMBULATORY - PSYCHIATRY [facility] Nov 10, 2023 01:00 PM AMBULATORY - MEDICINE [facility] [place] [facility] Nov 15, 2023 01:00 PM AMBULATORY - MEDICINE [facility] [place] [facility] Jan 11, 2024 12:30 PM AMBULATORY - MEDICINE [facility] [place] [facility] Lab Results: +/- 30 days of the encounter This section includes the Chemistry and Hematology Lab Results on record with [facility] for the patient. Radiology Reports and Pathology Reports are provided separately, in subsequent sections. Lab Results This section contains the Chemistry/Hematology Results that were resulted 30 days before or 30 daysafter the date of the Encounter. Date/Time Source Result Type Result - Unit Interpretation Reference Range Comment Jul 12, 2023 02:27 PM [facility] [place] [facility] MICROALBUMIN CREATININE RATIO PANEL Specimen Type: URINE No comment entered. Ordering Provider: JORDY PONCE Report Released Date/Time: Jul 13, 2022 05:58 AM Reporting Lab: [facility] [place] [facility] [address] [address] Performing Lab: [facility] [place] [facility] [address] [address] [address] MICROALBUMIN/C REATININE RATIO 64.7 mg/g H 0-29.9 MICROALBUMIN,Q UANTITATIVE 3.8 mg/dL RR UNAVAIL CREATININE URINE 58.70 mg/dL Jul 08, 2023 12:04 PM [facility] [place] [facility] LIPID PANEL FASTING Specimen Type: SERUM No comment entered. Ordering Provider: JORDY PONCE Report Released Date/Time: Jul 13, 2022 05:58 AM Reporting Lab: [facility] [address] [address] Performing Lab: [facility] [address] [address] CHOLESTEROL 178 mg/dL TRIGLYCERIDE 320 mg/dL H 0-150 LDL calculated Reflex to dLD L mg/dL 0-129 CHOL/HDL 5.2 HDL CHOLESTEROL 34 mg/dL L 40-60 LDL DIRECT 106 mg/dL Jul 08, 2023 12:04 PM [facility] LIVER FUNCTION Specimen Type: SERUM No comment entered. Ordering Provider: JORDY PONCE Report Released Date/Time: Jul 13, 2022 05:58 AM Reporting Lab: [facility] [address] [address] [address] Performing Lab: [address] [address] PROTEIN,TOTAL 7.3 g/dL 6.0-8.3 ALBUMIN 3.9 g/dL 3.5-5.0 ALKALINE PHOSPHATASE 39 U/L L 40-150 AST 28 U/L 5-34 ALT 35 U/L BILIRUBIN, TOTAL 0.5 mg/dL 0.2-1.2 Jul 08, 2023 12:04 PM [facility] HEMOGLOBIN A1C PANEL Specimen Type: BLOOD [...] Jul 13, 2022 05:58 AM Reporting Lab: [facility] [address] [address] Performing Lab: [address] [address] HEMOGLOBIN A1C 6.5 H 4.0-5.6 Jul 08, 2023 12:04 PM [facility] BASIC METABOLIC PANEL (fasting) Specimen Type: SERUM No comment entered. Ordering Provider: JORDY PONCE Report Released Date/Time: Jul 13, 2022 05:58 AM Reporting Lab: [address] [address] Performing Lab: [address] [address] UREA NITROGEN 26 mg/dL H 7-25 GLUCOSE 131 mg/dL H 65-100 SODIUM 136 mmol/L 135-145 POTASSIUM 4.7 mmol/L 3.5-5.0 CHLORIDE 105 mmol/L 100-110 CO2 21 meq/L 20-30 CREATININE, Serum 1.09 mg/dL 0.50-1.40 eGFR(CKD-EPI 2020) 75 mL/min >60 Jul 08, 2023 12:04 PM [facility] CBC Specimen Type: BLOOD No comment entered. Ordering Provider: JORDY PONCE Report Released Date/Time: Jul 13, 2022 05:58 AM Reporting Lab: [address] [address] Performing Lab: [address] [address] WBC 8.06 10*3/uL 4.50-11.00 RBC 5.82 10*6/uL [...] Source Jul 13, 2023 02:00 PM 130/76 [facility] Jul 13, 2023 01:47 PM 80 145/80 [facility] Advance Directives: All historical and current Section Date Range: From patient's date of to the date document was created. This section includes ALL of a patient's completed or amended [place] Advance and Rescinded Directives. The entries below indicate that a directive exists for the patient, but an actual copy is not included with this document. The data comes from all [place] facilities. Date Advance Directives Provider Source Jun 15, 2018 ADVANCE DIRECTIVE ROYA ARCE [employer] Encounter Notes: All associated encounter notes This section contains the clinical notes associated to the Encounter. Date/Time Encounter Note(s) Provider Source Jul 13, 2023 01:48 PM PREVENTIVE MEDICIN E NURSING NOTE: LOCAL TITLE: CLINICAL REMINDERS/NURSING STANDARD TITLE: PREVENTIVE MEDICINE NURSING NOTE DATE OF NOTE: JUL 13, 2023@13:48 ENTRY DATE: JUL 13, 2023@13:48:19 AUTHOR: EULALIA BRAXTON COSIGNER: URGENCY: STATUS: COMPLETED Advance Directive Screen MH AD: Patient has an Advance Directive on file at this [facility]. No updates are needed at this time. The patient received education about Advance Directives and written notification of his/her rights. Homelessness/Food Insecurity Screen: In the past 2 months, have you been living in stable housing that you own, rent, or stay in as part of a household? Yes - Living in stable housing. Are you worried or concerned that in the next 2 months you may NOT have stable housing that you own, rent, or stay in as part of a household? No - Not worried about housing near future The reports the following: Within the past 12 months, you worried whether your food would run out before you got money to buy more. Never true Within the past 12 months, the food you bought just didn't last and you didn't have money to get more. Never true Depression Screening: Perform PHQ-2 A PHQ-2 screen was performed. The score was 0 which is a negative screen for depression. Over the past two weeks, how often have you been bothered by the following problems? 1. Little interest or pleasure in doing things Not at all 2. Feeling down, depressed, or hopeless Not at all Pneumococcal Conjugate Vaccine (PCV15/PCV20): The patient may have been vaccinated in the past but written documentation of vaccination is not available today. Patient instructed to obtain a written record of the prior vaccine and bring it to the next appointment. PTSD Screening: PC-PTSD-5 A PTSD screening test (PC-PTSD-5) was negative (score=0). IN THE PAST MONTH, have you ever had any experience that was so frightening, horrible or traumatic. For example: A serious accident or fire a physical or sexual assault or abuse An earthquake or flood A war Seeing someone be killed or seriously injured Having a loved one through homicide or suicide 1. Have you ever experienced this kind of event? NO 2. Had nightmares about the event(s) or thought about the event(s) when you did not want to? Response not required due to responses to other questions. 3. Tried hard not to think about the event(s) or went out of your way to avoid situations that reminded you of the event(s)? Response not required due to responses to other questions. 4. Been constantly on guard, watchful, or easily startled? Response not required due to responses to other questions. 5. [place] numb or detached from people, activities, or your surroundings? Response not required due to responses to other questions. 6. [place] guilty or unable to stop blaming yourself or others for the event(s) or any problems the event(s) may have caused? Response not required due to responses to other questions. Influenza Immunization: The patient has received the seasonal influenza vaccine for the current season at another location. Documented: INFLUENZA, UNSPECIFIED FORMULATION Historical Date Administered: 2023 Exact date unknown Information Source: FROM OTHER PROVIDER COVID-19 Immunization: Refused Moderna Monovalent COVID-19 vaccine Immunization: COVID-19 (MODERNA), MRNA, LNP-S, PF, 50 MCG/0.5 ML (AGES 12+ YEARS) Refusal Reason: PATIENT DECISION Patient refuses all immunization(s) in the COVID-19 group Date Documented: 07/13/23 13:54 HTN Assess for Elevated BP>=140/90: Herpes Zoster (Shingles) Vaccine: Prior Herpes Zoster vaccination The patient has been vaccinated in the past but written documentation of vaccination is not available today. Patient instructed to obtain a written record of the prior vaccine and bring it to the next appointment. RHS Screen: RHS Screen Session Format: Face to Face Environmental Check Upon inquiry, the individual reports that the environment is safe to proceed. Informed Consent to Screen and Document The individual consents to proceed with screening. The individual consents to documentation of responses. PRIMARY SCREEN: In the past 12 months, how often did a current or former intimate partner (e.g., boyfriend, girlfriend, , , sexual partner): 1. Scream or curse at you Never 2. Insult or talk down to you Never 3. Threaten you with harm Never 4. Physically hurt you Never 5. Force or pressure you to have sexual contact against your will, or when you were unable to say no Never ?? The HITS tool (items 1-4 above) is [place] copyright protected by Hill Boyer MD, and the user has full rights to use it throughout the [place] system. PRIMARY SCREEN RESULT: The Primary Screen is NEGATIVE. The individual answered never to all forms of IPV above (i.e., answered never to all 5 items) The individual accepts education and/or resources: Yes - Offered verbal universal education about IPV EDUCATION: The individual indicated readiness to learn. Education offered during this session as noted above. The individual indicated understanding by asking relevant questions and making appropriate comments. No barriers to learning were observed or identified. PAVE Foot Check: Patient refused limb care exam. : will see Podiatry The patient was advised the [place] mandates all patients with diabetes mellitus, end stage renal disease, peripheral vascular disease, or sensory neuropathy should have a complete foot check completed annually. This includes a visual exam of the skin, pedal pulses and a sensory exam. Patients with any abnormality noted during the foot check should be referred to a specialist. /lynnette/ EULALIA BRAXTON RN REGISTERED NURSE Signed: 07/13/2023 13:57 EULALIA BRAXTON
--- OUTSIDE RECORDS SUMMARY | 2024-06-05 08:38 | XMS_ITS | Encounter Summary ---
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 Date/Time Encounter Type Encounter Description Reason Provider Source Jul 13, 2023 12:30 PM MTMS BY PHARM ADDL 15 MIN CLINICAL PHARMACY ICD-10-CM E11.9 Type 2 diabetes mellitus without complications BELIA FLOR Keshia Encounter Template Text not used by [place] Assessments - Encounter Diagnoses This section includes the primary and secondary diagnoses documented for the Encounter. Date/Time Primary/Secondary Diagnosis Diagnosis Name Provider Source Jul 13, 2023 01:33 PM PRIMARY Type 2 diabetes mellitus without complications BELIA FLOR Plan of Treatment: Future Appointments (+ 6 months) and Future Tests (+/- 45 days) The Plan of Treatment section includes future care activities for the patient [facility] This section includes future appointments and future orders which are active, pending or scheduled. Future Appointments This section includes appointments that were scheduled to occur 6 months from the date of the Encounter, up to a maximum of 20 appointments. The data comes from all [facility]. Appointment Date/Time Appointment Type Appointme nt Facility Name Aug 10, 2023 01:00 PM AMBULATORY - MEDICINE [facility] [place] [facility] Sep 21, 2023 12:30 PM AMBULATORY - MEDICINE [facility] [place] [facility] October 17, 2023 01:00 PM AMBULATORY - PSYCHIATRY [facility] Nov 08, 2023 02:30 PM AMBULATORY - MEDICINE [facility] [place] [facility] Nov 09, 2023 01:00 PM AMBULATORY - PSYCHIATRY [facility] Nov 10, 2023 01:00 PM AMBULATORY - MEDICINE [facility] [place] [facility] Nov 15, 2023 01:00 PM AMBULATORY - MEDICINE [facility] [place] [facility] Jan 11, 2024 12:30 PM [facility] Lab Results: +/- 30 days of the encounter This section includes the Chemistry and Hematology Lab Results on record with [place] for the patient. Radiology Reports and Pathology Reports are provided separately, in subsequent sections. Lab Results This section contains the Chemistry/Hematology Results that were resulted 30 days before or 30 daysafter the date of the Encounter. Date/Time Source Result Type Result - Unit Interpretation Reference Range Comment Jul 12, 2023 02:27 PM [facility] MICROALBUMIN CREATININE RATIO PANEL Specimen Type: URINE No comment entered. Ordering Provider: JORDY PONCE Report Released Date/Time: Jul 13, 2022 05:58 AM Reporting Lab: [facility] [address] [facility] [facility] [address] Performing Lab: [facility] [address] [facility] [address] MICROALBUMIN/C REATININE RATIO 64.7 mg/g H 0-29.9 MICROALBUMIN,Q UANTITATIVE 3.8 mg/dL RR UNAVAIL CREATININE URINE 58.70 mg/dL Jul 08, 2023 12:04 PM [facility] LIPID PANEL FASTING Specimen Type: SERUM No comment entered. Ordering Provider: JORDY PONCE Report Released Date/Time: Jul 13, 2022 05:58 AM Reporting Lab: [address] [address] Performing Lab: [address] [address] CHOLESTEROL 178 mg/dL TRIGLYCERIDE 320 mg/dL H 0-150 LDL calculated Reflex to dLD L mg/dL 0-129 CHOL/HDL 5.2 HDL CHOLESTEROL 34 mg/dL L 40-60 LDL DIRECT 106 mg/dL Jul 08, 2023 12:04 PM [facility] LIVER FUNCTION Specimen Type: SERUM No comment entered. Ordering Provider: JORDY PONCE Report Released Date/Time: Jul 13, 2022 05:58 AM Reporting Lab: [address] [address] Performing Lab: [address] [address] PROTEIN,TOTAL 7.3 g/dL 6.0-8.3 ALBUMIN 3.9 g/dL 3.5-5.0 ALKALINE PHOSPHATASE 39 U/L L 40-150 AST 28 U/L 5-34 ALT 35 U/L BILIRUBIN, TOTAL 0.5 mg/dL 0.2-1.2 Jul 08, 2023 12:04 PM [facility] HEMOGLOBIN A1C PANEL Specimen Type: BLOOD [...] Jul 13, 2022 05:58 AM Reporting Lab: [address] [place] [address] Performing Lab: [address] [address] HEMOGLOBIN A1C 6.5 H 4.0-5.6 Jul 08, 2023 12:04 PM [facility] BASIC METABOLIC PANEL (fasting) Specimen Type: SERUM No comment entered. Ordering Provider: JORDY PONCE Report Released Date/Time: Jul 13, 2022 05:58 AM Reporting Lab: [address] [address] Performing Lab: [address] [address] UREA NITROGEN 26 mg/dL H 7-25 GLUCOSE 131 mg/dL H 65-100 SODIUM 136 mmol/L 135-145 POTASSIUM 4.7 mmol/L 3.5-5.0 CHLORIDE 105 mmol/L 100-110 CO2 21 meq/L 20-30 CREATININE, Serum 1.09 mg/dL 0.50-1.40 eGFR(CKD-EPI 2020) 75 mL/min >60 Jul 08, 2023 12:04 PM [facility] CBC Specimen Type: BLOOD No comment entered. Ordering Provider: JORDY PONCE Report Released Date/Time: Jul 13, 2022 05:58 AM Reporting Lab: [address] [address] Performing Lab: [address] [address] WBC 8.06 10*3/uL 4.50-11.00 RBC 5.82 10*6/uL [...] and tobacco- related health factors from the [place] facility where the Encounter took place. Current Smoking Status This section includes the most current smoking, or tobacco-related health factor, from the [place] facility where the Encounter took place. Date/Time Current Smoking Status Comment Mg schultzy Jul 13, 2023 12:30 PM VA-TOBACCO FORMER USER [place] Tobacco Use History This section includes a history of the smoking, or tobacco-related health factors, that were collected on or before the date of the Encounter. The data comes from the [facility] where the Encounter took place. Date/Time Smoking Status/Tobacco Use Comment F acility Jul 13, 2023 12:30 PM VA-TOBACCO QUIT 5 TO < 15 YRS [place] Jul 13, 2022 01:30 PM VA-TOBACCO FORMER USER [place] Jul 13, 2022 01:30 PM VA-TOBACCO QUIT 5 TO < 15 YRS [place] Jun 24, 2021 02:00 PM VA-TOBACCO FORMER USER [place] Jun 24, 2021 02:00 PM VA-TOBACCO QUIT 15 YRS OR MORE [place] October 25, 2018 02:45 PM VA-TOBACCO FORMER USER [place] October 25, 2018 02:45 PM VA-TOBACCO QUIT 5 TO < 15 YRS [place] October 10, 2017 09:12 AM QUIT TOBACCO USE > 7 YEARS AGO [place] Advance Directives: All historical and current Section Date Range: From patient's date of to the date document was created. This section includes ALL of a patient's completed or amended [place] Advance and Rescinded Directives. The entries below indicate that a directive exists for the patient, but an actual copy is not included with this document. The data comes from all [facility]. Date Advance Directives Provider Source Jun 15, 2018 ADVANCE DIRECTIVE ROYA ARCE [facility] Encounter Notes: All associated encounter notes This section contains the clinical notes associated to the Encounter. Date/Time Encounter Note(s) Provider Source Jul 13, 2023 01:36 PM DIABETOLOGY NOTE: LOCAL TITLE: INSULIN PUMP/CGM DOWNLOAD (T) STANDARD TITLE: DIABETOLOGY NOTE DATE OF NOTE: JUL 13, 2023@13:36 ENTRY DATE: JUL 13, 2023@13:36:07 AUTHOR: BELIA FLOR EXP COSIGNER: URGENCY: STATUS: COMPLETED Please select: Personal Continuous Glucose Monitor - Lamar 3 Date of Documentation:Jun Please see attached scanned document in [facility]. 2 documents. One covering the period of 06/16-06/29/23 and one covering 06/30/23- 07/13/23 /lynnette/ Belia Flor PharmD Clinical Pharmacist Practitioner Signed: 07/13/2023 13:37 BELIA FLOR [place] Jul 13, 2023 12:50 PM PHARMACY OUTPATIEN T NOTE: LOCAL TITLE: PHARMACY CLINIC NOTE STANDARD TITLE: PHARMACY OUTPATIENT NOTE DATE OF NOTE: JUL 13, 2023@12:50 ENTRY DATE: JUL 13, 2023@12:51:07 AUTHOR: BELIA FLOR EXP COSIGNER: URGENCY: STATUS: COMPLETED Briefly, CARPENTERSAMEER is a 67 year old WHITE MALE [place] referred to the [facility] clinical pharmacist practitioner clinic for comprehensive medication management. Patient's identity was confirmed using at least two indicators. Subjective: CURRENT DIABETES MEDICATIONS: - Empagliflozin 25mg/metformin 1000mg SA once daily - recently changed from separate pills - Insulin glargine - using 30 units QHS - Glipizide 5mg BID - might have been taking some 10mg, he is not sure - Trulicity 0.75mg qweekly PREVIOUS DIABETES MEDICATIONS: - GI side effects with metformin > 1000mg/day Medication Adherence: States he is quite adherent to this Tobacco: None since [place] in 2010 Alcohol: 2-3 drinks most weeks, sometimes a little more. Only drinks socially Marijuana/Illicit Drugs: None Typical Diet: 2 weeks ago started eating pasta, sausage, fewer salads B: Coffee and PB toast L: Usually skips unless he goes out; [place] or chicken wrap D: Sauce with meatballs (with or without pasta); protein with salad; baked potato Snacks: carrots with ranch; tortilla chips; potato chips; cutting back on ice cream Drinks: Water, coffee Exercise/Activity: No recent changes -Activities: 2 walks per week - about 1.5 mile -Minutes/week spent doing moderate intensity or greater: 60-90 minutes SMBG: Summary of [facility] Report (see [facility] for full report) Date >250 181-250 70-180 <70 <54 Avg Gluc GMI (%) ----(mg/dl) (%) 07/13/23 14% 29% 57% 0% 0% 179 7.6% 06/29/23 1% 10% 84% 5% 0% 119 6.2 05/31/23 1% 19% 80% 0% 0% 140 6.7% Hypoglycemia: had frequent overnight episodes in the 2 weeks 06/16-06/29, virtually none in the time period 06/30-07/13. Objectives: Vitals SVSO - Vital Select Outpat. Measurement DT TEMP RESP PULSE POx BP F(C) (L/MIN)(%) 02/15/2023 13:19 75 96 125/74 Labs: HEMOGLOBIN A1C TREND Collection DT Spec [...] (including Supplies): Active Outpatient Medications Status 1) ACCU-CHEK GUIDE (GLUCOSE) [...] 2 DIABETES MELLITUS 6) GLUCOSE SENSOR FREESTYLE LAMAR 3 USE 1 [...] BLOOD PRESSURE/HEART Inactive Outpatient Medications Status 1) MEDICATION DISPOSAL PATIENT PKT USE 1 ENVELOPE DIRECTED ONE TIME TO DISPOSE OF UNUSED MEDICATIONS Active Non-VA Medications Status 1) Non-VA ASPIRIN 81MG EC TAB 81MG BY MOUTH DAILY ACTIVE 2) Non-VA DULAGLUTIDE 0.75MG/0.5ML INJ PEN 0.75MG ACTIVE SUBCUTANEOUSLY ONCE A WEEK 3) Non-VA INSULIN,GLARGINE,HUMAN 100 UNIT/ML INJ 30 ACTIVE UNITS SUBCUTANEOUSLY AT BEDTIME 4) Non-VA METOPROLOL SUCCINATE 25MG SA TAB 25MG BY MOUTH ACTIVE AT BEDTIME 5) Non-VA MULTIVITAMIN/MINERALS CAP/TAB 1 TABLET BY ACTIVE MOUTH ONCE DAILY 6) Non-VA VENLAFAXINE HCL 75MG TAB 75MG BY MOUTH ONCE ACTIVE DAILY 16 Total Medications Remote Medications: No Active Remote Medications for this patient Allergy Assessment: Patient has answered NKA Assessment: DIABETES Diabetes control is at goal based on most recent A1c. Most recent 2 weeks period saw elevated BG readings, but the prior two week period saw frequent hypoglycemic episodes overnight with very tight glucose control. [place] would like to work on diet and to reduce carbs/red meats and instead eat more salads with leaner proteins. Once switching to that diet, will reduce insulin dose to avoid overnight lows. He prefers 4 week follow-up over anything shorter, but he will contact clinic if having frequent hypoglycemia or excessive hperglycemia. Hgb A1c Goal Fasting/Preprandial BG Goal Bedtime [...] without retinopathy or macular edema OU. Plan: -TLC, diet changes -When diet changes occur, reduce insulin glargine to 25 units once daily -Reviewed hypoglycemia symptoms and treatment -Medications reconciled -Otherwise continue current medications EDUCATION -A shared decision-making approach was used in the development of this plan, involving the [place], clinician, and any caregivers present. The [place] was provided the opportunity express questions or concerns, and the plan was adjusted as needed to address these concerns. -Reviewed with any new medications, changes to the medication list, education, and plan from today's visit. Patient (and/or caregiver) verbalized understanding of the plan, including possible known risks and benefits, and had no additional questions. RTC: 4 weeks Time spent with patient: 45 minutes PharmD tool: PBM PharmD Pharmacotherapy Rem V12: PHARMACIST INTERVENTIONS: TYPE 2 DIABETES MELLITUS Medication Intervention(s) Adjust dose or frequency of current medication due to hypoglycemia Adjust dose or frequency of current medication due to other reason Medication reconciliation (changes to active VA and non-VA medication lists to reconcile differences) No changes to medication lists made (medication review completed, no discrepancies identified) Suicide Screen: C-SSRS Screening Hill-Suicide Severity Rating Scale (C-SSRS Screener) 1. Over the past month, have you wished you were or wished you could go to sleep and not wake up? No 2. Over the past month, have you had any actual thoughts of killing yourself? No 3. Over the past month, have you been thinking about how you might do this? Response not required due to responses to other questions. 4. Over the past month, have you had these thoughts and had some intention of acting on them? Response not required due to responses to other questions. 5. Over the past month, have you started to work out or worked out the details of how to kill yourself? Response not required due to responses to other questions. 6. If yes, at any time in the past month did you intend to carry out this plan? Response not required due to responses to other questions. 7. In your lifetime, have you ever done anything, started to do anything, or prepared to do anything to end your life (for example, collected pills, obtained a gun, gave away valuables, went to the roof but didn't jump)? No 8. If YES, was this within the past 3 months? Response not required due to responses to other questions. Alcohol Use Screen (AUDIT-C): Alcohol Screen: SCREEN FOR ALCOHOL (AUDIT-C) An alcohol screening test (AUDIT-C) was negative (score=3). 1. How often did you have a drink containing alcohol in the past year? Consider a drink to be a 12 ounce can or bottle of regular beer, 8 ounces of malt liquor, a 5 ounce glass of table wine, or a 1.5 ounce shot of liquor (like scotch, gin, or vodka). Two to four times a month 2. How many drinks containing alcohol did you have on a typical day when you were drinking in the past year? Three or four drinks 3. How often did you have six or more drinks on one occasion in the past year? Never Tobacco Use Screening: The patient is a former tobacco user. The patient quit five to less than fifteen years ago. Sexual Orientation: The patient thinks of their sexual orientation as: Straight or Heterosexual /es/ Belia Flor PharmD Clinical Pharmacist Practitioner Signed: 07/13/2023 13:35 BELIA FLORFIELD
[2024-06-05 08:48] LABS: MANUAL DIFF FLAG NO
[2024-06-05 08:56] LABS: Basophils Absolute Auto 0.1 X10*3/uL (0.0-0.2); Basophils Percent Auto 0.6 % (0-2); Eosinophils Absolute Auto 0.5 X10*3/uL (0.0-0.4); Hematocrit 45.6 % (42.0-52.0); Hemoglobin 14.5 g/dl (14.0-18.0); Imm Gran Abs Auto 0.08 X10*3/uL (0.00-0.03); Imm Gran Pct Auto 0.9 % (0.0-0.4); Lymphocytes Absolute Auto 2.5 X10*3/uL (1.2-4.9); Lymphocytes Percent Auto 29.7 % (20-40); Mean Corpuscular HGB Conc 31.8 g/dl (31.0-36.0); Mean Corpuscular Volume 78.8 fL (80.0-98.0); Mean Platelet Volume 8.9 fL (9.4-12.4); Monocytes Absolute Auto 0.8 X10*3/uL (0.1-1.2); Monocytes Percent Auto 9.7 % (2-11); Neutrophils Absolute Auto 4.5 x10*3/uL (2.0-8.3); Neutrophils Percent Auto 53.1 % (45-73); Platelet Count 199 X10*3/uL (160-400); Red Blood Count 5.79 X10*6/uL (4.60-5.80); Red Cell Distribution Width 14.2 % (11.0-16.0); White Blood Count 8.4 X10*3/uL (4.8-10.8)
[2024-06-05 09:07] LABS: Estimated Average Glucose 148 mg/dL; Hemoglobin A1C 187.3396 umol/L; Hemoglobin A1c % 6.8 % (<6.0); Total Hemoglobin (HGBA1C) 3725.9403 umol/L
[2024-06-05 09:35] LABS: Alanine Aminotransferase 37 U/L (0-40); Albumin Level 3.8 g/dL (3.5-5.0); Alkaline Phosphatase 42 U/L (39-117); Anion Gap 13 (12-20); Aspartate Amino Transferase 37 U/L (5-37); Bilirubin Total 0.4 mg/dL (0.0-1.0); Blood Urea Nitrogen 16 mg/dL (9-16); Calcium 9.2 mg/dL (8.4-10.2); Carbon Dioxide 23 mmol/L (22-29); Chloride 108 mmol/L (96-108); Cholesterol 136 mg/dL (<200); Estimated Glomerular Filt Rate > 60; Glucose Fasting 97 mg/dL (60-99); HDL Cholesterol 28 mg/dL (>40); LDL Cholesterol Calculated 61 mg/dL (<100); Potassium 4.4 mmol/L (3.3-5.1); Sodium 140 mmol/L (135-145); Total Protein 7.2 g/dL (6.5-8.0); Triglycerides 238 mg/dL (<150)
[2024-06-05 09:44] LABS: Appearance Urine Clear; Color Urine Yellow; Glucose Urine UA >=1000 mg/dL (Negative); Leukocyte Esterase Urine Negative (Negative); Nitrite Urine Negative (Negative); PH 5.5 (5.0-9.0); Specific Gravity - Urine 1.025 (1.005-1.025); UMIC TRIGGER UA YES; Urine Blood Negative (Negative); Urine Ketones Negative (Negative); Urine Protein Negative (Neg-Trace)
[2024-06-05 09:47] LABS: Prostate Specific Antigen 0.51 ng/mL (<0.05-4.0)
[2024-06-05 09:51] LABS: Bacteria Urine None Seen (None Seen); Hyaline Casts Urine 0-2 /LPF (0-2); RBC Urine 0-2 /HPF (0-2); Squamous Epithelial Cell Urine 0-2 /HPF (0-2); WBC Urine 0-5 /HPF (0-5)
[2024-06-05 10:25] LABS: Creatinine Urine 77.61 mg/dL; Microalbum/Creatinine Ratio Ur 56.6 ug/mg cr (<30)
== END 2024-06-05 08:25 | disposition home or self-care (01) ==
LOC: HO.LAB 08:24
PROVIDERS: PCP Internal Medicine; Visit Provider Internal Medicine
DX: E11.9 Type 2 diabetes mellitus without complications (principal); Z79.4 Long term (current) use of insulin; G47.33 Obstructive sleep apnea (adult) (pediatric); I10 Essential (primary) hypertension; E78.00 Pure hypercholesterolemia, unspecified; Z12.5 Encounter for screening for malignant neoplasm of prostate
CPT/HCPCS: 36415; 80053; 80061; 81001; 82043; 82570; 83036; 84153; 85025

== ENCOUNTER 2024-09-27 13:07 | Outpatient (AMB) | payer MEDICARE, SELFPAY ==
--- NOTE | 2024-09-27 13:22 | A.OFFPC_ITS ---
Vital Signs 09/27/24 13:25 Height 5 ft 8 in Weight 262 lb BMI 39.8 BP 130/76 Respiration 16 Pulse 92 Pulse Source Pulse Oximeter Temp 97.7 F Temp Source Temporal Artery Scan Pulse Oximetry (%) 96 Oxygen Delivery Method Room Air Intake Visit Reasons: Routine - see comments Sports Clerk Required: No Accompanied by: Self / Same As Patient Allergies No Known Allergies [No Known Allergies*] Allergy (Unverified 09/27/24 13:22) Tobacco use date assessed: 09/27/24 Fall risk assessment: No Falls in past year Last assessed Fall Risk: 09/27/24 Dental Screening Dental Screen Date: 09/27/24 Did you have a dental visit in the last 12 months?: No Did you have a dental problem in the last 6 months where you did not have access to dental care?: No Was dental information given to patient?: Patient has dentist HPI HPI Comments History of Present Illness Details 69 year old male with a past medical his tory of diabetes, HTN presenting for follow up. [facility]: Last a1c 6.8% in May. On metformin 1000mg daily, trulicity 0.75mg weekly, jardiance, glipizide, lantus 23 units daily. Using guille 3-sensors through the [facility]. GMI 7.6% CV: on metoprolol, lisinopril, atorvastatin. Blood pressure well controlled. History of [place] medically managed previously following with Dr Beal. Requests referral [facility] [address] [facility] [address] Arriaza. ROS CONSTITUTIONAL: Denies weight loss, fever and chills. HEENT: Denies changes in vision and hearing. RESPIRATORY: Denies SOB and cough. CV: Denies palpitations and CP GI: Denies abdominal pain, nausea, vomiting and diarrhea. : Denies dysuria and urinary frequency. MSK: Denies new myalgia and joint pain. SKIN: Denies rash and pruritus. NEUROLOGICAL: Denies headache PSYCHIATRIC: Denies recent changes in mood. .so PFSH Family History (Updated 09/27/24 @ 13:23 by JIA Oliva) Father No problems noted. Mother No problems noted. Social History (Updated 09/27/24 @ 13:23 by JIA Oliva) Housing: Apartment Alcohol intake: current Alcohol intake frequency: a few times a month Patient Tobacco Use Status: Former Tobacco user service: Yes Current occupational status: retired Cognitive needs: No Hearing needs: No Vision needs: Yes (reading glasses) Questionnaire PHQ-9 Over the last 2 weeks, how often have you been bothered by any of the following problems? 1. Little interest or pleasure in doing things: not at all 2. Feeling down, depressed, or hopeless: not at all 3. Trouble falling or staying asleep, or sleeping too much: not at all 4. Feeling tired or having little energy: not at all 5. Poor appetite or overeating: not at all 6. Feeling bad about yourself - or that you are a failure or have let yourself or your family down: not at all 7. Trouble concentrating on things, such as reading the newspaper or watching television: not at all 8. Moving or speaking so slowly that other people could have noticed. Or the opposite - being so fidgety or restless that you have been moving around a lot more than usual: not at all 9. Thoughts that you would be better off or of hurting yourself in some way: not at all Total score: 0 Source: Developed by Drs. Sergio Louis, Rhianna Holder, Bill Joshi and colleagues, with an educational shabbir from [employer]. Thrive Questionnaire Date Thrive assessed: 09/27/24 I am a: Patient What is your living situation today?: I have a steady place to live Within the past 12 months, did the food you bought not last and you didn't have the money to get more?: Never true Within the past 12 months, did you worry whether your food would run out before you got money to buy more?: Never true Do you have trouble paying for medicines?: No Do you have trouble getting transportation to medical appointments?: No Do you have trouble paying your heating and electricity bill?: No Do you have trouble taking care of your child, family member or friend?: No Do you have trouble with day-to-day activities such as bathing, preparing meals, shopping, managing finances, etc.?: No Are you currently unemployed and looking for a job?: No Are you interested in more education?: No Please select the resources that you would like help with: None THRIVE Score: 0 AUDIT C Alcohol Use Questionnaire (AUDIT-C) 1. How often do you have a drink containing alcohol?: 2-4 times a month 2. How many drinks containing alcohol do you have on a typical day when you are drinking?: 1 or 2 3. How often do you have six or more drinks on one occasion?: Never Total Score: 2 ROYER-7 AMB Questionnaire ROYER-7 Date ROYER - 7 assessed: 09/27/24 Feeling nervous, anxious, or on edge: 0 = Not at all Not being able to stop or control worryin = Not at all Worrying too much about different things: 0 = Not at all Trouble relaxin = Not at all Being so restless that it is hard to sit still: 0 = Not at all Becoming easily annoyed or irritable: 0 = Not at all Feeling afraid as if something awful might happen: 0 = Not at all Total ROYER-7 score (0-4 normal; 5-9 mild; 10-14 moderate; 15-21 severe): 0 Source: Developed by Drs. Sergio Louis, Rhianna Holder, Bill Joshi and colleagues, with an educational shabbir from [employer]. Physical exam (Primary Care) Tobacco/Smoking Status: Tobacco use Status Patient Tobacco Use Status Never used Tobacco 09/27/24 13:23 Coding Level of Care Code New Pt Level 4 (31624) Diagnoses Type 2 diabetes mellitus without complication, without long-term current use of insulin E11.9 Diabetes mellitus type: type 2 Diabetes mellitus mcfp insulin use: without mcfp use Diabetes mellitus complication status: without complication Coronary artery disease involving [place] coronary artery without angina pectoris, unspecified whether [place] or transplanted heart I25.10 Coronary Disease-Associated Artery/Lesion type: [place] artery [place] vs. transplanted heart: unspecified whether [place] or transplanted heart Associated angina: without angina Assessment & Plan Assessment & Plan (1) Diabetes: Code(s): E11.9 - Type 2 diabetes mellitus without complications Category: Medical Qualifiers: Diabetes mellitus type: type 2 Diabetes mellitus mcfp insulin use: without intermediate accountant use Diabetes mellitus complication status: without complication Qualified Code(s): E11.9 - Type 2 diabetes mellitus without complications (2) CAD (coronary artery disease): Code(s): I25.10 - Atherosclerotic heart disease of [place] coronary artery without angina pectoris Category: Medical Qualifiers: Coronary Disease-Associated Artery/Lesion type: [place] artery [place] vs. transplanted heart: unspecified whether [place] or transplanted heart Associated angina: without angina Qualified Code(s): I25.10 - Atherosclerotic heart disease of [place] coronary artery without angina pectoris Plan 69 year old male presenting to [facility] and for diabetes Past medical surgical, social and family history reviewed Diabetes-due for a1C. Last reading at goal. Orders: Orders Comprehensive Met. Panel Today E11.9 - Type 2 diabetes mellitus without complications Hemoglobin A1c 3 Months E11.9 - Type 2 diabetes mellitus without complications, I25.10 - Atherosclerotic heart disease of [place] coronary artery without angina pectoris Hemoglobin A1c Today E11.9 - Type 2 diabetes mellitus without complications Comprehensive Met. 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
[2024-09-27 13:25] VITALS: BP 130/76; PULSE 92; RESP 16; TEMP 36.5; O2SAT 96; BMI 39.8
--- OUTSIDE RECORDS SUMMARY | 2024-09-27 15:32 | XMS_ITS | Continuity of Care Document ---
Author Name [facility] Organization [facility] Care Team Providers Care Advanced Manufacturing Associate Name Role Phone [facility] Unavailable Unavailable Problems Combined list of problems from Department of Defense and Veterans Affairs facilities. It does not include entries that were removed or entered in error. Problem Status Onset Date Problem Type Date of Resolution Comments Source Colonoscopy Screening Active Condition Nov 10, 2017 Entered By: JORDY PONCE Comment: Age 52 - ?polyp - unknown GIJun 08, 2019 Entered By: JORDY PONCE Comment: 06/06/19 one tubular adenoma - [facility] Coronary artery disease Active Condition Nov 10, 2017 Entered By: JORDY PONCE Comment: stable chronic occlusion of the RCANov 10, 2017 Entered By: JORDY PONCE Comment: Dr Wali Beal - [facility] Diabetes Mellitus Type 2 ([facility] [id number]) [facility] History of [place] Active Condition Oct Entered By: JORDY PONCE Comment: 07/13/2010 - followed by Dr Beal [place] [facility] HTN - Hypertension ([facility] [id number]) Active Condition [facility] Hyperlipidemia ([facility] [id number]) Active Condition [facility] Active Condition Nov 10 018 Entered By: JORDY PONCE Comment: Dr Skinny Medina p) [phone] (s) [phone] [facility]esity Active Condition [facility] Obstructive sleep apnea syndrome Active Condition Nov 10, 2017 Entered By: JORDY PONCE Comment: CPAP 14psi [facility] Diagnosis: ICD-10-CM I10 Essential (primary) hypertension Active Diagnosis [facility] Diagnosis: ICD-10-CM F32.A Depression, unspecified Active Diagnosis [facility] Diagnosis: ICD-10-CM E11.9 Type 2 diabetes mellitus without complications Active Diagnosis [facility] Diagnosis: ICD-10-CM I51.9 Heart disease, unspecified Active Diagnosis [facility] Medications Combined list of outpatient medications from Department of Defense and Veterans Affairs facilities.Medications provided include 1) outpatient medications from the last 15 months, and 2) patient-reported medications. Medication Details Route Status Patient Instructions Prescription Expires Prescription Number Last Dispense Date Ordering Provider Order Date Order Qty Source ASPIRIN 81MG TAB,EC TAKE ONE TABLET BY MOUTH DAILY ORAL ACTIVE HELEN PONCE SA 2017 [facility] ATORVASTATI N [place] 40MG TAB TAKE ONE TABLET BY MOUTH ONCE DAILY FOR HIGH CHOLESTE ROL ORAL DISCONT INUED (EDIT) 04/12/2024 [id number] RAI FLOR 2022 90 [facility] ATORVASTATI N [place] 80MG TAB TAKE ONE-HALF TABLET BY MOUTH ONCE DAILY FOR HIGH CHOLESTE ROL ORAL ACTIVE 03/14/2025 [id number] HELEN PNOCE SA 2023 45 [place] DULAGLUTIDE 0.75MG/0.5M L INJ,SOLN,PE N INJECT 0.75MG SUBCUTAN EOUSLY ONCE A WEEK SUBCUT ANEOUS ACTIVE RAI FLOR 2022 [facility] EMPAGLIFLOZ IN 25MG/METFOR MIN 1000MG 24HR TAB,SA TAKE 1 TABLET BY MOUTH ONCE DAILY FOR TYPE 2 DIABETES ORAL ACTIVE 09/05/2025 [id number] JANETH BANGURA 2024 90 [place] EMPAGLIFLOZ IN 25MG/METFOR MIN 1000MG 24HR TAB,SA TAKE 1 TABLET BY MOUTH ONCE DAILY FOR TYPE 2 DIABETES ORAL DISCONT INUED 08/10/2024 [id number] RAI FLOR 2023 90 [place] EMPAGLIFLOZ IN 25MG/METFOR MIN 1000MG 24HR TAB,SA TAKE 1 TABLET BY MOUTH ONCE DAILY FOR TYPE 2 DIABETES ORAL DISCONT INUED (EDIT) 05/31/2024 [id number] RAI FLOR 2023 30 [place] FENOFIBRATE 145MG TAB TAKE ONE TABLET BY MOUTH ONCE DAILY FOR HIGH CHOLESTE ROL REPLACES GEMFIBRO ZIL ORAL ACTIVE 02/20/2025 [id number] KAMIJANETH 2023 90 [place] FENOFIBRATE 145MG TAB TAKE ONE TABLET BY MOUTH ONCE DAILY FOR HIGH CHOLESTE ROL REPLACES GEMFIBRO ZIL ORAL DISCONT INUED 02/16/2024 [id number] RAI FLOR 2022 90 [place] GLIPIZIDE 5MG TAB TAKE ONE TABLET BY MOUTH TWICE DAILY BEFORE A MEAL FOR TYPE 2 DIABETES MELLITUS ORAL ACTIVE 03/14/2025 [id number] HELEN PONCE SA ARLEEN 2023 180 [place] GLIPIZIDE 5MG TAB TAKE ONE TABLET BY MOUTH TWICE DAILY BEFORE A MEAL FOR TYPE 2 DIABETES MELLITUS ORAL DISCONT INUED (EDIT) 05/31/2024 [id number] RAI FLOR 2023 120 [place] ICOSAPENT ETHYL 1GM CAP TAKE TWO CAPSULES BY MOUTH TWICE DAILY FOR CORONARY ARTERY DISEASE WITH FOOD ORAL DISCONT INUED BY PROVIDE R 09/21/2024 [id number] RAI FLOR 2023 120 [place] INSULIN,GLA RGINE-YFGN 100UNIT/ML INJ PEN,3ML INJECT 23 UNITS SUBCUTAN EOUSLY ONCE DAILY SUBCUT ANEOUS ACTIVE RAI FLOR 2023 [place] LISINOPRIL 5MG TAB TAKE ONE TABLET BY MOUTH ONCE DAILY TO CONTROL BLOOD PRESSURE ORAL ACTIVE 03/14/2025 [id number] HELEN PONCE SA ARLEEN 2023 90 [place] LISINOPRIL 5MG TAB TAKE ONE TABLET BY MOUTH ONCE DAILY TO CONTROL BLOOD PRESSURE (FROM DR SKINNY MEDINA) ORAL 02/16/2024 [id number] RAI FLOR BARTOLOME PAREDES 2022 90 [place] METOPROLOL SUCCINATE 100MG TAB,SA TAKE ONE TABLET BY MOUTH ONCE DAILY FOR HIGH BLOOD PRESSURE ORAL ACTIVE 03/16/2025 [id number] HELEN PONCE SA 2023 90 [place] METOPROLOL SUCCINATE 100MG TAB,SA TAKE ONE TABLET BY MOUTH ONCE DAILY FOR CHRONIC HEART FAILURE FOR BLOOD PRESSURE /HEART ORAL 01/01/2024 [id number] LEE MAURO COY 2022 90 [place] MULTIVITAMI NS W/MINERALS TAB TAKE ONE TABLET BY MOUTH ONCE DAILY ORAL ACTIVE RAI FLOR BARTOLOME REGGIE 2022 [place] VENLAFAXINE HCL 75MG TAB TAKE TWO TABLETS BY MOUTH ONCE DAILY ORAL ACTIVE HELEN PONCE SA [place] Immunizations Combined list of available immunizations from the Department of Defense and Veterans Affairs facilities. Immunization Series Date Given Administered By Site Reaction Lot Number CVX Code Drug Hyperion Administrator Status Comments Source INFLUENZA, UNSPECIFIED FORMULATION 2023 88 complet ed HISTORICA L INFORMATI ON - [facility] COVID-19 ([employer]), MRNA, LNP-S, BIVALENT BOOSTER, PF, 30 MCG/0.3 ML DOSE 3 2021 300 complet ed HISTORICA L INFORMATI ON - SOURCE UNSPECIFI ED, [facility] INFLUENZA, UNSPECIFIED FORMULATION 2021 88 complet ed HISTORICA L INFORMATI ON - SOURCE UNSPECIFI ED, [facility] COVID-19 ([employer]), MRNA, LNP-S, PF, 30 MCG/0.3 ML DOSE 2 2020 208 complet ed PFR; [id number]; 1 [facility] ([employer]), MRNA, LNP-S, PF, 30 MCG/0.3 ML DOSE 1 2020 208 complet ed PFR; [id number]; 1 [facility] INFLUENZA, INJECTABLE, QUADRIVALENT, PRESERVATIVE FREE 2018 150 complet ed Site: Left Deltoid [place] INFLUENZA, INJECTABLE, QUADRIVALENT 2018 158 complet ed Site: Left Deltoid [place] TDAP 2018 115 complet ed Site: Right Deltoid [place] Results Combined list of recent chemistry, hematology and other laboratory results from Department of Defense and Veterans Affairs, ranging from 15 months to all on record, depending upon the facility. Order Name Results Value Reference Range Date Interpretation Specimen Comments Source LIPID PANEL FASTING CHOLESTERO L [MASS/VOLU ME] IN SERUM OR PLASMA 174 mg/dL 07/04 Specimen Type: SERUM No comment entered. Ordering Provider: JORDY PONCE Report Released Date/Time: Jul 13, 2023 02:33 PM Reporting Lab: [facility] [address] [address] Performing Lab: [facility] [address] [facility] LIPID PANEL FASTING TRIGLYCERI DE [MASS/VOLU ME] IN SERUM OR PLASMA 203 mg/dL 0 - 150 07/04 H Specimen Type: SERUM No comment entered. Ordering Provider: JORDY PONCE Report Released Date/Time: Jul 13, 2023 02:33 PM Reporting Lab: [facility] [address] Performing Lab: [facility] [address] [facility] [address] [facility] LIPID PANEL FASTING CHOLESTERO L IN LDL [MASS/VOLU ME] IN SERUM OR PLASMA BY CALCULATIO N 94 mg/dL 0 - 129 07/04 Specimen Type: SERUM No comment entered. Ordering Provider: JORDY PONCE Report Released Date/Time: Jul 13, 2023 02:33 PM Reporting Lab: [facility] [address] Performing Lab: [facility] [address] [place] [facility] LIPID PANEL FASTING CHOLESTERO L.TOTAL/CH OLESTEROL IN HDL [MASS RATIO] IN SERUM OR PLASMA 4.5 07/04 Specimen Type: SERUM No comment entered. Ordering Provider: JORDY PNOCE Report Released Date/Time: Jul 13, 2023 02:33 PM Reporting Lab: [facility] [place] [facility] [address] [facility] [address] Performing Lab: [facility] [place] [facility] [address] [facility] [address] [place] [facility] LIPID PANEL FASTING CHOLESTERO L IN HDL [MASS/VOLU ME] IN SERUM OR PLASMA 39 mg/dL 40 - 60 07/04 L Specimen Type: SERUM No comment entered. Ordering Provider: JORDY PONCE Report Released Date/Time: Jul 13, 2023 02:33 PM Reporting Lab: [facility] [place] [facility] [address] [facility] [address] Performing Lab: [facility] [place] [facility] [address] [facility] [address] [place] [facility] [facility] LIVER FUNCTION PROTEIN [MASS/VOLU ME] IN SERUM OR PLASMA 7.4 g/dL 6.0 - 8.3 07/04 Specimen Type: SERUM No comment entered. Ordering Provider: JORDY PONCE Report Released Date/Time: Jul 13, 2023 02:33 PM Reporting Lab: [facility] [place] [facility] [address] [facility] [address] Performing Lab: [facility] [place] [facility] [address] [facility] [facility] [address] [place] [facility] [place] [facility] LIVER FUNCTION ALBUMIN [MASS/VOLU ME] IN SERUM OR PLASMA 3.7 g/dL 3.5 - 5.0 07/04 Specimen Type: SERUM No comment entered. Ordering Provider: JORDY PONCE Report Released Date/Time: Jul 13, 2023 02:33 PM Reporting Lab: [facility] [place] [facility] [address] [facility] [address] Performing Lab: [facility] [address] [address] [facility] LIVER FUNCTION ALKALINE PHOSPHATAS E [ENZYMATIC ACTIVITY/V OLUME] IN SERUM OR PLASMA 39 U/L 40 - 150 07/04 L Specimen Type: SERUM No comment entered. Ordering Provider: JORDY PONCE Report Released Date/Time: Jul 13, 2023 02:33 PM Reporting Lab: [facility] [address] [facility] [address] Performing Lab: [facility] [place] [facility] [address] [facility] [facility] [address] [place] [facility] [facility] LIVER FUNCTION ASPARTATE AMINOTRANS FERASE [ENZYMATIC ACTIVITY/V OLUME] IN SERUM OR PLASMA 28 U/L 5 - 34 07/04 Specimen Type: SERUM No comment entered. Ordering Provider: JORDY PONCE Report Released Date/Time: Jul 13, 2023 02:33 PM Reporting Lab: [facility] [place] [facility] [address] [facility] [address] Performing Lab: [facility] [place] [facility] [address] [facility] [facility] [address] [place] [facility] [facility] LIVER FUNCTION ALANINE AMINOTRANS FERASE [ENZYMATIC ACTIVITY/V OLUME] IN SERUM OR PLASMA 32 U/L 07/04 Specimen Type: SERUM No comment entered. Ordering Provider: JORDY PONCE Report Released Date/Time: Jul 13, 2023 02:33 PM Reporting Lab: [facility] [place] [facility] [address] [facility] [address] [address] Performing Lab: [facility] [place] [facility] [address] [address] [place] [facility] LIVER FUNCTION BILIRUBIN. TOTAL [MASS/VOLU ME] IN SERUM OR PLASMA 0.5 mg/dL 0.2 - 1.2 07/04 Specimen Type: SERUM No comment entered. Ordering Provider: JORDY PONCE Report Released Date/Time: Jul 13, 2023 02:33 PM Reporting Lab: [facility] [address] [facility] [address] Performing Lab: [facility] [address] [address] [facility] MICROALBU MIN CREATININ E RATIO PANEL MICROALBUM IN/CREATIN INE [MASS RATIO] IN URINE 53.5 mg/g 0 - 29.9 07/04 H Specimen Type: URINE No comment entered. Ordering Provider: JORDY PONCE Report Released Date/Time: Jul 13, 2023 02:33 PM Reporting Lab: [facility] [place] [facility] [address] [facility] [address] Performing Lab: [facility] [place] [facility] [address] [facility] [address] [place] [facility] MICROALBU MIN CREATININ E RATIO PANEL MICROALBUM IN [MASS/VOLU ME] IN URINE 3.7 mg/dL 07/04 Specimen Type: URINE No comment entered. Ordering Provider: JORDY PONCE Report Released Date/Time: Jul 13, 2023 02:33 PM Reporting Lab: [facility] [place] [facility] [address] [address] Performing Lab: [facility] [place] [facility] [address] [address] [place] [facility] MICROALBU MIN CREATININ E RATIO PANEL CREATININE [MASS/VOLU ME] IN URINE 69.22 mg/dL 07/04 Specimen Type: URINE No comment entered. Ordering Provider: JORDY PONCE Report Released Date/Time: Jul 13, 2023 02:33 PM Reporting Lab: [facility] [place] [facility] [address] [address] Performing Lab: [facility] [place] [facility] [address] [facility] [address] [facility] HEMOGLOBI N A1C PANEL HEMOGLOBIN A1C/HEMOGL OBIN.TOTAL IN BLOOD BY HPLC 6.5 4.0 - 5.6 02/05 /2025 H Specimen Type: BLOOD Comment: Values obtained from A1C measurement s can vary. For atypical A1C assays, a reported value of 7.0 could actually be between 6.72 and 7.28 if measured by a reference method. A reported value of 9.0 could actually be between 8.73 and 9.27. Ref: http://www. ngsp.org/[place] Pdata.asp Ordering Provider: JORDY PONCE Report Released Date/Time: Jul 13, 2023 02:33 PM Reporting Lab: [facility] [address] [address] Performing Lab: [address] [address] [facility] BASIC METABOLIC PANEL (fasting) UREA NITROGEN [MASS/VOLU ME] IN SERUM OR PLASMA 18 mg/dL 7 - 25 07/04 Specimen Type: SERUM No comment entered. Ordering Provider: JORDY PONCE Report Released Date/Time: Jul 13, 2023 02:33 PM Reporting Lab: [facility] [address] [address] Performing Lab: [facility] [address] [address] [facility] BASIC METABOLIC PANEL (fasting) GLUCOSE [MASS/VOLU ME] IN SERUM OR PLASMA 139 mg/dL 65 - 100 07/04 H Specimen Type: SERUM No comment entered. Ordering Provider: JORDY PONCE Report Released Date/Time: Jul 13, 2023 02:33 PM Reporting Lab: [facility] [address] [address] Performing Lab: [facility] [address] [address] [facility] BASIC METABOLIC PANEL (fasting) SODIUM [MOLES/VOL UME] IN SERUM OR PLASMA 138 mmol/L 135 - 145 07/04 Specimen Type: SERUM No comment entered. Ordering Provider: JORDY PONCE Report Released Date/Time: Jul 13, 2023 02:33 PM Reporting Lab: [facility] [place] [facility] [address] [facility] [address] Performing Lab: [facility] [place] [facility] [address] [facility] [facility] [address] [place] [facility] [facility] [place] [facility] BASIC METABOLIC PANEL (fasting) POTASSIUM [MOLES/VOL UME] IN SERUM OR PLASMA 5.3 mmol/L 3.5 - 5.0 07/04 H Specimen Type: SERUM No comment entered. Ordering Provider: JORDY PONCE Report Released Date/Time: Jul 13, 2023 02:33 PM Reporting Lab: [place] [facility] [place] [facility] [address] [facility] [address] Performing Lab: [place] [facility] [place] [address] [address] [facility] BASIC METABOLIC PANEL (fasting) CHLORIDE [MOLES/VOL UME] IN SERUM OR PLASMA 102 mmol/L 100 - 110 07/04 Specimen Type: SERUM No comment entered. Ordering Provider: JORDY PONCE Report Released Date/Time: Jul 13, 2023 02:33 PM Reporting Lab: [place] [facility] [place] [facility] [address] [facility] [facility] [address] Performing Lab: [facility] [place] [address] [address] [place] [facility] [place] [facility] BASIC METABOLIC PANEL (fasting) CARBON DIOXIDE, TOTAL [MOLES/VOL UME] IN SERUM OR PLASMA 26 meq/L 20 - 30 07/04 Specimen Type: SERUM No comment entered. Ordering Provider: JORDY PONCE Report Released Date/Time: Jul 13, 2023 02:33 PM Reporting Lab: [facility] [place] [facility] [address] [facility] [address] Performing Lab: [facility] [place] [facility] [address] [facility] [address] [place] [facility] [facility] [place] [facility] BASIC METABOLIC PANEL (fasting) CREATININE [MASS/VOLU ME] IN SERUM OR PLASMA 1.10 mg/dL 0.50 - 1.40 07/04 Specimen Type: SERUM No comment entered. Ordering Provider: JORDY PONCE Report Released Date/Time: Jul 13, 2023 02:33 PM Reporting Lab: [facility] [place] [facility] [address] [facility] [address] Performing Lab: [facility]RL TRN [facility] [address] [facility] BASIC METABOLIC PANEL (fasting) GLOMERULAR FILTRATION RATE/1.73 SQ M.PREDICTE D [VOLUME RATE/AREA] IN SERUM, PLASMA OR BLOOD BY CREATININE -BASED FORMULA (CKD-EPI 2020) 74 mL/min 60 07/04 Specimen Type: SERUM No comment entered. Ordering Provider: JORDY PONCE Report Released Date/Time: Jul 13, 2023 02:33 PM Reporting Lab: [facility] TRN [facility]SUSE[address] [address] Performing Lab: [facility]RL TRN [facility]ITAL[facility] [address] [facility] HEMOGLOBI N A1C PANEL HEMOGLOBIN A1C/HEMOGL OBIN.TOTAL IN BLOOD BY HPLC 6.4 4.0 - 5.6 01/10 H Specimen Type: BLOOD Comment: Values obtained from A1C measurement s can vary. For atypical A1C assays, a reported value of 7.0 could actually be between 6.72 and 7.28 if measured by a reference method. A reported value of 9.0 could actually be between 8.73 and 9.27. Ref: http://www. ngsp.org/[place] Pdata.asp Ordering Provider: GERDA FLOR AM Report Released Date/Time: Jan 11, 2024 01:00 PM Reporting Lab: [facility] [address] Performing Lab: [facility]ITALUSE[address] [address] [facility] MICROALBU MIN CREATININ E RATIO PANEL MICROALBUM IN/CREATIN INE [MASS RATIO] IN URINE 64.7 mg/g 0 - 29.9 07/12 H Specimen Type: URINE No comment entered. Ordering Provider: JORDY PONCE Report Released Date/Time: Jul 13, 2022 05:58 AM Reporting Lab: [facility] [place] [facility] [address] [facility] [address] Performing Lab: [facility] [place] [facility] [address] [facility] [address] [place] [facility] [place] [facility] MICROALBU MIN CREATININ E RATIO PANEL MICROALBUM IN [MASS/VOLU ME] IN URINE 3.8 mg/dL 07/12 Specimen Type: URINE No comment entered. Ordering Provider: JORDY PONCE Report Released Date/Time: Jul 13, 2022 05:58 AM Reporting Lab: [facility] [place] [address] [address] Performing Lab: [facility] [place] [facility] [address] [facility] [address] [place] [facility] [place] [facility] MICROALBU MIN CREATININ E RATIO PANEL CREATININE [MASS/VOLU ME] IN URINE 58.70 mg/dL 07/12 Specimen Type: URINE No comment entered. Ordering Provider: JORDY PONCE Report Released Date/Time: Jul 13, 2022 05:58 AM Reporting Lab: [facility] [place] [address] [address] Performing Lab: [facility] [facility] [address] [facility] [address] [place] [facility] [place] [facility] LIPID PANEL FASTING CHOLESTERO L [MASS/VOLU ME] IN SERUM OR PLASMA 178 mg/dL 07/08 Specimen Type: SERUM No comment entered. Ordering Provider: JORDY PONCE Report Released Date/Time: Jul 13, 2022 05:58 AM Reporting Lab: [facility] [place] [facility] [address] [facility] [address] Performing Lab: [facility] [place] [place] [address] [address] [facility] [place] [facility] LIPID PANEL FASTING TRIGLYCERI DE [MASS/VOLU ME] IN SERUM OR PLASMA 320 mg/dL 0 - 150 07/08 H Specimen Type: SERUM No comment entered. Ordering Provider: JORDY PONCE Report Released Date/Time: Jul 13, 2022 05:58 AM Reporting Lab: [place] [facility] [place] [facility] [address] [facility] [address] Performing Lab: [place] [facility] [place] [facility] [address] [facility] [address] [place] [facility] [facility] [facility] [facility] LIPID PANEL FASTING CHOLESTERO L IN LDL [MASS/VOLU ME] IN SERUM OR PLASMA BY CALCULATIO N Reflex to dLDLmg/ dL 0 - 129 07/08 Specimen Type: SERUM No comment entered. Ordering Provider: JORDY PONCE Report Released Date/Time: Jul 13, 2022 05:58 AM Reporting Lab: [place] [facility] [place] [address] [address] Performing Lab: [place] [facility] [place] [address] [address] [facility] LIPID PANEL FASTING CHOLESTERO L.TOTAL/CH OLESTEROL IN HDL [MASS RATIO] IN SERUM OR PLASMA 5.2 07/08 Specimen Type: SERUM No comment entered. Ordering Provider: JORDY PONCE Report Released Date/Time: Jul 13, 2022 05:58 AM Reporting Lab: [place] [facility] [place] [address] [address] Performing Lab: [place] [facility] [address] [address] [facility] LIPID PANEL FASTING CHOLESTERO L IN HDL [MASS/VOLU ME] IN SERUM OR PLASMA 34 mg/dL 40 - 60 07/08 L Specimen Type: SERUM No comment entered. Ordering Provider: JORDY PONCE Report Released Date/Time: Jul 13, 2022 05:58 AM Reporting Lab: [place] [facility] [place] [address] [address] Performing Lab: [place] [facility] [facility] [address] [facility] [address] [facility] LIPID PANEL FASTING CHOLESTERO L IN LDL [MASS/VOLU ME] IN SERUM OR PLASMA BY DIRECT ASSAY 106 mg/dL 07/08 Specimen Type: SERUM No comment entered. Ordering Provider: JORDY PONCE Report Released Date/Time: Jul 13, 2022 05:58 AM Reporting Lab: [place] [facility] [facility] [address] [facility] [address] Performing Lab: [facility] [place] [facility] [address] [facility] [address] [facility] BASIC METABOLIC PANEL (fasting) UREA NITROGEN [MASS/VOLU ME] IN SERUM OR PLASMA 26 mg/dL 7 - 25 07/08 H Specimen Type: SERUM No comment entered. Ordering Provider: JORDY PONCE Report Released Date/Time: Jul 13, 2022 05:58 AM Reporting Lab: [facility] [place] [facility] [address] [facility] [phone] Performing Lab: [place] [facility] [facility] [address] [facility] [address] [facility] BASIC METABOLIC PANEL (fasting) GLUCOSE [MASS/VOLU ME] IN SERUM OR PLASMA 131 mg/dL 65 - 100 07/08 H Specimen Type: SERUM No comment entered. Ordering Provider: JORDY PONCE Report Released Date/Time: Jul 13, 2022 05:58 AM Reporting Lab: [place] [facility] [facility] [address] [facility] [address] Performing Lab: [place] [facility] [place] [facility] [address] [address] [facility] BASIC METABOLIC PANEL (fasting) SODIUM [MOLES/VOL UME] IN SERUM OR PLASMA 136 mmol/L 135 - 145 07/08 Specimen Type: SERUM No comment entered. Ordering Provider: JORDY PONCE Report Released Date/Time: Jul 13, 2022 05:58 AM Reporting Lab: [facility] [place] [facility] [address] [address] Performing Lab: [place] [facility] [facility] [address] [address] [place] [facility] BASIC METABOLIC PANEL (fasting) POTASSIUM [MOLES/VOL UME] IN SERUM OR PLASMA 4.7 mmol/L 3.5 - 5.0 07/08 Specimen Type: SERUM No comment entered. Ordering Provider: JORDY PONCE Report Released Date/Time: Jul 13, 2022 05:58 AM Reporting Lab: [place] [facility] [facility] [address] [address] Performing Lab: [place] [address] [address] [facility] [place] [facility] BASIC METABOLIC PANEL (fasting) CHLORIDE [MOLES/VOL UME] IN SERUM OR PLASMA 105 mmol/L 100 - 110 07/08 Specimen Type: SERUM No comment entered. Ordering Provider: JORDY PONCE Report Released Date/Time: Jul 13, 2022 05:58 AM Reporting Lab: [place] [facility] [address] [address] Performing Lab: [place] [facility] [address] [address] [facility] [place] [facility] BASIC METABOLIC PANEL (fasting) CARBON DIOXIDE, TOTAL [MOLES/VOL UME] IN SERUM OR PLASMA 21 meq/L 20 - 30 07/08 Specimen Type: SERUM No comment entered. Ordering Provider: JORDY PONCE Report Released Date/Time: Jul 13, 2022 05:58 AM Reporting Lab: [facility] [place] [facility] [address] [address] Performing Lab: [facility] [place] [place] [address] [address] [place] [facility] BASIC METABOLIC PANEL (fasting) CREATININE [MASS/VOLU ME] IN SERUM OR PLASMA 1.09 mg/dL 0.50 - 1.40 07/08 Specimen Type: SERUM No comment entered. Ordering Provider: JORDY PONCE Report Released Date/Time: Jul 13, 2022 05:58 AM Reporting Lab: [facility] [address] [address] Performing Lab: [facility] [address] [address] [facility] BASIC METABOLIC PANEL (fasting) GLOMERULAR FILTRATION RATE/1.73 SQ M.PREDICTE D [VOLUME RATE/AREA] IN SERUM, PLASMA OR BLOOD BY CREATININE -BASED FORMULA (CKD-EPI 2020) 75 mL/min 60 07/08 Specimen Type: SERUM No comment entered. Ordering Provider: JORDY PONCE Report Released Date/Time: Jul 13, 2022 05:58 AM Reporting Lab: [address] [address] Performing Lab: [address] [address] [facility] HEMOGLOBI N A1C PANEL HEMOGLOBIN A1C/HEMOGL OBIN.TOTAL IN BLOOD BY HPLC 6.5 4.0 - 5.6 07/08 H Specimen Type: BLOOD Comment: Values obtained from A1C measurement s can vary. For atypical A1C assays, a reported value of 7.0 could actually be between 6.72 and 7.28 if measured by a reference method. A reported value of 9.0 could actually be between 8.73 and 9.27. Ref: http://www. ngsp.org/[place] Pdata.asp Ordering Provider: JORDY PONCE Report Released Date/Time: Jul 13, 2022 05:58 AM Reporting Lab: [address] [address] Performing Lab: [address] [address] [facility] Vital Signs Combined list of inpatient and outpatient Vital Signs from Department of Defense and Veterans Affairs, ranging from 12 months to all on record, depending upon the facility. Vital Sign Value Date Comments Source SYSTOLIC BLOOD PRESSURE 125 07/10/19 25 13:34:56 [facility] [place] [facility] DIASTOLIC BLOOD PRESSURE 68 025 13:34:56 [facility] [place] [facility] PULSE OXIMETRY 97 07/10/2024 13:34:56 [facility] [place] [facility] WEIGHT 265.2 07/10/2024 13:34:56 [facility] [place] [facility] BMI 40 kg/m2 07/10/2024 13:34:56 [facility] [place] [facility] PAIN 0 07/10/2024 13:34:56 [facility] [place] [facility] HEIGHT 68 07/10/2024 13:34:56 [facility] [place] [facility] TEMPERATURE 97.7 07/10/2024 13:34:56 [facility] [place] [facility] PULSE 83 07/10/2024 13:34:56 [facility] [place] [facility] RESPIRATION 18 07/10/2024 13:34:56 [facility] [place] [facility] Encounters Combined list of: 1) Encounters from Department of Veterans Affairs facilities going backup to the last 18 months, not all VA inpatient encounters are included; 2) 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 Location Location Details Encounter Type Encounter Number Reason For Visit Attending Provider ADM Date DC Date Status Disposition Source [place] MT[place] BY PHARM ADDL 15 MIN [id number] Diagnos is: ICD-10- CM E11.9 Type 2 diabete s mellitu s without complic ations [place] KIANA PAREDES 04/12 [place] [facility] (631GE) QNHP OL DIG ASSMT&MGMT 5-10 [id number] Diagnos is: ICD-10- CM E11.9 Type 2 diabete s mellitu s without complic ations RADHA,CHR ISTINE F 04/12 [facility] (631GE) [place] MTMS BY PHARM ADDL 15 MIN [id number] Diagnos is: ICD-10- CM E11.9 Type 2 diabete s mellitu s without complic ations BASIA,WILL KIANA PAREDES 04/19 [place] [facility] [place] [facility] Outpatient Encounter [id number] 05/30 [facility] [place] [facility] [place] MTMS BY PHARM ADDL 15 MIN [id number] Diagnos is: ICD-10- CM E11.9 Type 2 diabete s mellitu s without complic ations BASIA,WILL KIANAAbby PAREDES 05/31 [place] [facility] [place] [facility] QNHP OL DIG ASSMT&MGMT 5-10 [id number] Diagnos is: ICD-10- CM E11.9 Type 2 diabete s mellitu s without complic ations German LONG 06/01 [facility] [place] [place] [facility] [place] MTMS BY PHARM ADDL 15 MIN [id number] Diagnos is: ICD-10- CM E11.9 Type 2 diabete s mellitu s without complic ations BASIA,WILL KIANA PAREDES 07/13 [facility] OFFICE O/P EST MOD 30 MIN [id number] Diagnos is: ICD-10- CM I10 Essenti al (primar y) hyperte nsion PRAVIN PONCE 07/13 [place] [facility] [place] En[facility] [id number] 07/13 [facility] [place] [facility] [place] [facility] Outpatient Encounter [id number] 07/13 [facility] [place] [facility] [place] MTMS BY PHARM ADDL 15 MIN [id number] Diagnos is: ICD-10- CM E11.9 Type 2 diabete s mellitu s without complic ations SAMUEL FLOR KIANA PAREDES 08/09 [place] [facility] [place] [facility] PHARM ADDL 15 MIN [id number] Diagnos is: ICD-10- CM E11.9 Type 2 diabete s mellitu s without complic ations SAMUEL FLOR KIANA PAREDES 09/20 [place] [facility] [place] [facility] QNHP OL DIG ASSMT&MGMT 5-10 [id number] Diagnos is: ICD-10- CM I51.9 Heart disease , unspeci fied ARYA LOVELL A 09/21 [facility] [place] [place] [facility] [place] PSYTX W PT 45 MINUTES [id number] Diagnos is: ICD-10- CM F32.A Depress ion, unspeci fied VINOCOUR,J ILL M 10/16 [place] [facility] [place] [facility] [place] 1 [id number] Diagnos is: ICD-10- CM E11.9 Type 2 diabete s mellitu s without complic ations GORDON NOBLES 11/07 [facility] [place] [facility] [place] [place] [facility] Outpatient Encounter [id number] 11/08 [facility] [place] [facility] [place] PSYTX W PT 30 MINUTES [id number] Diagnos is: ICD-10- CM F32.A Depress ion, unspeci fied VINOCOUR,J ILL M 11/08 [place] [facility] [place] [facility] Outpatient Encounter [id number] [facility] [place] [facility] [place] MT[place] BY PHARM ADDL 15 MIN [id number] Diagnos is: ICD-10- CM E11.9 Type 2 diabete s mellitu s without complic ations BASIA,WILL KIANA PAREDES 11/14 [place] [facility] Encounter [id number] 11/20 [facility] [place] [facility] [place] MTMS BY PHARM ADDL 15 MIN [id number] Diagnos is: ICD-10- CM E11.9 Type 2 diabete s mellitu s without complic ations BASIA,WILL KIANA PAREDES 01/10 [place] [facility] Out[facility] Encounter [id number] 02/13 [facility] [place] [facility] [place] PSYTX W PT 30 MINUTES [id number] Diagnos is: ICD-10- CM F32.A Depress ion, unspeci fied VINOCOUR,J ILL M 02/28 [place] [facility] En[facility] [id number] 03/09 [facility] [place] [facility] [place] En[facility] [id number] 03/13 [facility] [place] [place] En[facility] [id number] 05/01 [facility] [place] [facility] [place] En[facility] [id number] 06/27 [facility] [place] [facility] [facility] [place] En[facility] [id number] 06/27 [facility] [place] [place] [facility] [facility] [place] En[facility] [id number] 07/03 [place] [facility] [place] OFFICE O/P EST LOW 20 MIN [id number] Diagnos is: ICD-10- CM I10 Essenti al (primar y) hyperte nsPRAVIN [place] 07/10 [facility] [place] [facility] Outpatient Encounter [id number] 09/04 [place] [facility] [place] [facility] Outpatient Encounter [id number] 09/04 [place] [facility] Social History Combined list of available smoking, tobacco, and other social history from Department of Defense and Veterans Affairs facilities. Social History Type Response Date Comment Sourc e Tobacco smoking status [place]-TOBACCO USE FORMER CIGARETTES 07/10/2024 [place] [facility]/10/2024 [place] History of tobacco use OK-TOBACCO FORMER USER 07/13/2023 [place] History of tobacco use OK-TOBACCO FORMER USER 07/13/2022 [place] History of tobacco use OK-TOBACCO FORMER USER 06/24/2021 [place] History of tobacco use OK-TOBACCO QUIT 5 TO < 15 YRS 10/25/2018 [place] History of tobacco use QUIT TOBACCO USE > 7 YEARS AGO 10/10/2017 [place] Plan of Care List of future care activities from [facility] facilities. Additional future care activities may be listed in the Assessment and Plan section. Date/Time Care Activity Care Activity Detail Facili ty 11/12/2024 AMBULATORY - MEDICINE [facility]AT[facility] - [facility] Advance Directives List of completed, amended, or rescinded Advance Directives on record at Department of Veterans Affairs facilities. An actual copy of the Directive is not included. Date Advance Directive Provider Source 06/15/2018 ADVANCE DIRECTIVE ROYA ARCE [facility]
--- OUTSIDE RECORDS SUMMARY | 2024-09-27 15:32 | XMS_ITS | Encounter Summary ---
Author Name [facility] [place] Address [address] [place] [address] Care Team Providers Care Hat Block Maker Name Role Phone JORDY PONCE Primary Care [...] Workman's Name Patient's Relationship to Policy Workman [facility] (WNR) MEDICARE ADVANTAGE [facility] (WNR) May 30, 2023 [id number] AG CARPENTER PATIENT MEDICAID MEDICAID [facility] May 30, 2017 MEDICAI D [id number] AG CARPENTER PATIENT Selected Encounter This section includes the information on record at [place] for the Encounter. Date/Time Encounter Type Encounter Description Reason Provider Source Jul 10, 2024 01:30 PM OFFICE O/P EST LOW 20 MIN PRIMARY CARE/MEDICINE ICD-10-CM I10 Essential (primary) hypertension JORDY PONCE Encounter Template Text not used by [facility] Assessments - Encounter Diagnoses This section includes the primary and secondary diagnoses documented for the Encounter. Date/Time Primary/Secondary Diagnosis Diagnosis Name Provider Source Jul 10, 2024 02:13 PM PRIMARY Essential (primary) hypertension JORDY PONCE Jul 10, 2024 02:13 PM SECONDARY Obesity, unspecified JORDY PONCE JEDDO Plan of Treatment: Future Appointments (+ 6 months) and Future Tests (+/- 45 days) The Plan of Treatment section includes future care activities for the patient from all [place] treatmentfacilities. This section includes future appointments and future orders which are active, pending or scheduled. Future Appointments This section includes appointments that were scheduled to occur 6 months from the date of the Encounter, up to a maximum of 20 appointments. The data comes from all [place] treatment facilities. Appointment Date/Time Appointment Type Appointme nt Facility Name Nov 12, 2024 03:30 PM AMBULATORY - MEDICINE [facility] Lab Results: +/- 30 days of [...] Type Result - Unit Interpretation Reference Range Specimen Type Comment Jul 04, 2024 11:58 AM [facility] LIPID PANEL FASTING SERUM Specimen Type: SERUM No comment entered. Ordering Provider: JORDY PONCE Report Released Date/Time: Jul 13, 2023 02:33 PM Reporting [facility] [address] [facility] [address] Performing Lab: [address] [address] CHOLESTEROL 174 mg/dL TRIGLYCERIDE 203 mg/dL H 0-150 LDL calculated 94 mg/dL 0-129 CHOL/HDL 4.5 HDL CHOLESTEROL 39 mg/dL L 40-60 Jul 04, 2024 11:58 AM [facility] LIVER FUNCTION SERUM Specimen Type: SERUM No comment entered. Ordering Provider: JORDY PONCE Report Released Date/Time: Jul 13, 2023 02:33 PM Reporting [facility] [address] [facility] [address] Performing Lab: [address] [address] PROTEIN,TOTAL 7.4 g/dL 6.0-8.3 ALBUMIN 3.7 g/dL 3.5-5.0 ALKALINE PHOSPHATASE 39 U/L L 40-150 AST 28 U/L 5-34 ALT 32 U/L BILIRUBIN, TOTAL 0.5 mg/dL 0.2-1.2 Jul 04, 2024 11:58 AM [facility] BASIC METABOLIC PANEL (fasting) SERUM Specime n Type: SERUM No comment entered. Ordering Provider: JORDY PONCE Report Released Date/Time: Jul 13, 2023 02:33 PM Reporting Lab: [address] [address] Performing Lab: [address] [address] UREA NITROGEN 18 mg/dL 7-25 GLUCOSE 139 mg/dL H 65-100 SODIUM 138 mmol/L 135-145 POTASSIUM 5.3 mmol/L H 3.5-5.0 CHLORIDE 102 mmol/L 100-110 CO2 26 meq/L 20-30 CREATININE, Serum 1.10 mg/dL 0.50-1.40 eGFR(CKD-EPI 2020) 74 mL/min >60 Jul 04, 2024 11:58 AM [facility] MICROALBUMIN CREATININE RATIO PANEL URINE Spe cimen Type: URINE No comment entered. Ordering Provider: JORDY PONCE Report Released Date/Time: Jul 13, 2023 02:33 PM Reporting Lab: [address] [address] Performing Lab: [address] [address] MICROALBUMIN/CREATININE RATIO 53.5 mg/g H 0-29.9 MICROALBUMIN,QUANTITATIVE 3.7 mg/dL RR U NAVAIL CREATININE URINE 69.22 mg/dL Jul 04, 2024 11:58 AM [facility] HEMOGLOBIN A1C PANEL BLOOD Specimen Type: BLO OD Comment: Values obtained from A1C measurements can vary. For atypical A1C assays, a reported value of 7.0 could actually be between 6.72 and 7.28 if measured by a reference method. A reported value of 9.0 could actually be between 8.73 and 9.27. Ref: http://www.ngsp.org/CAPdata.asp Ordering Provider: JORDY PONCE Report Released Date/Time: Jul 13, 2023 02:33 PM Reporting Lab: [facility] [address] [facility] [address] Performing Lab: [address] [address] HEMOGLOBIN A1C 6.5 H 4.0-5.6 Social History: Smoking Status (Most [...] Current Smoking Status Comment Mg ity Jul 10, 2024 01:30 PM VA-TOBACCO NEVER USED OTHER TYPE JEDDO Tobacco Use History This section includes a history of the smoking, or tobacco-related health factors, that were collected on or before the date of the Encounter. The data comes from the [place] facility where the Encounter took place. Date/Time Smoking Status/Tobacco Use Comment F acility Jul 10, 2024 01:30 PM VA-TOBACCO USE FORMER CIGARETTES JEDDO Jul 13, 2023 12:30 PM VA-TOBACCO FORMER USER JEDDO Jul 13, 2023 12:30 PM VA-TOBACCO QUIT 5 TO < 15 YRS JEDDO Jul 13, 2022 01:30 PM VA-TOBACCO FORMER USER JEDDO Jul 13, 2022 01:30 PM VA-TOBACCO QUIT 5 TO < 15 YRS JEDDO Jun 24, 2021 02:00 PM VA-TOBACCO FORMER USER JEDDO Jun 24, 2021 02:00 PM VA-TOBACCO QUIT 15 YRS OR MORE JEDDO October 25, 2018 02:45 PM VA-TOBACCO FORMER USER JEDDO October 25, 2018 02:45 PM VA-TOBACCO QUIT 5 TO < 15 YRS JEDDO October 10, 2017 09:12 AM QUIT TOBACCO USE > 7 YEARS AGO JEDDO Advance Directives: All historical and current Section Date Range: From patient's date of to the date document was created. This section includes ALL of a patient's completed or amended [place] Advance and Rescinded Directives. The entries below indicate that a directive exists for the patient, but an actual copy is not included with this document. The data comes from all [place] facilities. Date Advance Directives Provider Source Jun 15, 2018 ADVANCE DIRECTIVE ROYA ARCE [facility] Encounter Notes: All associated encounter notes This section contains the clinical notes associated to the Encounter. Date/Time Encounter Note(s) Provider Source Jul 10, 2024 01:35 PM PREVENTIVE MEDICIN E NURSING NOTE: LOCAL TITLE: CLINICAL REMINDERS/NURSING STANDARD TITLE: PREVENTIVE MEDICINE NURSING NOTE DATE OF NOTE: JUL 10, 2024@13:35 ENTRY DATE: JUL 10, 2024@13:35:37 AUTHOR: KALYAN BROWN COSIGNER: URGENCY: STATUS: COMPLETED Advance Directive Screen MH AD: Patient has an Advance Directive on file at this [facility]. No updates are needed at this time. The patient received education about Advance Directives and written notification of his/her rights. Suicide Screen: C-SSRS Screening [place] Suicide Severity Rating Scale (C-SSRS) screener 1. Over the past month, have you [...] required due to responses to other questions. Depression Screening: Perform PHQ-2 A PHQ-2 screen was performed. The score was 0 which is a negative screen for depression. Over the past two weeks, how often have you been bothered by the following problems? 1. Little interest or pleasure in doing things Not at all 2. Feeling down, depressed, or hopeless Not at all Pneumococcal Conjugate Vaccine (PCV15/PCV20): Refuses PCV vaccine Immunization: PNEUMOCOCCAL CONJUGATE, UNSPECIFIED FORMULATION Refusal Reason: PATIENT DECISION Patient refuses all immunization(s) in the PneumoPCV group Date Documented: 07/10/24 13:36 Tobacco Use Screening: The patient is a former cigarette smoker. The patient has never used other types of tobacco. Influenza Immunization: Deferral / Refusal The patient declines to receive the recommended dose of seasonal influenza vaccine. Immunization: INFLUENZA, UNSPECIFIED FORMULATION Refusal Reason: PATIENT DECISION Patient refuses all immunization(s) in the FLU group Date Documented: 07/10/24 13:36 Alcohol Use Screen (AUDIT-C): Alcohol Screen: SCREEN [...] (like scotch, gin, or vodka). Two to three times per week 2. How many drinks containing alcohol did you have on a typical day when you were drinking in the past year? One or two drinks 3. How often did you have six or more drinks on one occasion in the past year? Never COVID-19 Immunization: Refused Moderna Monovalent COVID-19 vaccine Immunization: COVID-19 (MODERNA), MRNA, LNP-S, PF, 50 MCG/0.5 ML (AGES 12+ YEARS) Refusal Reason: PATIENT DECISION Patient refuses all immunization(s) in the COVID-19 group Date Documented: 07/10/24 13:37 Herpes Zoster (Shingles) Vaccine: The patient declines to receive the recommended dose of zoster (shingles) vaccine. Immunization: ZOSTER RECOMBINANT Refusal Reason: PATIENT DECISION Patient refuses all immunization(s) in the ZOSTER group Date Documented: 07/10/24 13:37 RSV Immunization: Respiratory Syncytial Virus (RSV) Vaccine: Refused [address] [employer] (Abrysvo, RSVpreF vaccine). Immunization: RSV, BIVALENT, PROTEIN SUBUNIT RSVPREF, DILUENT RECONSTITUTED, 0.5 ML, PF Refusal Reason: PATIENT DECISION Patient refuses all immunization(s) in the RSV group Date Documented: 07/10/24 13:37 Sexual Orientation: The patient thinks of their sexual orientation as: Straight or Heterosexual PAVE Foot Check: Patient declined limb care exam. The patient was advised the [place] mandates all patients with diabetes mellitus, end stage renal disease, peripheral vascular disease, or sensory neuropathy should have a complete foot check completed annually. This includes a visual exam of the skin, pedal pulses and a sensory exam. Patients with any abnormality noted during the foot check should be referred to a specialist. /lynnette/ KALYAN BROWN LPN PACT 10 Signed: 07/10/2024 13:38 KALYAN BROWN Jul 10, 2024 06:38 AM PHYSICIAN NOTE: LOCAL TITLE: MD NOTE STANDARD TITLE: PHYSICIAN NOTE DATE OF NOTE: JUL 10, 2024@06:38 ENTRY DATE: JUL 10, 2024@06:38:09 AUTHOR: JORDY PONCE EXP COSIGNER: URGENCY: STATUS: COMPLETED HISTORY OF PRESENT ILLNESS: SAMEER CARPENTER is a 68 yo MALE who presents at the [facility] for his annual visit. He maintains a nonVA PCP: Dr Garcia and a nonVA Spooling Supervisor: Dr Beal. [place] utilizes optometry and pharmacy services at the [place]. Active problems - Computerized Problem List is the source for the followin. Obesity 2. Obstructive sleep apnea syndrome 3. HTN - Hypertension 4. Hyperlipidemia 5. Diabetes Mellitus Type 2 6. Coronary artery disease 7. NON [facility] PCP 8. Colonoscopy Screening 9. History of [place] Active and Recently Outpatient Medications (including Supplies): Active Outpatient Medications Status 1) ATORVASTATIN CALCIUM 80MG TAB TAKE ONE-HALF TABLET BY MOUTH ACTIVE ONCE DAILY Indication: FOR HIGH CHOLESTEROL 2) EMPAGLIFLOZIN 25/METFORM 1000MG 24HR TAB TAKE 1 TABLET BY ACTIVE MOUTH ONCE DAILY Indication: FOR TYPE 2 DIABETES 3) FENOFIBRATE 145MG TAB TAKE ONE TABLET BY MOUTH ONCE DAILY ACTIVE REPLACES GEMFIBROZIL Indication: FOR HIGH CHOLESTEROL 4) GLIPIZIDE 5MG TAB TAKE ONE TABLET BY MOUTH TWICE DAILY ACTIVE BEFORE A MEAL Indication: FOR TYPE 2 DIABETES MELLITUS 5) GLUCOSE SENSOR FREESTYLE VLADISLAV 3 USE 1 SENSOR DIRECTED ACTIVE EVERY 14 DAYS 6) LISINOPRIL 5MG TAB TAKE ONE TABLET BY MOUTH ONCE DAILY TO ACTIVE CONTROL BLOOD PRESSURE Indication: FOR HIGH BLOOD PRESSURE 7) METOPROLOL SUCCINATE 100MG SA TAB TAKE ONE TABLET BY MOUTH ACTIVE ONCE DAILY Indication: FOR HIGH BLOOD PRESSURE Active Non-VA Medications Status 1) Non-VA ASPIRIN 81MG EC TAB 81MG BY MOUTH DAILY ACTIVE 2) Non-VA DULAGLUTIDE 0.75MG/0.5ML INJ PEN 0.75MG ACTIVE SUBCUTANEOUSLY ONCE A WEEK Indication: FOR TYPE 2 DIABETES MELLITUS 3) Non-VA INSULIN,GLARGINE-YFGN 100UNIT/ML PEN 3ML 23 UNITS ACTIVE SUBCUTANEOUSLY ONCE DAILY 4) Non-VA MULTIVITAMIN/MINERALS CAP/TAB 1 TABLET BY MOUTH ONCE ACTIVE DAILY Indication: UNKNOWN 5) Non-VA VENLAFAXINE HCL 75MG TAB 150MG BY MOUTH ONCE DAILY ACTIVE 12 Total Medications ALLERGIES: ========= [facility] LAB HISTORY: CHEM 7 TREND Collection DT Spec GLUCOSE BUN CREATIN Sodium K+/Pot CL CO2 07/04/2024 11:58 SERUM 139 H 18 1.10 138 5.3 H 102 26 07/08/2023 12:04 SERUM 131 H 26 H 1.09 136 4.7 105 21 04/07/2023 13:21 SERUM 159 H 15 1.03 137 4.6 103 23 12/17/2022 11:22 SERUM 102 H 20 1.08 138 4.8 103 23 09/23/2022 10:51 SERUM 84 14 0.98 138 4.4 103 25 HEMOGLOBIN A1C TREND Collection DT Spec HGBA1c 07/04/2024 11:58 BLOOD 6.5 H 01/11/2024 13:05 BLOOD 6.4 H 07/08/2023 12:04 BLOOD 6.5 H 04/07/2023 13:21 BLOOD 6.4 H 12/17/2022 11:22 BLOOD 6.8 H LIPID PANEL TREND Collection DT Spec CHOL HDL CHO/HDL LDL-d LDL-c TRIG 07/04/2024 11:58 SERUM 174 39 L 4.5 94 203 H 07/08/2023 12:04 SERUM 178 34 L 5.2 106 320 H 12/17/2022 11:22 SERUM 133 31 L 4.3 49 264 H 09/23/2022 10:51 SERUM 154 33 L 4.7 74 234 H 07/07/2022 10:56 SERUM 189 35 L 5.4 92 493 H LIVER PANEL TREND Collection DT Spec AST ALT T BILI ALK DANIA T. 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 - [employer] FROM Jun TO Mar COMBAT SERVICE INDICATED: No VITAL SIGNS: Blood Pressure 125/68 (07/10/2024 13:34) Pulse 83 (07/10/2024 13:34) Respiration 18 (07/10/2024 13:34) Pulse Oximetry 97% (07/10/2024 13:34) Temperature 97.7 F [36.5 C] (07/10/2024 13:34) Pain 0 (07/10/2024 13:34) Height 68 in [172.7 cm] (07/10/2024 13:34) Weight 265.2 lb [120.29 kg] (07/10/2024 13:34) BMI BMI: 40.4 REVIEW OF SYSTEMS: CARDIOVASCULAR: No chest pain, no palps RESPIRATORY: No SOB, no wheezing GASTROINTESTINAL: No abd pain, no N/V/D MUSCULOSKELETAL: No joint pain NEUROLOGIC: No H/A, no weakness EXAMINATION: GENERAL: WD/WN in NAD HEENT: Moist mucosa NECK: Supple HEART: RRR, S1-S2, no murmurs LUNGS: CTA B/L ABDOMEN: Soft, NT/ND EXTREMITIES: FROM x 4 NEUROLOGIC: AAO x3, no FF's PSYCHIATRIC: Good eye contact ASSESSMENT/PLAN: 1. CAD s/p [place] 07/13/2010 (totally occluded RCA): managed by cardiology/Dr Beal, on nitroglycerin 0.4mg prn 2. Hypertension: well controlled on lisinopril 5mg/day and metoprolol succinate 100mg/QAM and 25mg/QHS 3. Mixed Hyperlipidemia: on atorvastatin 80mg/QHS and fenofibrate 145mg/day 4. DM II: well controlled on empagliflozin/metformin 25mg/1000mg BID and glipizide 5mg BID, and basaglar qwikpen (Glargine) 30U/QHS, and Trulicity 0.75mg/week SC FBS 131 - A1c 6.5% Eye exam: 11/04/22 - [facility] - neg DR Podiatry exam: 2022 - nonVA PCP - pos PVD Microalbuminuria: 07/08/23 - mildly pos 5. Sleep Apnea: compliant with CPAP 6. Obesity: BMI ~42, counseled on weight loss 7. Depression and Anxiety: on medication >12 yrs now, on venlafaxine 150mg/day 8. Colonoscopy Screening: due 06/06/24 - Dr Arriaza FOLLOW UP: 1 year - Annual - bring PCP labs ========= UPCOMING APPOINTMENTS: 11/12/2024 15:30 [facility] 1 PM No barriers; Patient understands and agrees to current treatment plan. If pt has any questions, concerns, or changes in current health status he/she will call or come in to the [facility]. BMI>30/>24.99 High Risk: Patient declines to discuss weight management. Patient declined weight discussion. Discussed revisiting at a future visit. Medication Reconciliation: Outpatient: Has the patient been [...] Remote Allergy/ADR Data available for this patient [facility] No Known Allergies Med Recon NoGlossary (Tool #1) INCLUDED IN THIS LIST: Alphabetical list of active outpatient prescriptions dispensed from this [place] (local) and dispensed from another [place] or [facility] facility (remote) as well as inpatient orders [...] the patient into personal health records (i.e. [employer]) are NOT included in this list. Non-VA medications documented outside this [place], remote inpatient orders (regardless of status) and remote clinic medications are NOT included in this list. The patient and provider must always discuss medications the patient is taking, regardless of where the medication was dispensed or obtained. ------ Non-VA ASPIRIN 81MG EC TAB TAKE ONE TABLET BY MOUTH DAILY Non-VA medication not recommended by VA provider. OUTPT ATORVASTATIN CALCIUM 80MG TAB (Status = Active) TAKE ONE-HALF TABLET BY MOUTH ONCE DAILY FOR HIGH CHOLESTEROL Rx# [id number] Last Released: 06/26/24 Qty/Days Supply: 45/90 Rx Expiration Date: 03/14/25 Refills Remainin Indication: FOR HIGH CHOLESTEROL Non-VA DULAGLUTIDE 0.75MG/0.5ML INJ PEN INJECT 0.75MG SUBCUTANEOUSLY ONCE A WEEK Medication prescribed by Non-VA provider. by Dr. Garcia Indication: FOR TYPE 2 DIABETES MELLITUS OUTPT EMPAGLIFLOZIN 25/METFORM 1000MG 24HR TAB (Status = Active) TAKE 1 TABLET BY MOUTH ONCE DAILY FOR TYPE 2 DIABETES Rx# [id number] Last Released: 05/28/24 Qty/Days Supply: 90/90 Rx Expiration Date: 08/10/24 Refills Remainin Indication: FOR TYPE 2 DIABETES OUTPT FENOFIBRATE 145MG TAB (Status = Active) TAKE ONE TABLET BY MOUTH ONCE DAILY FOR HIGH CHOLESTEROL REPLACES GEMFIBROZIL Rx# [id number] Last Released: 06/05/24 Qty/Days Supply: 90/90 Rx Expiration Date: 02/20/25 Refills Remainin Indication: FOR HIGH CHOLESTEROL OUTPT GLIPIZIDE 5MG TAB (Status = Active) TAKE ONE TABLET BY MOUTH TWICE DAILY BEFORE A MEAL FOR TYPE 2 DIABETES MELLITUS Rx# [id number] Last Released: 07/04/24 Qty/Days Supply: 180/90 Rx Expiration Date: 03/14/25 Refills Remainin Indication: FOR TYPE 2 DIABETES MELLITUS OUTPT ICOSAPENT ETHYL 1GM CAP (Status = Active) TAKE TWO CAPSULES BY MOUTH TWICE DAILY FOR CORONARY ARTERY DISEASE WITH FOOD Rx# [id number] Last Released: 09/26/23 Qty/Days Supply: 120/30 Rx Expiration Date: 09/21/24 Refills Remainin Indication: FOR CORONARY ARTERY DISEASE Non-VA INSULIN,GLARGINE-YFGN 100UNIT/ML PEN 3ML INJECT 23 UNITS SUBCUTANEOUSLY ONCE DAILY Medication prescribed by Non-VA provider. actually Lantus OUTPT LISINOPRIL 5MG TAB (Status = Active) TAKE ONE TABLET BY MOUTH ONCE DAILY TO CONTROL BLOOD PRESSURE Rx# [id number] Last Released: 05/03/24 Qty/Days Supply: Rx Expiration Date: 03/14/25 Refills Remainin Indication: FOR HIGH BLOOD PRESSURE OUTPT METOPROLOL SUCCINATE 100MG SA TAB (Status = Active) TAKE ONE TABLET BY MOUTH ONCE DAILY FOR HIGH BLOOD PRESSURE Rx# [id number] Last Released: 06/26/24 Qty/Days Supply: Rx Expiration Date: 03/16/25 Refills Remainin Indication: FOR HIGH BLOOD PRESSURE Non-VA MULTIVITAMIN/MINERALS CAP/TAB TAKE ONE TABLET BY MOUTH ONCE DAILY Non-VA medication not recommended by VA provider. Indication: UNKNOWN Non-VA VENLAFAXINE HCL 75MG TAB TAKE ONE TABLET BY MOUTH ONCE DAILY Medication prescribed by Non-VA provider. ------ SUPPLIES ------ OUTPT GLUCOSE SENSOR FREESTYLE VLADISLAV 3 (Status = Discontinued) USE 1 SENSOR DIRECTED EVERY 14 DAYS Rx# [id number] Last Released: 04/06/24 Qty/Days Supply: 07/27 Rx Expiration Date: 05/31/24 Refills Remainin OUTPT GLUCOSE SENSOR FREESTYLE VLADISLAV 3 (Status = Active) USE 1 SENSOR DIRECTED EVERY 14 DAYS Rx# [id number] Last Released: 06/05/24 Qty/Days Supply: 07/27 Rx Expiration Date: 05/03/25 Refills Remainin/ JORDY PONCE MD Primary Care Physician Signed: 07/10/2024 14:18 JORDY PONCE JEDDO
== END 2024-09-27 14:00 | disposition home or self-care (01) ==
LOC: HO.HMCHD 13:07
PROVIDERS: PCP Internal Medicine; Visit Provider Internal Medicine
DX: E11.9 Type 2 diabetes mellitus without complications (principal); I25.10 Atherosclerotic heart disease of native coronary artery without angina pectoris

== ENCOUNTER → 2024-09-27 13:07 | Outpatient (BNVA) | payer MEDICARE, SELFPAY | PROVIDERS: PCP Internal Medicine; Visit Provider Internal Medicine | DX: E11.9 Type 2 diabetes mellitus without complications (principal); I10 Essential (primary) hypertension; I25.10 Atherosclerotic heart disease of native coronary artery without angina pectoris; Z79.4 Long term (current) use of insulin; Z79.84 Long term (current) use of oral hypoglycemic drugs; Z79.899 Other long term (current) drug therapy | CPT/HCPCS: 96127; 99202 ==

== ENCOUNTER 2025-01-10 13:10 | Outpatient (AMB) | payer MEDICARE, MEDICAID, SELFPAY ==
--- OUTSIDE RECORDS SUMMARY | 2025-01-10 09:02 | XMS_ITS | Continuity of Care Document ---
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 Name Role Phone [facility] Unavailable Unavailable Problems Combined list of problems [...] PONCE Comment: 06/06/19 one tubular adenoma - [facility] [place] [facility] Coronary artery disease Active Condition Nov 10, 2017 Entered By: JORDY PONCE Comment: stable chronic occlusion of the RCANov 10, 2017 Entered By: JORDY PONCE Comment: Dr Wali Beal - [facility] [place] [facility] Diabetes Mellitus Type 2 ([facility] [id number]) [facility] [place] [facility] History of [place] Active Condition Oct Entered By: JORDY PONCE Comment: 07/13/2010 - followed by Dr Beal [place] [facility] [place] [facility] HTN - Hypertension ([facility] [id number]) [facility] [place] [facility] Hyperlipidemia ([facility] [id number]) [facility] Condition [facility] [place] [facility] Active Condition Nov 10 018 Entered By: JORDY PONCE Comment: Dr Skinny Medina p) [phone] (f) [phone] [facility] [place] [facility] Obesity Active Condition [facility] [place] [facility] Obstructive sleep apnea syndrome Active Condition Nov 10, 2017 Entered By: JORDY PONCE Comment: CPAP 14psi [facility] [place] [facility] Diagnosis: ICD-10-CM 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, left eye [facility] Diagnosis: ICD-10-CM I10 Essential (primary) hypertension Active Diagnosis [place] Diagnosis: ICD-10-CM F32.A Depression, unspecified Active Diagnosis [place] Diagnosis: ICD-10-CM E11.9 Type 2 diabetes mellitus without complications Active Diagnosis [place] Diagnosis: ICD-10-CM I51.9 Heart disease, unspecified Active Diagnosis [facility] Medications Combined list of outpatient medications from Department of Defense and Veterans Affairs facilities.Medications provided include 1) outpatient medications from the last 15 months, and 2) patient-reported medications. Medication Details Route Status Patient Instructions Prescription Expires Prescription Number Last Dispense Date Ordering Provider Order Date Order Qty Source ASPIRIN 81MG TAB,EC TAKE ONE TABLET BY MOUTH DAILY ORAL ACTIVE HELEN PONCE SA 2017 [facility] ATORVASTATI N CA 40MG TAB TAKE ONE TABLET BY MOUTH ONCE DAILY FOR HIGH CHOLESTE ROL ORAL DISCONT INUED (EDIT) 04/12/2024 [id number] RAI FLOR 2022 90 [facility] ATORVASTATI N CA 80MG TAB TAKE ONE-HALF TABLET BY MOUTH ONCE DAILY FOR HIGH CHOLESTE ROL ORAL ACTIVE 03/14/2025 [id number] HELEN PONCE SA 2023 45 [place] DULAGLUTIDE 0.75MG/0.5M L INJ,SOLN,PE N INJECT 0.75MG SUBCUTAN EOUSLY ONCE A WEEK SUBCUT ANEOUS ACTIVE RAI FLOR 2022 [facility] EMPAGLIFLOZ IN 25MG/METFOR MIN 1000MG 24HR TAB,SA TAKE 1 TABLET BY MOUTH ONCE DAILY FOR TYPE 2 DIABETES ORAL SUSPEND ED 09/05/2025 [id number] 5 JANETH BANGURA 2024 90 [place] EMPAGLIFLOZ IN 25MG/METFOR MIN 1000MG 24HR TAB,SA TAKE 1 TABLET BY MOUTH ONCE DAILY FOR TYPE 2 DIABETES ORAL DISCONT INUED 08/10/2024 [id number] RAI FLOR 2023 90 [place] FENOFIBRATE 145MG TAB TAKE ONE TABLET BY MOUTH ONCE DAILY FOR HIGH CHOLESTE ROL REPLACES GEMFIBRO ZIL ORAL ACTIVE 02/20/2025 [id number] 5 JANETH BANGURA 2023 90 [place] FENOFIBRATE 145MG TAB TAKE ONE TABLET BY MOUTH ONCE DAILY FOR HIGH CHOLESTE ROL REPLACES GEMFIBRO ZIL ORAL DISCONT INUED 02/16/2024 [id number] 4 RAI FLOR 2022 90 [place] GLIPIZIDE 5MG TAB TAKE ONE TABLET BY MOUTH TWICE DAILY BEFORE A MEAL FOR TYPE 2 DIABETES MELLITUS ORAL ACTIVE 03/14/2025 [id number] HELEN PONCE SA 2023 180 [place] GLIPIZIDE 5MG TAB TAKE ONE TABLET BY MOUTH TWICE DAILY BEFORE A MEAL FOR TYPE 2 DIABETES MELLITUS ORAL DISCONT INUED (EDIT) 05/31/2024 [id number] RAI FLOR 2023 120 [place] INSULIN,GLA RGINE-YFGN 100UNIT/ML INJ PEN,3ML INJECT 23 UNITS SUBCUTAN EOUSLY ONCE DAILY SUBCUT ANEOUS ACTIVE RAI FLOR 2023 [place] LISINOPRIL 5MG TAB TAKE ONE TABLET BY MOUTH ONCE DAILY TO CONTROL BLOOD PRESSURE ORAL ACTIVE 03/14/2025 [id number] HELEN PONCE SA 2023 90 [place] LISINOPRIL 5MG TAB TAKE ONE TABLET BY MOUTH ONCE DAILY TO CONTROL BLOOD PRESSURE (FROM DR SKINNY MEDINA) ORAL 02/16/2024 [id number] 4 RAI FLOR 2022 90 [place] METOPROLOL SUCCINATE 100MG TAB,SA TAKE ONE TABLET BY MOUTH ONCE DAILY FOR HIGH BLOOD PRESSURE ORAL ACTIVE 03/16/2025 [id number] HELEN PONCE SA 2023 90 [place] METOPROLOL SUCCINATE 100MG TAB,SA TAKE ONE TABLET BY MOUTH ONCE DAILY FOR CHRONIC HEART FAILURE FOR BLOOD PRESSURE /HEART ORAL 01/01/2024 [id number] NJLEE CESPEDES 2022 90 [place] MULTIVIT/OP HTH AREDS2/LUTE IN/ZEAXANTH IN CAP/TAB TAKE 1 CAPSULE BY MOUTH TWICE DAILY IN THE MORNING AND EVENING, WITH FOOD ORAL ACTIVE 11/13/2025 [id number] TIFFANI NOBLES AH B 2024 [facility] MULTIVITAMI NS W/MINERALS TAB TAKE ONE TABLET BY MOUTH ONCE DAILY ORAL ACTIVE RAI FLORM REGGIE 2022 [place] VENLAFAXINE HCL 75MG TAB TAKE TWO TABLETS BY MOUTH ONCE DAILY ORAL ACTIVE HELEN PONCE SA [place] Immunizations Combined list of available immunizations from the Department of Defense and Veterans Affairs facilities. Immunization Series Date Given Administered By Site Reaction Lot Number CVX Code Drug [employer] Counselor Status Comments Source INFLUENZA, UNSPECIFIED FORMULATION 2023 88 complet ed HISTORICA L INFORMATI ON - [facility] PROVID[facility] COVID-19 (CorkCRM), MRNA, LNP-S, BIVALENT BOOSTER, PF, 30 MCG/0.3 ML DOSE 3 2021 300 complet ed HISTORICA L INFORMATI ON - SOURCE UNSPECIFI ED, [facility] INFLUENZA, UNSPECIFIED FORMULATION 2021 88 complet ed HISTORICA L INFORMATI ON - SOURCE UNSPECIFI ED, [facility] COVID-19 (CorkCRM), MRNA, LNP-S, PF, 30 MCG/0.3 ML DOSE 2 2020 208 complet ed PFR; [id number]; 1 [facility]-19 (Cork[facility]M), MRNA, LNP-S, PF, 30 MCG/0.3 ML DOSE 1 2020 208 complet ed PFR; [id number]; 1 [facility] INFLUENZA, INJECTABLE, QUADRIVALENT, PRESERVATIVE FREE 2018 150 [...] Jul 13, 2023 02:33 PM Reporting Lab: [facility] [address] [address] Performing Lab: [facility]N [facility] [address] [facility] LIPID PANEL FASTING TRIGLYCERI DE [MASS/VOLU ME] IN SERUM OR PLASMA 203 mg/dL 0 - 150 07/04 H Specimen Type: SERUM No comment entered. Ordering Provider: JORDY PONCE Report Released Date/Time: Jul 13, 2023 02:33 PM Reporting Lab: [facility] [address] [facility] [address] Performing Lab: [facility]N [facility] [address] [facility]ERYRCENTR[facility] LIPID PANEL FASTING CHOLESTERO L IN LDL [MASS/VOLU ME] IN SERUM OR PLASMA BY CALCULATIO N 94 mg/dL 0 - 129 07/04 Specimen Type: SERUM No comment entered. Ordering Provider: JORDY PONCE Report Released Date/Time: Jul 13, 2023 02:33 PM Reporting Lab: [facility] [place] [facility] [address] [facility] [address] Performing Lab: [facility]N [facility] [address] [facility]ERYRCENTRAL [facility]N [facility] LIPID PANEL FASTING CHOLESTERO L.TOTAL/CH OLESTEROL IN HDL [MASS RATIO] IN SERUM OR PLASMA 4.5 07/04 Specimen Type: SERUM No comment entered. Ordering Provider: JORDY PONCE Report Released Date/Time: Jul 13, 2023 02:33 PM Reporting Lab: [facility] [place] [facility] [address] [facility] [address] Performing Lab: [facility] [place] [address] [address] [facility] [place] [facility] LIPID PANEL FASTING CHOLESTERO L IN HDL [MASS/VOLU ME] IN SERUM OR PLASMA 39 mg/dL 40 - 60 07/04 L Specimen Type: SERUM No comment entered. Ordering Provider: JORDY PONCE Report Released Date/Time: Jul 13, 2023 02:33 PM Reporting Lab: [facility] [place] [address] [address] Performing Lab: [facility] [place] [address] [address] [facility] LIVER FUNCTION PROTEIN [MASS/VOLU ME] IN SERUM OR PLASMA 7.4 g/dL 6.0 - 8.3 07/04 Specimen Type: SERUM No comment entered. Ordering Provider: JORDY PONCE Report Released Date/Time: Jul 13, 2023 02:33 PM Reporting Lab: [facility] [place] [address] [address] Performing Lab: [facility] [place] [address] [address] [facility] [place] [facility] LIVER FUNCTION ALBUMIN [MASS/VOLU ME] IN SERUM OR PLASMA 3.7 g/dL 3.5 - 5.0 07/04 Specimen Type: SERUM No comment entered. Ordering Provider: JORDY PONCE Report Released Date/Time: Jul 13, 2023 02:33 PM Reporting Lab: [facility] [place] [address] [address] Performing Lab: [facility] [place] [address] [address] [facility] [place] [facility] LIVER FUNCTION ALKALINE PHOSPHATAS E [ENZYMATIC ACTIVITY/V OLUME] IN SERUM OR PLASMA 39 U/L 40 - 150 07/04 L Specimen Type: SERUM No comment entered. Ordering Provider: JORDY PONCE Report Released Date/Time: Jul 13, 2023 02:33 PM Reporting Lab: [facility] [place] [facility] [address] [facility] [address] Performing Lab: [facility] [place] [facility] [address] [facility] [address] [facility] [facility] LIVER FUNCTION ASPARTATE AMINOTRANS FERASE [ENZYMATIC ACTIVITY/V OLUME] IN SERUM OR PLASMA 28 U/L 5 - 34 07/04 Specimen Type: SERUM No comment entered. Ordering Provider: JORDY PONCE Report Released Date/Time: Jul 13, 2023 02:33 PM Reporting Lab: [facility] [place] [facility] [address] [facility] [address] Performing Lab: [facility] [place] [facility] [address] [facility] [address] [facility] [place] [facility] LIVER FUNCTION ALANINE AMINOTRANS FERASE [ENZYMATIC ACTIVITY/V OLUME] IN SERUM OR PLASMA 32 U/L 07/04 Specimen Type: SERUM No comment entered. Ordering Provider: JORDY PONCE Report Released Date/Time: Jul 13, 2023 02:33 PM Reporting Lab: [facility] [place] [facility] [address] [facility] [address] Performing Lab: [facility] [place] [facility] [address] [facility] [address] [place] [facility] [facility] LIVER FUNCTION BILIRUBIN. TOTAL [MASS/VOLU ME] IN SERUM OR PLASMA 0.5 mg/dL 0.2 - 1.2 07/04 Specimen Type: SERUM No comment entered. Ordering Provider: JORDY PONCE Report Released Date/Time: Jul 13, 2023 02:33 PM Reporting Lab: [facility] [place] [facility] [address] [facility] [address] Performing Lab: [facility] [place] [facility] [address] [facility] [address] [facility] [place] [facility] BASIC METABOLIC PANEL (fasting) UREA NITROGEN [MASS/VOLU ME] IN SERUM OR PLASMA 18 mg/dL 7 - 25 07/04 Specimen Type: SERUM No comment entered. Ordering Provider: JORDY PONCE Report Released Date/Time: Jul 13, 2023 02:33 PM Reporting Lab: [facility] [place] [facility] [address] [facility] [address] Performing Lab: [facility] [place] [facility] [address] [facility] [address] [facility] [place] [facility] BASIC METABOLIC PANEL (fasting) GLUCOSE [MASS/VOLU ME] IN SERUM OR PLASMA 139 mg/dL 65 - 100 07/04 H Specimen Type: SERUM No comment entered. Ordering Provider: JORDY PONCE Report Released Date/Time: Jul 13, 2023 02:33 PM Reporting Lab: [facility] [place] [facility] [address] [facility] [address] Performing Lab: [facility] [place] [facility] [address] [facility] [address] [facility] [place] [facility] BASIC METABOLIC PANEL (fasting) SODIUM [MOLES/VOL UME] IN SERUM OR PLASMA 138 mmol/L 135 - 145 07/04 Specimen Type: SERUM No comment entered. Ordering Provider: JORDY PONCE Report Released Date/Time: Jul 13, 2023 02:33 PM Reporting Lab: [facility] [place] [facility] [address] [facility] [address] Performing Lab: [facility] [place] [facility] [address] [facility] [address] [facility] [facility] BASIC METABOLIC PANEL (fasting) POTASSIUM [MOLES/VOL UME] IN SERUM OR PLASMA 5.3 mmol/L 3.5 - 5.0 07/04 H Specimen Type: SERUM No comment entered. Ordering Provider: JORDY PONCE Report Released Date/Time: Jul 13, 2023 02:33 PM Reporting Lab: [facility] [place] [facility] [address] [facility] [address] Performing Lab: [facility] [place] [facility] [address] [facility] [address] [facility] BASIC METABOLIC PANEL (fasting) CHLORIDE [MOLES/VOL UME] IN SERUM OR PLASMA 102 mmol/L 100 - 110 07/04 Specimen Type: SERUM No comment entered. Ordering Provider: JORDY PONCE Report Released Date/Time: Jul 13, 2023 02:33 PM Reporting Lab: [facility] [place] [facility] [address] [facility] [address] Performing Lab: [facility] [place] [facility] [address] [facility] [address] [facility] [facility] BASIC METABOLIC PANEL (fasting) CARBON DIOXIDE, TOTAL [MOLES/VOL UME] IN SERUM OR PLASMA 26 meq/L 20 - 30 07/04 Specimen Type: SERUM No comment entered. Ordering Provider: JORDY PONCE Report Released Date/Time: Jul 13, 2023 02:33 PM Reporting Lab: [facility] [place] [facility] [address] [facility] [address] Performing Lab: [facility] [place] [facility] [address] [facility] [address] [facility] [place] [facility] BASIC METABOLIC PANEL (fasting) CREATININE [MASS/VOLU ME] IN SERUM OR PLASMA 1.10 mg/dL 0.50 - 1.40 07/04 Specimen Type: SERUM No comment entered. Ordering Provider: JORDY PONCE Report Released Date/Time: Jul 13, 2023 02:33 PM Reporting Lab: [facility] [place] [facility] [address] [facility] [address] Performing Lab: [facility] [place] [facility] [address] [facility] [address] [facility] [place] [facility] BASIC METABOLIC PANEL (fasting) GLOMERULAR FILTRATION RATE/1.73 SQ M.PREDICTE D [VOLUME RATE/AREA] IN SERUM, PLASMA OR BLOOD BY CREATININE -BASED FORMULA (CKD-EPI 2020) 74 mL/min 60 07/04 Specimen Type: SERUM No comment entered. Ordering Provider: JORDY PONCE Report Released Date/Time: Jul 13, 2023 02:33 PM Reporting Lab: [facility] [place] [facility] [address] [facility] [address] Performing Lab: [facility] [place] [facility] [address] [facility] [address] [facility] [facility] MICROALBU MIN CREATININ E RATIO PANEL MICROALBUM IN/CREATIN INE [MASS RATIO] IN URINE 53.5 mg/g 0 - 29.9 07/04 H Specimen Type: URINE No comment entered. Ordering Provider: JORDY PONCE Report Released Date/Time: Jul 13, 2023 02:33 PM Reporting Lab: [facility] [place] [address] [address] Performing Lab: [facility] [place] [facility] [address] [facility] [address] [facility] MICROALBU MIN CREATININ E RATIO PANEL MICROALBUM IN [MASS/VOLU ME] IN URINE 3.7 mg/dL 07/04 Specimen Type: URINE No comment entered. Ordering Provider: JORDY PONCE Report Released Date/Time: Jul 13, 2023 02:33 PM Reporting Lab: [facility] [place] [facility] [address] [facility] [address] Performing Lab: [facility] [place] [facility] [address] [facility] [address] [facility] [place] [facility] MICROALBU MIN CREATININ E RATIO PANEL CREATININE [MASS/VOLU ME] IN URINE 69.22 mg/dL 07/04 Specimen Type: URINE No comment entered. Ordering Provider: JORDY PONCE Report Released Date/Time: Jul 13, 2023 02:33 PM Reporting Lab: [facility] [place] [address] [address] Performing Lab: [facility] [address] [facility] [address] [facility] HEMOGLOBI N A1C PANEL HEMOGLOBIN A1C/HEMOGL OBIN.TOTAL IN BLOOD BY HPLC 6.5 4.0 - 5.6 07/04 H Specimen Type: BLOOD Comment: Values obtained [...] Jul 13, 2023 02:33 PM Reporting Lab: [address] [address] Performing Lab: [address] [address] [facility] HEMOGLOBI N A1C PANEL HEMOGLOBIN A1C/HEMOGL [...] Jan 11, 2024 01:00 PM Reporting Lab: [address] [address] Performing Lab: [address] [address] [facility] MICROALBU MIN CREATININ E RATIO PANEL MICROALBUM IN/CREATIN INE [MASS RATIO] IN URINE 64.7 mg/g 0 - 29.9 07/12 H Specimen Type: URINE No comment entered. Ordering Provider: JORDY PONCE Report Released Date/Time: Jul 13, 2022 05:58 AM Reporting Lab: [facility] [place] [facility] [address] [facility] [address] Performing Lab: [facility] [place] [facility] [address] [facility] [address] [facility] [facility] MICROALBU MIN CREATININ E RATIO PANEL MICROALBUM IN [MASS/VOLU ME] IN URINE 3.8 mg/dL 07/12 Specimen Type: URINE No comment entered. Ordering Provider: JORDY PONCE Report Released Date/Time: Jul 13, 2022 05:58 AM Reporting Lab: [facility] [place] [facility] [address] [facility] [address] Performing Lab: [facility] [place] [facility] [address] [facility] [address] [facility] [place] [facility] MICROALBU MIN CREATININ E RATIO PANEL CREATININE [MASS/VOLU ME] IN URINE 58.70 mg/dL 07/12 Specimen Type: URINE No comment entered. Ordering Provider: JORDY PONCE Report Released Date/Time: Jul 13, 2022 05:58 AM Reporting Lab: [facility] [place] [facility] [address] [facility] [address] Performing Lab: [facility] [place] [facility] [address] [facility] [address] [facility] [place] [facility] LIPID PANEL FASTING CHOLESTERO L [MASS/VOLU ME] IN SERUM OR PLASMA 178 mg/dL 07/08 Specimen Type: SERUM No comment entered. Ordering Provider: JORDY PONCE Report Released Date/Time: Jul 13, 2022 05:58 AM Reporting Lab: [facility] [place] [facility] [address] [facility] [address] Performing Lab: [facility] [place] [address] [address] [facility] [facility] LIPID PANEL FASTING TRIGLYCERI DE [MASS/VOLU ME] IN SERUM OR PLASMA 320 mg/dL 0 - 150 07/08 H Specimen Type: SERUM No comment entered. Ordering Provider: JORDY PONCE Report Released Date/Time: Jul 13, 2022 05:58 AM Reporting Lab: [facility] [place] [facility] [address] [facility] [address] Performing Lab: [facility] [place] [facility] [address] [facility] [address] [facility] [place] [facility] LIPID PANEL FASTING CHOLESTERO L IN LDL [MASS/VOLU ME] IN SERUM OR PLASMA BY CALCULATIO N Reflex to dLDLmg/ dL 0 - 129 07/08 Specimen Type: SERUM No comment entered. Ordering Provider: JORDY PONCE Report Released Date/Time: Jul 13, 2022 05:58 AM Reporting Lab: [facility] [place] [address] [address] Performing Lab: [facility] [place] [address] [address] [facility] LIPID PANEL FASTING CHOLESTERO L.TOTAL/CH OLESTEROL IN HDL [MASS RATIO] IN SERUM OR PLASMA 5.2 07/08 Specimen Type: SERUM No comment entered. Ordering Provider: JORDY PONCE Report Released Date/Time: Jul 13, 2022 05:58 AM Reporting Lab: [facility] [place] [address] [address] Performing Lab: [facility] [place] [address] [address] [facility] [facility] LIPID PANEL FASTING CHOLESTERO L IN HDL [MASS/VOLU ME] IN SERUM OR PLASMA 34 mg/dL 40 - 60 07/08 L Specimen Type: SERUM No comment entered. Ordering Provider: JORDY PONCE Report Released Date/Time: Jul 13, 2022 05:58 AM Reporting Lab: [facility] [place] [address] [address] Performing Lab: [facility] [place] [address] [address] [facility] W[facility]N [facility] LIPID PANEL FASTING CHOLESTERO L IN LDL [MASS/VOLU ME] IN SERUM OR PLASMA BY DIRECT ASSAY 106 mg/dL 07/08 Specimen Type: SERUM No comment entered. Ordering Provider: JORDY PONCE Report Released Date/Time: Jul 13, 2022 05:58 AM Reporting Lab: [facility] [facility] [address] [facility] [address] Performing Lab: [facility] [place] [facility] [address] [facility] [address] [facility] HEMOGLOBI N A1C PANEL HEMOGLOBIN A1C/HEMOGL OBIN.TOTAL [...] Jul 13, 2022 05:58 AM Reporting Lab: [facility] [address] [facility] [address] Performing Lab: [place] [facility] [address] [facility] [address] [facility]RL [facility] LIVER FUNCTION PROTEIN [MASS/VOLU ME] IN SERUM OR PLASMA 7.3 g/dL 6.0 - 8.3 07/08 Specimen Type: SERUM No comment entered. Ordering Provider: JORDY PONCE Report Released Date/Time: Jul 13, 2022 05:58 AM Reporting Lab: [facility] [facility] [address] [facility] [address] Performing Lab: [place] [facility]ITAL[facility] [address] [facility] [address] [facility]ERYRL TRN [facility]ITALUSE [facility] LIVER FUNCTION ALBUMIN [MASS/VOLU ME] IN SERUM OR PLASMA 3.9 g/dL 3.5 - 5.0 07/08 Specimen Type: SERUM No comment entered. Ordering Provider: JORDY PONCE Report Released Date/Time: Jul 13, 2022 05:58 AM Reporting Lab: [facility] [place] [facility] [address] [facility] [phone] Performing Lab: [facility] [place] [facility] [address] [facility] [address] [facility] [place] [facility] LIVER FUNCTION ALKALINE PHOSPHATAS E [ENZYMATIC ACTIVITY/V OLUME] IN SERUM OR PLASMA 39 U/L 40 - 150 07/08 L Specimen Type: SERUM No comment entered. Ordering Provider: JORDY PONCE Report Released Date/Time: Jul 13, 2022 05:58 AM Reporting Lab: [facility] [place] [address] [address] Performing Lab: [facility] [place] [facility] [address] [facility] [address] [facility] LIVER FUNCTION ASPARTATE AMINOTRANS FERASE [ENZYMATIC ACTIVITY/V OLUME] IN SERUM OR PLASMA 28 U/L 5 - 34 07/08 Specimen Type: SERUM No comment entered. Ordering Provider: JORDY PONCE Report Released Date/Time: Jul 13, 2022 05:58 AM Reporting Lab: [facility] [place] [address] [address] Performing Lab: [facility] [place] [facility] [address] [facility] [address] [facility] [place] [facility] LIVER FUNCTION ALANINE AMINOTRANS FERASE [ENZYMATIC ACTIVITY/V OLUME] IN SERUM OR PLASMA 35 U/L 07/08 Specimen Type: SERUM No comment entered. Ordering Provider: JORDY PONCE Report Released Date/Time: Jul 13, 2022 05:58 AM Reporting Lab: [facility] [place] [address] [address] Performing Lab: [facility] [place] [address] [address] [facility] [place] [facility] LIVER FUNCTION BILIRUBIN. TOTAL [MASS/VOLU ME] IN SERUM OR PLASMA 0.5 mg/dL 0.2 - 1.2 07/08 Specimen Type: SERUM No comment entered. Ordering Provider: JORDY PONCE Report Released Date/Time: Jul 13, 2022 05:58 AM Reporting Lab: [facility] [address] [facility] [id number] Performing Lab: [facility] [address] [facility] [address] [facility] Vital Signs Combined list of inpatient and [...] ADM Date DC Date Status Disposition Source [place] BY PHARM ADDL 15 MIN [id number] Diagnos is: ICD-10- CM E11.9 Type 2 diabete s mellitu s without complic ations BASIA,WILL KIANA PAREDES 07/13 [facility] [place] OFF[place] O/P EST MOD 30 MIN [id number] Diagnos is: ICD-10- CM I10 Essenti al (primar y) hyperte nsion PRAVIN PONCE ARLEEN 07[place]13 [place] [facility] Outpatient Encounter [id number] 07/13 [facility] Outpatient Encounter [id number] 07/13 [facility] [place] BY PHARM ADDL 15 MIN [id number] Diagnos is: ICD-10- CM E11.9 Type 2 diabete s mellitu s without complic ations BASIA,WILL KIANA PAREDES 08/09 [facility] [place] MTMS BY PHARM ADDL 15 MIN [id number] Diagnos is: ICD-10- CM E11.9 Type 2 diabete s mellitu s without complic ations BASIA,WILL K[place]NA PAREDES 09/20 [place] [facility] QNHP OL DIG ASSMT&MGMT 5-10 [id number] Diagnos is: ICD-10- CM I51.9 Heart disease , unspeci fied ARYA LOVELL 09/21 [facility] [place] W PT 45 MINUTES [id number] Diagnos is: ICD-10- CM F32.A Depress ion, unspeci fied German LAZARO ILL M 10/16 [place] [facility] [place] 1/ [id number] Diagnos is: ICD-10- CM E11.9 Type 2 diabete s mellitu s without complic ations GORDON NOBLES Meche 11/07 [facility] Out[facility] Encounter [id number] [facility] [place] W PT 30 MINUTES [id number] Diagnos is: ICD-10- CM F32.A Depress ion, unspeci fied DIRKGerman GUZMAN ILL M 11/08 [place] [facility] Out[facility] Encounter [id number] [facility] [place] BY PHARM ADDL 15 MIN [id number] Diagnos is: ICD-10- CM E11.9 Type 2 diabete s mellitu s without complic ations SAMUEL FLOR 11/14 [place] [facility] Outpatient Encounter [id number] 11/20 [facility] [place] BY PHARM ADDL 15 MIN [id number] Diagnos is: ICD-10- CM E11.9 Type 2 diabete s mellitu s without complic ations SAMUEL FLOR 01/10 [place] [facility] Outpatient Encounter [id number] 02/13 [facility] [place] W PT 30 MINUTES [id number] Diagnos is: ICD-10- CM F32.A Depress ion, unspeci fied IVETH,J ILL M 02/28 [place] [facility] Outpatient Encounter [id number] [facility] Out[facility] Encounter [id number] 03/13 [facility] Out[facility] Encounter [id number] 05/01 [facility] Out[facility] Encounter [id number] [facility] Encounter [id number] 06/27 [facility] Encounter [id number] 07/03 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 Social History Type Response Date Comment Sour e Tobacco smoking status NHIS VA-TOBACCO USE FORMER CIGARETTES 07/10/2024 [place] History of tobacco use [place]-TOBACCO NEVER USED OTHER TYPE 07/10/2024 [place] History of tobacco use VA-TOBACCO FORMER USER 07/13/2023 [place] History of tobacco use VT-TOBACCO QUIT 5 TO < 15 YRS 07/13/2022 [place] History of tobacco use VA-TOBACCO FORMER USER 06/24/2021 [place] History of tobacco use VT-TOBACCO QUIT 5 TO < 15 YRS 10/25/2018 [place] History of tobacco use QUIT TOBACCO USE > 7 YEARS AGO 10/10/2017 [place] Plan of Care List of future care activities from [facility] facilities. Additional future care activities may be listed in the Assessment and Plan section. Date/Time Care Activity Care Activity Detail Facili ty 06/27/2025 AMBULATORY - MEDICINE [facility] Advance Directives List of completed, amended, or rescinded Advance Directives on record at Department of Veterans Affairs facilities. An actual copy of the Directive is not included. Date Advance Directive Provider Source 06/15/2018 ADVANCE DIRECTIVE ROYA ARCE [facility]
[2025-01-10 13:12] VITALS: BP 128/72; PULSE 90; TEMP 36.2; O2SAT 98; BMI 40.3
--- NOTE | 2025-01-10 13:12 | MHC.PC.OV ---
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 [facility]: GMI 8.0%. A1C 6.8% May. Worse diet over the summer. On metformin 1000mg daily, trulicity 0.75mg weekly, jardiance, glipizide, lantus 23 units daily. [facility] guille [facility] the [facility]. GMI 8.0%. Will increase to trulicity 1.5 today. Eye exam is up to date. will return in 5 months. Early of macular degeneration CV: on metoprolol, lisinopril, atorvastatin. 128/72. History of MA medically managed previously following with Dr Beal. Has upcoming cardiology appt. Colonoscopy [address] Arriaza. ROS CONSTITUTIONAL: Denies weight loss, fever and chills. HEENT: Denies changes in vision and hearing. RESPIRATORY: Denies SOB and cough. CV: Denies palpitations and CP GI: Denies abdominal pain, nausea, vomiting and diarrhea. : Denies dysuria and urinary frequency. MSK: Denies new myalgia and joint pain. SKIN: Denies rash and pruritus. NEUROLOGICAL: Denies headache PSYCHIATRIC: Denies recent changes in mood. PHYSICAL EXAM: GENERAL: Alert and oriented x 3. NAD EYES: EOMI. Anicteric. HENT: Moist mucous membranes. No scleral icterus. No cervical lymphadenopathy. LUNGS: Clear to auscultation bilaterally. CARDIOVASCULAR: Regular rate and rhythm. No murmur. No JVD. ABDOMEN: Soft, non-tender +bs EXTREMITIES: No edema. Non-tender. SKIN: No rashes or lesions. Warm. NEUROLOGIC: No focal neurological deficits. CN II-XII grossly intact PSYCHIATRIC: Cooperative. Appropriate mood and affect [facility] Family History Father No problems noted. Mother No problems noted. Social History Housing: Apartment Alcohol intake: current Alcohol intake frequency: a few times a month Patient Tobacco Use Status: Former Tobacco user e-Cigarette/Vaping Use: Never Used service: Yes Current occupational status: retired Cognitive needs: No Hearing needs: No Vision needs: Yes (reading glasses) Questionnaire PHQ-9 Over the last 2 weeks, how often have you been bothered by any of the following problems? 1. Little interest or pleasure in doing things: not at all 2. Feeling down, depressed, or hopeless: not at all 3. Trouble falling or staying asleep, or sleeping too much: not at all 4. Feeling tired or having little energy: not at all 5. Poor appetite or overeating: not at all 6. Feeling bad about yourself - or that you are a failure or have let yourself or your family down: not at all 7. Trouble concentrating on things, such as reading the newspaper or watching television: not at all 8. Moving or speaking so slowly that other people could have noticed. Or the opposite - being so fidgety or restless that you have been moving around a lot more than usual: not at all 9. Thoughts that you would be better off or of hurting yourself in some way: not at all Total score: 0 Depression Screening Interpretation: Negative Depression Screening Done: Yes 96095 - PHQ-9 Billing: Yes Source: Developed by Drs. Sergio Louis, Rhianna Holder, Bill Joshi and colleagues, with an educational shabbir from [employer]. Thrive Questionnaire Date Thrive assessed: 01/10/25 I am a: Patient Within the past 12 months, did the food you bought not last and you didn't have the money to get more?: Never true Within the past 12 months, did you worry whether your food would run out before you got money to buy more?: Never true Do you have trouble paying for medicines?: No Do you have trouble getting transportation to medical appointments?: No Do you have trouble paying your heating and electricity bill?: No Do you have trouble taking care of your child, family member or friend?: No Do you have trouble with day-to-day activities such as bathing, preparing meals, shopping, managing finances, etc.?: No Are you currently unemployed and looking for a job?: No Are you interested in more education?: No THRIVE Score: 0 AUDIT C Alcohol Use Questionnaire (AUDIT-C) 1. How often do you have a drink containing alcohol?: Monthly or less 2. How many drinks containing alcohol do you have on a typical day when you are drinking?: 1 or 2 3. How often do you have six or more drinks on one occasion?: Less than monthly Total Score: 2 ROYER-7 AMB Questionnaire ROYER-7 Date ROYER - 7 assessed: 01/10/25 Feeling nervous, anxious, or on edge: 0 = Not at all Not being able to stop or control worryin = Not at all Worrying too much about different things: 0 = Not at all Trouble relaxin = Not at all Being so restless that it is hard to sit still: 0 = Not at all Becoming easily annoyed or irritable: 0 = Not at all Feeling afraid as if something awful might happen: 0 = Not at all Total ROYER-7 score (0-4 normal; 5-9 mild; 10-14 moderate; 15-21 severe): 0 Source: Developed by Drs. Sergio Louis, Rhianna Holder, Bill Joshi and colleagues, with an educational shabbir from [employer]. Physical exam (Primary Care) Vital Signs: Last Vital Signs Temp 97.1 F 01/10/25 13:12 Pulse 90 01/10/25 13:12 BP 128/72 01/10/25 13:12 Pulse Ox 98 01/10/25 13:12 Oxygen Delivery Method Room Air 01/10/25 13:12 BMI result Body Mass Index 40.3 Tobacco/Smoking Status: Tobacco use Status Tobacco use date assessed 01/10/25 01/10/25 13:14 Patient Tobacco Use Status Former Tobacco user 01/10/25 13:14 e-Cigarette/Vaping Use Never Used 01/10/25 13:14 PHQ-9: PHQ-9 Score PHQ-9: Total score 0 01/10/25 13:20 Depression Screening Interpretation: Negative Thrive Assessment: Date of Thrive Assessment Date Thrive assessed 01/10/25 01/10/25 13:14 Coding Level of Care Code Est Pt Level 4 (39961) Complex EM visit Add On G2211 Diagnoses Type 2 diabetes mellitus without complication, without long-term current use of insulin E11.9 Diabetes mellitus type: type 2 Diabetes mellitus senior living insulin use: without senior living use Diabetes mellitus complication status: without complication Coronary artery disease involving [place] coronary artery without angina pectoris, unspecified whether [place] or transplanted heart I25.10 Coronary Disease-Associated Artery/Lesion type: [place] artery [place] vs. 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 transplanted heart: unspecified whether [place] or transplanted heart Associated angina: without angina Qualified Code(s): I25.10 - Atherosclerotic heart disease of [place] coronary artery without angina pectoris Plan Diabetes, uncontrolled. Increase trulicity to 1.5. continue all other medication at current doses. Labs, follow up 3 months. continue eye exams HTN-well controlled on current medications. upcoming cardiology appt Orders: Orders Hemoglobin A1c 3 Months E11.9 - Type 2 diabetes mellitus without complications Comprehensive Met. Panel 3 Months E11.9 - Type 2 diabetes mellitus without complications Lipid Panel 3 Months E11.9 - Type 2 diabetes mellitus without complications Microalbumin, Random (w Creat) 3 Months E11.9 - Type 2 diabetes mellitus without complications Medications: New lisinopril 5 mg PO DAILY 90 tabs 3RF Trulicity (dulaglutide) 1.5 mg (0.5 mL) subcut QWEEK 6 mL 3RF NS E11.9 - Type 2 diabetes mellitus without complications pen needle, diabetic once daily with insulin once weekly with trulicity 200 ea 3RF E11.9 - Type 2 diabetes mellitus without complications nitroglycerin do not exceed 3 doses per episode 0.4 mg sublingual ONCE PRN 30 tabs 1RF chest pain fenofibrate nanocrystallized 145 mg PO DAILY 90 tabs 3RF Refilled atorvastatin 40 mg PO BEDTIME 90 tabs 3RF Discontinued dulaglutide (Trulicity) Discontinued Reason: Doctor's Order 0.75 mg (0.5 mL) subcut QWEEK 4 mL 2RF
--- OUTSIDE RECORDS SUMMARY | 2025-01-10 14:03 | XMS_ITS | Patient Health Record ---
Author Organization [facility] Address [address] [place] [id number] Care Team Providers Care Moccasin Sewer Name Role Phone JORDY PONCE M.D. Primary Care Provider Evelio Glaser Jr Unavailable Reason For Referral No Information Medications Medication SIG (Take, Route, Frequency, Duration) Notes Start Date End Date Status Atorvastatin Calcium 40 MG 1 tablet Oral ly Once a day for 30 day(s) Active metFORMIN HCl 500 MG 1 tablet with a nabeel l Orally twice a day Active glipiZIDE 5 MG 1 tablet Orally twic e a day Active Lisinopril 5 MG 1 tablet Orally Once a day for 30 day(s) Active Venlafaxine HCl 75 MG 1 tablet with food Orally Once a day for 30 day(s) Active Metoprolol Succinate 100 MG 1 capsule Or ally Once a day for 30 day(s) Active Basaglar KwikPen 100 UNIT/ML 24 units Subcutaneous once a day Active MiraLax (colon prep) 8.3 ounce ((238) grams mixed with Gatorade or Crystal Light orally begin at 5:00 p.m. the day before the procedure for 1 day 03/14/2019 Active Fish Oil 1000 MG 1 capsule Orally Twi ce a day Active Nitroglycerin 0.4 MG as directed Subling ual prn Active Scalp Relief Maximum Strength 1 % 1 application to affected area Externally Once a day Active Immunizations Vaccine Route Administration Date Status Comme nts Influenza Unknown 03/30/2018 Administered Social History Tobacco Use: Social History Observation Description Date Details (start date - stop date) Former Smoker NA - NA Tobacco Use/Smoking Question Answer Notes Patient is a former smoker How long has it been since you last smoked? 5-10 years Alcohol Screen Question Answer Notes Did you have a drink contain ing alcohol in the past year? Yes How often did you have a dri nk containing alcohol in the past year? 2 to 4 times a month (2 points) How many drinks did you have on a typical day when you were drinking in the past year? 1 or 2 drinks (0 point) How often did you have 6 or more drinks on one occasion in the past year? 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) Active confirmed Plan Of Treatment Future Test Test Name Order Date COLONOSCOPY 03/14/2019 Insurance Providers Payer Name Payer Address Payer Phone Subscriber Number Group Number Insured Name Patient Relationship to Insured Coverage Start Date Coverage End Date [facility] [id number] [place] [phone] [id number] SAMEER CARPENTER Self - patient is the insured Medical (General) History Medical History History ICD Code type II diabetes hypertension coronary artery disease with history of [place] in 2014 and obstructive sleep apnea/CPAP Surgical History Surgery Date(Month/Year) appendectomy kidney stone removals cyst removal on back
== END 2025-01-10 14:04 | disposition home or self-care (01) ==
LOC: HO.HMCHD 13:11
PROVIDERS: PCP Internal Medicine; Visit Provider Internal Medicine
DX: E11.9 Type 2 diabetes mellitus without complications (principal); I25.10 Atherosclerotic heart disease of native coronary artery without angina pectoris

== ENCOUNTER → 2025-01-10 13:10 | Outpatient (BNVA) | payer MEDICARE, OTHER, SELFPAY | PROVIDERS: PCP Internal Medicine; Visit Provider Internal Medicine | DX: E11.9 Type 2 diabetes mellitus without complications (principal); I25.10 Atherosclerotic heart disease of native coronary artery without angina pectoris | CPT/HCPCS: 96127; 99212 ==

== ENCOUNTER 2025-02-21 13:54 | Outpatient (AMB) | payer MEDICARE, SELFPAY ==
--- NOTE | 2025-02-21 14:01 | A.OFFVIS_ITS ---
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 Required: No Accompanied by: Self / Same As Patient Allergies No Known Allergies (No Known Allergies*) Allergy (Verified 01/10/25 13:13) Medication List - Last Reconciled 02/21/25 by Jabier Lynne MD atorvastatin 40 mg PO BEDTIME blood-glucose sensor (FreeStyle Lamar 3 Sensor device) As directed empagliflozin 25 mg PO DAILY fenofibrate nanocrystallized 145 mg PO DAILY glipizide 5 mg PO BID insulin glargine (Lantus Solostar U-100 Insulin) 23 units (0.23 mL) subcut DAILY lisinopril 5 mg PO DAILY metformin 1,000 mg PO DAILY metoprolol succinate ER 100 mg PO DAILY nitroglycerin 0.4 mg sublingual ONCE PRN pen needle, diabetic As directed- once weekly with Trulicity pen needle, diabetic once daily with insulin once weekly with trulicity Trulicity (dulaglutide) 1.5 mg (0.5 mL) subcut QWEEK NS venlafaxine ER 150 mg PO DAILY HPI Comments Details: Thank you for referring Juan's in cardiology consultation for management of his chronic coronary artery disease. He is a pleasant 69-year-old male with prior history of myocardial infarction 13 years ago at age of 56 when he suddenly developed significant retrosternal chest pressure radiating to left arm like elephant sitting on his chest. He did not feel well and went to the emergency room and was immediately taken to the catheterization lab at [facility] [place]. He said however they were not successful in intervening on his arteries, unsure as to which artery it was. We tried to review records from [facility] [place] and did not obtain any cardiac catheterization report from that time. However EKG today suggestive of inferior [place] and appears that this could be possibly RCA related infarct. Patient since then has done well. Post [place] he did have symptoms of angina however he increase his activity level eventually over time his angina dissipated. He is currently not having any symptoms of angina, however recently has been limited in activity level for walking only half a mi due to back pain. He does not have any symptoms of claudication. Denies any symptoms of shortness of breath, orthopnea, PND, leg edema. Said his hemoglobin A1c is much better controlled with current diet modification as well as medication management. He has last LDL also well optimized at 61 mg/dL. His blood pressure has been well controlled. He denies any prolonged palpitation irregular heartbeat. No lightheadedness, syncope. Takes his medications religiously. He is focused on pursuing more lifestyle modification including weight loss. [facility] Family History Father No problems noted. Mother No problems noted. Social History Housing: Apartment Alcohol intake: current Alcohol intake frequency: a few times a month Patient Tobacco Use Status: Former Tobacco user e-Cigarette/Vaping Use: Never Used service: Yes Current occupational status: retired Cognitive needs: No Hearing needs: No Vision needs: Yes (reading glasses) Review of Systems Const Denies chills, Denies fatigue, Denies fever(s), Denies frequent falls, Denies weakness, Denies weight gain and Denies weight loss ENT Denies dizziness Card Denies chest pain, Denies leg edema, Denies lightheadedness, Denies palpitations, Denies dyspnea, Denies dyspnea on exertion and Denies orthopnea Resp Denies cough, Denies dyspnea and Denies dyspnea on exertion GI Denies bloating and Denies change in bowel habits Musc Denies muscle weakness, Denies numbness and Denies tingling Neuro Denies dizziness, Denies frequent falls, Denies numbness, Denies tingling and Denies weakness Endo Denies fatigue and Denies palpitations Physical Exam Vital Signs: Last Vital Signs Pulse 83 02/21/25 14:03 BP 120/64 02/21/25 14:03 BMI result Body Mass Index 40.5 Const General: cooperative, comfortable, no acute distress, alert, awake and Physically active Nutritional Appearance: obese Orientation/consciousness: patient oriented x3 Limitations: no limitations HEENT Head: Yes normocephalic and Yes atraumatic Neck Neck: Yes trachea midline, Yes supple and Yes no JVD Resp Effort & Inspection: normal respiratory effort Auscultation: clear to auscultation bilaterally Cardio Jugular venous distension: no JVD Palpation: normal PMI Rate: regular rate Rhythm: regular rhythm Heart sounds: S1 normal heart sound present, S2 normal heart sound present, no click, no gallops, no murmurs and no rubs Bruits: no carotid bruits Peripheral pulses: Peripheral pulses 2+ throughout GI Auscultation: normal bowel sounds Skin General skin exam: no rashes or lesions noted Neuro General: patient oriented x3 and no focal motor deficits Extrem General: Yes no clubbing, cyanosis or edema Psych Appearance: grossly normal Office Procedures EKG Details: EKG shows normal sinus rhythm with right [place] [address]-[id number], Complete Assessment & Plan Assessment & Plan (1) CAD (coronary artery disease): Code(s): I25.10 - Atherosclerotic heart disease of [place] coronary artery without angina pectoris Category: Medical Qualifiers: Coronary Disease-Associated Artery/Lesion type: [place] artery [place] vs. transplanted heart: unspecified whether [place] or transplanted heart Associated angina: without angina Qualified Code(s): I25.10 - Atherosclerotic heart disease of [place] coronary artery without angina pectoris Plan: Premature atherosclerosis with coronary artery disease and myocardial infarction in atrial 56 with what appears to be on EKGs inferior infarct possibly RCA related infarct. Do not have a copy of his cardiac catheterization but says that there was an unsuccessful attempt at trying to open infarct related artery. However since then he has done well and currently he is not having any symptoms of angina. He is recommended to continue with aggressive medical therapy. Pathophysiology of atherosclerosis and myocardial infarction was discussed. Continue lifelong aspirin therapy. Continue aggressive risk factor modification with goal hemoglobin A1c less than 7% being pursue through your office and [facility] diabetes program. Continue aggressive blood pressure control which is currently well optimized on current therapy importance of good blood pressure control was discussed. Advised to monitor blood pressure at home maintain a log. Goal blood pressure less than 130/84. Continue high-intensity statin therapy with well optimized LDL. Encouraged to continue participate in lifestyle modification with weight loss program. He understands agrees. Will obtain an echocardiogram to evaluate LV systolic function especially given his inferior infarct to account for any negative remodeling that may require further aggressive neurohormonal modulation. Will follow up in the clinic in 1 year's time otherwise. Will follow up sooner PRN. Symptoms of angina were discussed. Thank you for allowing me to partake in his care Orders: Orders CA echo transthoracic complete Today I25.10 - Atherosclerotic heart disease of [place] coronary artery without angina pectoris Medications: New aspirin (Ecotrin Low Strength) 81 mg PO DAILY 30 tabs 5RF I25.10 - Atherosclerotic heart disease of [place] coronary artery without angina pectoris Coding Level of Care Code New Pt Level 4 (87921) Complex EM visit Add On G2211 Diagnoses Coronary artery disease involving [place] coronary artery without angina pectoris, unspecified whether [place] or transplanted heart I25.10 Coronary Disease-Associated Artery/Lesion type: [place] artery [place] vs. transplanted heart: unspecified whether [place] or transplanted heart Associated angina: without angina CPT Codes EKG - CPT: 78129-[id number], Complete ([id number])
[2025-02-21 14:03] VITALS: BP 120/64; PULSE 83; BMI 40.5
--- OUTSIDE RECORDS SUMMARY | 2025-02-21 18:25 | XMS_ITS | Patient Health Record ---
Author Organization [facility] Address [address] [place] [id number] Care Team Providers Care Curtain Cutter Name Role Phone JORDY PONCE M.D. 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) Active confirmed Plan Of Treatment Future Test Test Name Order Date COLONOSCOPY 03/14/2019 Insurance Providers Payer Name Payer Address Payer Phone Subscriber Number Group Number Insured Name Patient Relationship to Insured Coverage Start Date Coverage End Date [id number] [place] [address] [phone] [id number] SAMEER CARPENTER Self - patient is the insured Medical (General) History Medical History History ICD Code type II diabetes hypertension coronary artery disease with history of [place] in 2014 and obstructive sleep apnea/CPAP Surgical History Surgery Date(Month/Year) appendectomy kidney stone removals cyst removal on back
== END 2025-02-21 14:39 | disposition home or self-care (01) ==
LOC: HO.HCS 13:55
PROVIDERS: PCP Internal Medicine; Visit Provider Internal Medicine Cardiovascular Disease
DX: I25.10 Atherosclerotic heart disease of native coronary artery without angina pectoris (principal)
CPT/HCPCS: 93010; 99204; G2211

== ENCOUNTER → 2025-02-21 13:54 | Outpatient (BNVA) | payer MEDICARE, SELFPAY | PROVIDERS: PCP Internal Medicine; Visit Provider Internal Medicine Cardiovascular Disease | DX: I25.10 Atherosclerotic heart disease of native coronary artery without angina pectoris (principal); I25.2 Old myocardial infarction; R94.31 Abnormal electrocardiogram [ECG] [EKG]; Z87.891 Personal history of nicotine dependence | CPT/HCPCS: 93005; 99202 ==

== ENCOUNTER → 2025-04-02 13:23 | Outpatient (REF) | payer MEDICARE, SELFPAY ==
--- NOTE | 2025-04-02 13:30 | CA_ITS ---
Transthoracic Echocardiogram Patient (Last, First, Middle): Juan Santos S Gender: M Date of : 1955 Age: 69 Procedure Date: 04/02/2025 Procedure Type: Transthoracic Echocardiogram Location: OP Height: 172.72 cm Weight: 120.2 kg BSA: 2.30 m2 Heart Rate: bpm BP: 112 / 62 mmHg Personal Injury Specialist: TO Referring MD: Jabier Lynne MD Symptoms: I25.10 - Atherosclerotic heart disease of [place] coronary artery without... Study Quality: Fair/Contrast ECG Rhythm: Sinus Conclusions: - The left ventricular systolic function is normal. The calculated ejection fraction is 59% by biplane method. - There is moderate calcification of the aortic valve. There is mild aortic valve stenosis. Findings Procedure Information Contrast agent, definity, is being given per protocol without apparent complications. Left Ventricle Normal left ventricular cavity size. There is mildly increased left ventricular wall thickness. The left ventricular systolic function is normal. The calculated ejection fraction is 59% by biplane method. There is no evidence of regional wall motion abnormalities. Diastolic function is normal for age. Right Ventricle Normal right ventricular cavity size and systolic function. Atria Both atria are normal in size. Aortic Valve There is moderate calcification of the aortic valve. There is mild aortic valve stenosis. There is no aortic valve regurgitation. Mitral Valve There is mild mitral annular calcification. There is no mitral valve regurgitation. There is no mitral valve stenosis. Pulmonic Valve The pulmonic valve is likely normal. Tricuspid Valve There is trace tricuspid valve regurgitation. There is no evidence of pulmonary hypertension. Great Vessels The asc aorta is normal in size. Venous The inferior vena cava is normal in size and collapses greater than 50% with inspiration. Pericardium/Pleural There is no evidence of pericardial effusion. Prior Study Comparison No prior study available for comparison. Measurements 2D Linear Measurements IVSd: 1.24 0.6-0.9/0.6-1.0 cm LVIDd: 4.92 3.9-5.3/4.2-5.9 cm LVIDd Index: 2.14 2.4-3.2/2.2-3.1 cm/m2 LVIDs: 3.13 2.0-3.6 cm LVPWd: 1.17 0.7-1.1 cm LA Diam: 4.00 2.7-3.8/3.0-4.0 cm LAIDs Index: 1.74 1.5-2.3 cm/m2 LV Mass: 285.73 67-162/88-224 g LV Mass Index: 124.23 43-95/49-115 g/m2 LVOT Diam: 2.30 3.0+(-)1.3 cm 2D Systolic Function EF 4C: 56.50 >55% EF 2C: 61.40 >55% EF BiP: 58.50 >55% Mitral Valve MV Pk E: 0.64 MV PK A: 0.90 MV Decel Time: 151.00 E/A: 0.70 E'Lateral: 6.74 E'Medial: 5.00 E/E' Med: 12.90 E/E' Lat: 9.50 PHT: 44.00 MVA PHT: 5.00 Decel [place]: 4.27 Aortic Valve AoV Pk Khalif: 2.57 AoV Mn Khalif: 1.95 AoV VTI: 0.53 AoV Pk Grad: 26.00 Aov Mn Grad: 16.00 BELKIS Cont.VTI: 1.47 LVOT LVOT Pk Khalif: 0.89 LVOT Mn Khalif: 0.64 LVOT VTI: 0.19 LVOT Pk Grad: 3.00 LVOT Mn Grad: 2.00 LVOT Diam: 2.30 LVOT Area: 4.15 Diastolic Function MV Pk E: 0.64 MV Pk A: 0.90 E/A: 0.70 E'Medial: 5.00 E/E' Med: 12.90 E' Laterial: 6.74 E/E' Lat: 9.50 Right Ventricle TAPSE (mm): 25.40 TVS' Khalif: 12.00 Tricuspid Valve RA Press: 3.00 Great Vessels Aorta Sinus of Valsalva: 3.81 2.0-3.5 cm Ao Asc: 3.60 2.1-3.4 cm Updated in Other Vendor System with Status of Final Paolo Aldana MD electronically signed on 04/03/2025 9:22:15 AM with status of Final
--- OUTSIDE RECORDS SUMMARY | 2025-04-02 16:17 | XMS_ITS | Patient Health Record ---
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 Primary Care Provider Evelio Glaser Jr Unavailable Reason For Referral No Information Medications Medication SIG (Take, Route, Frequency, Duration) Notes Start Date End Date Status Atorvastatin Calcium 40 MG 1 tablet Oral ly Once a day; Duration: 30 day(s) Active metFORMIN HCl 500 MG 1 tablet with a nabeel l Orally twice a day Active glipiZIDE 5 MG 1 tablet Orally twic e a day Active Lisinopril 5 MG 1 tablet Orally Once a day; Duration: 30 day(s) Active Venlafaxine HCl 75 MG 1 tablet with food Orally Once a day; Duration: 30 day(s) Active Metoprolol Succinate 100 MG 1 capsule Or ally Once a day; Duration: 30 day(s) Active Basaglar KwikPen 100 UNIT/ML 24 units Subcutaneous once a day Active MiraLax (colon prep) 8.3 ounce ((238) grams mixed with Gatorade or Crystal Light orally begin at 5:00 p.m. the day before the procedure; Duration: 1 day 03/14/2019 Active Fish Oil 1000 [...] Problem Status W/U Status Risk Notes Problem Colon cancer screening ([id number]) Colon cancer screening (Z12.11) Active confirmed Problem Long-term current use of insulin ([id number]) assisted (current) use of insulin (Z79.4) Active confirmed Plan Of Treatment Future Test Test Name Order Date COLONOSCOPY 03/14/2019 Insurance Providers Payer Name Payer Address Payer Phone Subscriber Number Group Number Insured Name Patient Relationship to Insured Coverage Start Date Coverage End Date [facility] [id number] [place] [address] [id number] SAMEER CARPENTER Self - patient is the insured Medical (General) History Medical History History ICD Code type II diabetes hypertension coronary artery disease with history of [place] in 2014 and obstructive sleep apnea/CPAP Surgical History Surgery Date(Month/Year) appendectomy kidney stone removals cyst removal on back
== END ==
LOC: HO.CARD 13:23
PROVIDERS: PCP Internal Medicine; Visit Provider Internal Medicine Cardiovascular Disease
DX: I25.10 Atherosclerotic heart disease of native coronary artery without angina pectoris (principal)
CPT/HCPCS: 93306; Q9957

== ENCOUNTER → 2025-04-02 13:30 | Outpatient (BNV) | payer MEDICARE, SELFPAY | PROVIDERS: PCP Internal Medicine; Visit Provider Internal Medicine | DX: I35.0 Nonrheumatic aortic (valve) stenosis (principal) | CPT/HCPCS: 93306 ==

== ENCOUNTER 2025-04-08 11:34 | Outpatient (REF) | payer MEDICARE, SELFPAY ==
[2025-04-08 13:32] LABS: Alanine Aminotransferase 30 U/L (0-40); Albumin Level 4.4 g/dL (3.5-5.0); Alkaline Phosphatase 48 U/L (39-117); Anion Gap 15 (12-20); Aspartate Amino Transferase 29 U/L (5-37); Blood Urea Nitrogen 17 mg/dL (9-16); Calcium 9.9 mg/dL (8.4-10.2); Carbon Dioxide 26 mmol/L (22-29); Chloride 103 mmol/L (96-108); Cholesterol 217 mg/dL (<200); Estimated Glomerular Filt Rate > 60; HDL Cholesterol 36 mg/dL (>40); Potassium 4.7 mmol/L (3.3-5.1); Sodium 139 mmol/L (135-145); Total Protein 7.7 g/dL (6.5-8.0); Triglycerides 422 mg/dL (<150)
[2025-04-08 13:35] LABS: Microalbum/Creatinine Ratio Ur 156.8 ug/mg cr (<30)
[2025-04-08 14:45] LABS: Hemoglobin A1C 147.2014 umol/L; Total Hemoglobin (HGBA1C) 2578.0786 umol/L
== END 2025-04-08 11:35 | disposition home or self-care (01) ==
LOC: HO.10HDL 11:34
PROVIDERS: Visit Provider Internal Medicine
DX: E11.9 Type 2 diabetes mellitus without complications (principal)
CPT/HCPCS: 36415; 80053; 80061; 82043; 82570; 83036

== ENCOUNTER 2025-04-15 13:05 | Outpatient (AMB) | payer MEDICARE, SELFPAY ==
--- NOTE | 2025-04-15 13:07 | MHC.PC.OV ---
Vital Signs 04/15/25 13:13 Height 5 ft 8 in Weight 263 lb BMI 40.0 BP 98/58 L Blood Pressure Location Lt brachial Position Sitting Respiration 12 Pulse 61 Pulse Source Pulse Oximeter Temp 97.2 F Temp Source Oral Pulse Oximetry (%) 100 Oxygen Delivery Method Room Air Intake Visit Reasons: Diabetic follow-up Intake Note: Follow up on DM. Patient needs refill on meds. Store Host Required: No Allergies No Known Allergies (No Known Allergies*) Allergy (Verified 04/15/25 13:09) Tobacco use date assessed: 04/15/25 Fall risk assessment: No Falls in past year Last assessed Fall Risk: 04/15/25 Dental Screening Dental Screen Date: 04/15/25 Did you have a dental visit in the last 12 months?: Yes Did you have a dental problem in the last 6 months where you did not have access to dental care?: No Was dental information given to patient?: Patient has dentist HPI HPI Comments History of Present Illness Details 69 year old male with a past medical history of diabetes, HTN presenting for follow up. [facility]: GMI 7.3%. A1C 7.4. On metformin 1000mg daily, trulicity 1.5mg weekly, jardiance, glipizide, lantus 23 units daily. [facility] guille [facility] Eye exam is up to date. will return in 5 months. Early of macular degeneration. Declines medication increase today, is improving diet CV: on metoprolol, lisinopril, atorvastatin. BP controlled. Following with cardiology. No chest pain Colonoscopy [address] [facility] [address] Arriaza. ROS CONSTITUTIONAL: Denies weight loss, fever and chills. HEENT: Denies changes in vision and hearing. RESPIRATORY: Denies SOB and cough. CV: Denies palpitations and CP GI: Denies abdominal pain, nausea, vomiting and diarrhea. : Denies dysuria and urinary frequency. MSK: Denies new myalgia and joint pain. SKIN: Denies rash and pruritus. NEUROLOGICAL: Denies headache PSYCHIATRIC: Denies recent changes in mood. PHYSICAL EXAM: GENERAL: Alert and oriented x 3. NAD EYES: EOMI. Anicteric. HENT: Moist mucous membranes. No scleral icterus. No cervical lymphadenopathy. LUNGS: Clear to auscultation bilaterally. CARDIOVASCULAR: Regular rate and rhythm. No murmur. No JVD. ABDOMEN: Soft, non-tender +bs EXTREMITIES: No edema. Non-tender. SKIN: No rashes or lesions. Warm. NEUROLOGIC: No focal neurological deficits. CN II-XII grossly intact PSYCHIATRIC: Cooperative. Appropriate mood and affect [facility] Family History Father No problems noted. Mother No problems noted. Social History Housing: Apartment Alcohol intake: current Alcohol intake frequency: a few times a month Patient Tobacco Use Status: Former Tobacco user e-Cigarette/Vaping Use: Never Used Second Hand Smoke Exposure: No service: Yes Current occupational status: retired Cognitive needs: No Hearing needs: No Vision needs: Yes (reading glasses) Questionnaire PHQ-9 Over the last 2 weeks, how often have you been bothered by any of the following problems? 1. Little interest or pleasure in doing things: not at all 2. Feeling down, depressed, or hopeless: not at all 3. Trouble falling or staying asleep, or sleeping too much: nearly every day 4. Feeling tired or having little energy: not at all 5. Poor appetite or overeating: not at all 6. Feeling bad about yourself - or that you are a failure or have let yourself or your family down: not at all 7. Trouble concentrating on things, such as reading the newspaper or watching television: not at all 8. Moving or speaking so slowly that other people could have noticed. Or the opposite - being so fidgety or restless that you have been moving around a lot more than usual: not at all 9. Thoughts that you would be better off or of hurting yourself in some way: not at all Total score: 3 Depression Screening Interpretation: Negative Depression Screening Done: Yes 64945 - PHQ-9 Billing: Yes Source: Developed by Drs. Sergio Louis, Rihanna Holder, Bill Joshi and colleagues, with an educational shabbir from [employer]. Thrive Questionnaire Date Thrive assessed: 04/15/25 I am a: Patient What is your living situation today?: I have a steady place to live Within the past 12 months, did the food you bought not last and you didn't have the money to get more?: Never true Within the past 12 months, did you worry whether your food would run out before you got money to buy more?: Never true Do you have trouble paying for medicines?: No Do you have trouble getting transportation to medical appointments?: No Do you have trouble paying your heating and electricity bill?: No Do you have trouble taking care of your child, family member or friend?: No Do you have trouble with day-to-day activities such as bathing, preparing meals, shopping, managing finances, etc.?: No Are you currently unemployed and looking for a job?: I choose not to answer this question Are you interested in more education?: No Please select the resources that you would like help with: None Currently or been in a relationship where the following occur: No concerns reported THRIVE Score: 0 ROYER-7 AMB Questionnaire ROYER-7 Date ROYER - 7 assessed: 04/15/25 Feeling nervous, anxious, or on edge: 0 = Not at all Not being able to stop or control worryin = Not at all Worrying too much about different things: 0 = Not at all Trouble relaxin = Not at all Being so restless that it is hard to sit still: 0 = Not at all Becoming easily annoyed or irritable: 0 = Not at all Feeling afraid as if something awful might happen: 0 = Not at all Total ROYER-7 score (0-4 normal; 5-9 mild; 10-14 moderate; 15-21 severe): 0 Source: Developed by Drs. Sergio Louis, Rhianna Holder, Bill Joshi and colleagues, with an educational shabbir from [employer]. ROYER-7 Assessment Billing ROYER-7 Assessment Tool: ROYER-7 Assessment 65553 Physical exam (Primary Care) Vital Signs: Last Vital Signs Temp 97.2 F 04/15/25 13:13 Pulse 61 04/15/25 13:13 Resp 12 04/15/25 13:13 BP 98/58 L 04/15/25 13:13 Pulse Ox 100 04/15/25 13:13 Oxygen Delivery Method Room Air 04/15/25 13:13 BMI result Body Mass Index 40.0 Tobacco/Smoking Status: Tobacco use Status Tobacco use date assessed 04/15/25 04/15/25 13:10 Patient Tobacco Use Status Former Tobacco user 04/15/25 13:10 e-Cigarette/Vaping Use Never Used 04/15/25 13:10 PHQ-9: PHQ-9 Score PHQ-9: Total score 3 04/15/25 13:24 Depression Screening Interpretation: Negative Thrive Assessment: Date of Thrive Assessment Date Thrive assessed 04/15/25 04/15/25 13:10 Currently or been in a relationship where the following occur: No concerns reported Coding Level of Care Code Est Pt Level 4 (87590) Complex EM visit Add On G2211 Diagnoses Type 2 diabetes mellitus without complication, without long-term current use of insulin E11.9 Diabetes mellitus type: type 2 Diabetes mellitus skilled nursing insulin use: without manager long term care use Diabetes mellitus complication status: without complication Coronary artery disease involving [place] coronary artery without angina pectoris, unspecified whether [place] or transplanted heart I25.10 Coronary Disease-Associated Artery/Lesion type: [place] artery [place] vs. transplanted heart: unspecified whether [place] or transplanted heart Associated angina: without angina History of [place] (myocardial infarction) I25.2 Additional Codes ROYER-7 Assessment Billing - ROYER-7 Assessment Tool: ROYER-7 Assessment 32124 ([id number]) PHQ-9 - 16670 - PHQ-9 Billing: Yes ([id number]) Assessment & Plan Assessment & Plan (1) Diabetes: Code(s): E11.9 - Type 2 diabetes mellitus without complications Category: Medical Qualifiers: Diabetes mellitus type: type 2 Diabetes mellitus skilled nursing insulin use: without skilled nursing use Diabetes mellitus complication status: without complication Qualified Code(s): E11.9 - Type 2 diabetes mellitus without complications (2) CAD (coronary artery disease): Code(s): I25.10 - Atherosclerotic heart disease of [place] coronary artery without angina pectoris Category: Medical Qualifiers: Coronary Disease-Associated Artery/Lesion type: [place] artery [place] vs. transplanted heart: unspecified whether [place] or transplanted heart Associated angina: without angina Qualified Code(s): I25.10 - Atherosclerotic heart disease of [place] coronary artery without angina pectoris (3) History of [place] (myocardial infarction): Code(s): I25.2 - Old myocardial infarction Category: Medical Plan 69 year old male presenting for follow up Diabetes-suboptimal. diet getting back on track, declines medication increase Continue current doses. Eye exam is up to date. Refills sent CAD-following with cardiology. Blood pressure is well controlled. Medications: New glipizide 5 mg PO BID 180 tabs 3RF Refilled metoprolol succinate ER 100 mg PO DAILY 90 ea 3RF
[2025-04-15 13:13] VITALS: BP 98/58; PULSE 61; RESP 12; TEMP 36.2; O2SAT 100; BMI 40.0
== END 2025-04-15 13:39 | disposition home or self-care (01) ==
LOC: HO.HMCFM 13:06
PROVIDERS: PCP Internal Medicine; Visit Provider Internal Medicine
DX: E11.9 Type 2 diabetes mellitus without complications (principal); I25.10 Atherosclerotic heart disease of native coronary artery without angina pectoris; I25.2 Old myocardial infarction

== ENCOUNTER → 2025-04-15 13:05 | Outpatient (BNVA) | payer MEDICARE, SELFPAY | PROVIDERS: PCP Internal Medicine; Visit Provider Internal Medicine | DX: E11.9 Type 2 diabetes mellitus without complications (principal); I25.10 Atherosclerotic heart disease of native coronary artery without angina pectoris; I10 Essential (primary) hypertension; I25.2 Old myocardial infarction; Z79.4 Long term (current) use of insulin; Z79.85 Long-term (current) use of injectable non-insulin antidiabetic drugs; Z13.30 Encounter for screening examination for mental health and behavioral disorders, unspecified | CPT/HCPCS: 96127; 99212 ==